=== PATIENT | male | born 1930 | race Caucasian/White ===

== ENCOUNTER 2017-06-29 12:27 | Observation (INO) | payer OTHER, BC, MEDICARE ==
--- NOTE | 2017-06-29 12:53 | EDM.PDOC ---
ED HPI GENERAL MEDICAL PROBLEM - General Stated Complaint: FELLED Time Seen by Provider: 06/29/17 12:27 Source of Information: Reports: Patient History Limitations: Reports: No Limitations - History of Present Illness INITIAL COMMENTS - FREE TEXT/NARRATIVE: HISTORY AND PHYSICAL: History of present illness: [Patient is brought to the emergency room by EMS. Patient was apparently found lying beside his truck, unconscious. The person who found him stated that he slipped while climbing into his truck, causing him to fall, though the actual fall was unwitnessed. Witnesses state the patient was unconscious for 1 minute. The patient denies any recollection of falling and the events surrounding his injury. He remembers eating breakfast this morning but no other details. His primary care provider is the [place] [facility], and no records are available at the time of his presentation to the ER. The patient denies any pain upon presentation. No headache, neck pain or areas of tenderness on the scalp. No chest pain, shortness of breath or difficulty breathing. He has a history of triple bypass, unknown if stents were placed, type 2 diabetes, hypertension. Medication list is not available at the time of this dictation.] Review of systems: As per history of present illness and below otherwise all systems reviewed and negative. Past medical history: As per history of present illness and as reviewed below otherwise noncontributory. Surgical history: As per history of present illness and as reviewed below otherwise noncontributory. Social history: No reported history of drug or alcohol abuse. Family history: As per history of present illness and as reviewed below otherwise noncontributory. Physical exam: HEENT: Small abrasions to posterior scalp, just right of midline. Otherwise normocephalic. PERRLA. No areas of tenderness to his scalp. No lacerations or abrasions noted to his face. No C-spine tenderness. Lungs: Clear to auscultation, breath sounds equal bilaterally. Heart: S1S2, irregularly irregular rate without murmur. Abdomen: Soft, nondistended, nontender. Negative for masses guarding or rebound . Pelvis: Stable nontender. Genitourinary: Deferred. Rectal: Normal sphincter tone. Scant amount of stool in colon negative for occult blood. Extremities: Small abrasion to right lower gastelum. No swelling or cyanosis to feet or lower legs. Full range of motion without pain to feet and lower legs. No weakness to upper or lower extremities. Neuro: Motor and sensory unremarkable throughout. Unable to recall events leading up to the fall. Is able to recall the current year accurately. Diagnostics: [CBC, CMP, PT/INR, troponin, EKG, UA, CT head without contrast, CT C-spine without contrast] Impression: [Syncopal episode Fall] Plan: [Discussed with patient that hemoglobin is slightly low at 10.7 but otherwise lab and CT findings are unremarkable. Reviewed with Dr. Gurrola who agrees to accept patient for observation. Patient in agreement with this plan.] Definitive disposition and diagnosis as appropriate pending reevaluation and review of above. - Related Data Allergies Allergy/AdvReac Type Severity Reaction Status Date / Time Penicillins Allergy Hives Verified 06/29/17 12:42 Home Meds: Home Meds Acetaminophen [Tylenol] 650 mg PO Q6HR PRN 06/29/17 [History] Ascorbic Acid [Vitamin C] 500 mg PO DAILY 06/29/17 [History] Aspirin 325 mg PO DAILY 06/29/17 [History] Hydrochlorothiazide 25 mg PO DAILY 06/29/17 [History] Ibuprofen 200 mg PO TID 06/29/17 [History] Losartan [Cozaar] 25 mg PO DAILY 06/29/17 [History] Metoprolol Succinate [Toprol XL] 50 mg PO BID 06/29/17 [History] Oxybutynin 5 mg PO DAILY 06/29/17 [History] Simvastatin [Zocor] 40 mg PO BEDTIME 06/29/17 [History] Vitamin E Mixed [Vitamin E] 250 units PO DAILY 06/29/17 [History] glipiZIDE [Glucotrol XL] 5 mg PO BID 06/29/17 [History] metFORMIN [Glucophage] 1,000 mg PO DAILY 06/29/17 [History] ED ROS GENERAL - Review of Systems Review Of Systems: ROS reveals no pertinent complaints other than HPI. - Physical Exam Exam: See Below Course - Vital Signs Last Recorded V/S: Last Vital Signs Temp 98.7 F 06/29/17 15:00 Pulse 73 06/29/17 15:00 Resp 20 06/29/17 15:00 BP 138/77 06/29/17 15:00 Pulse Ox 95 06/29/17 17:16 - Orders/Labs/Meds Orders: Active Orders 24 hr Category Date Time Status EKG Documentation Completion [RC] STAT Care 06/29/17 12:31 Active Cervical Spine wo Cont [CT] Stat Exams 06/29/17 12:30 Ordered Head wo Cont [CT] Stat Exams 06/29/17 12:30 Ordered Medication Orders Acetaminophen (Tylenol) 650 mg PO Q4H PRN PRN Reason: Pain Ascorbic Acid (Vitamin C) 500 mg PO DAILY [facility] Aspirin (Aspirin) 325 mg PO DAILY [facility] Insulin Aspart (Novolog) 0 unit SUBCUT TIDAC [facility] PRN Reason: Protocol Last Admin: 06/29/17 17:54 Dose: Not Given Simvastatin (Zocor) 40 mg PO BEDTIME [facility] Sodium Chloride (Saline Flush) 2.5 ml FLUSH ASDIRECTED PRN PRN Reason: Keep Vein Open Labs: Laboratory Tests 06/29/17 06/29/17 06/29/17 Range/Units 13:09 13:09 13:09 WBC 6.25 (4.0-11.0) K/uL RBC 4.17 L (4.50-5.90) M/uL Hgb 10.7 L (13.0-17.0) g/dL Hct 33.7 L (38.0-50.0) % MCV 80.8 (80.0-98.0) fL MCH 25.7 L (27.0-32.0) pg MCHC 31.8 (31.0-37.0) g/dL RDW Std Deviation 42.6 (28.0-62.0) fl RDW Coeff of [place] 15 (11.0-15.0) % Plt Count 246 (150-400) K/uL MPV 9.00 (7.40-12.00) fL Neut % (Auto) 77.8 (48.0-80.0) % Lymph % (Auto) 11.5 L (16.0-40.0) % [place] % (Auto) 9.4 (0.0-15.0) % Eos % (Auto) 1.1 (0.0-7.0) % Baso % (Auto) 0.2 (0.0-1.5) % Neut # (Auto) 4.9 (1.4-5.7) K/uL Lymph # (Auto) 0.7 (0.6-2.4) K/uL [place] # (Auto) 0.6 (0.0-0.8) K/uL Eos # (Auto) 0.1 (0.0-0.7) K/uL Baso # (Auto) 0.0 (0.0-0.1) K/uL Nucleated RBC % 0.0 /100WBC Nucleated RBCs # 0 K/uL INR 1.25 H (0.86-1.11) Sodium 135 L (136-146) mmol/L Potassium 3.6 (3.5-5.1) mmol/L Chloride 104 (98-110) mmol/L Carbon Dioxide 22 (21-31) mmol/L BUN 12 (6.0-23.0) mg/dL Creatinine 0.8 (0.6-1.5) mg/dL Est Cr Clr Drug Dosing TNP Estimated GFR (MDRD) > 60.0 ml/min Glucose 206 H (60-110) mg/dL Calcium 8.3 L (8.8-10.8) mg/dL Magnesium (1.5-2.3) mEq/L Total Bilirubin 0.4 (0.1-1.5) mg/dL AST 15 (5-40) IU/L ALT 16 (8-54) IU/L Alkaline Phosphatase 77 (40-150) Troponin I < 0.10 (0.0-0.29) NG/ML Total Protein 5.9 L (6.0-8.0) g/dL Albumin 2.6 L (3.4-4.8) g/dL Globulin 3.3 (2.0-3.5) g/dL Albumin/Globulin Ratio 0.8 L (1.3-2.8) Urine Color Urine Appearance Urine pH (5.0-8.0) Ur Specific [place] (1.001-1.035) Urine Protein (NEGATIVE) mg/dL Urine Glucose (UA) (NEGATIVE) mg/dL Urine Ketones (NEGATIVE) mg/dL Urine Occult Blood (NEGATIVE) Urine Nitrite (NEGATIVE) Urine Bilirubin (NEGATIVE) Urine Urobilinogen (<2.0) EU/dL Ur Leukocyte Esterase (NEGATIVE) Urine RBC (0-2/HPF) Urine WBC (0-5/HPF) Ur Epithelial Cells (NONE-FEW) Urine Bacteria (NEGATIVE) Urine Mucus (NONE-MOD) 06/29/17 06/29/17 Range/Units 13:09 13:38 WBC (4.0-11.0) K/uL RBC (4.50-5.90) M/uL Hgb (13.0-17.0) g/dL Hct (38.0-50.0) % MCV (80.0-98.0) fL MCH (27.0-32.0) pg MCHC (31.0-37.0) g/dL RDW Std Deviation (28.0-62.0) fl RDW Coeff of [place] (11.0-15.0) % Plt Count (150-400) K/uL MPV (7.40-12.00) fL Neut % (Auto) (48.0-80.0) % Lymph % (Auto) (16.0-40.0) % [place] % (Auto) (0.0-15.0) % Eos % (Auto) (0.0-7.0) % Baso % (Auto) (0.0-1.5) % Neut # (Auto) (1.4-5.7) K/uL Lymph # (Auto) (0.6-2.4) K/uL [place] # (Auto) (0.0-0.8) K/uL Eos # (Auto) (0.0-0.7) K/uL Baso # (Auto) (0.0-0.1) K/uL Nucleated RBC % /100WBC Nucleated RBCs # K/uL INR (0.86-1.11) Sodium (136-146) mmol/L Potassium (3.5-5.1) mmol/L Chloride (98-110) mmol/L Carbon Dioxide (21-31) mmol/L BUN (6.0-23.0) mg/dL Creatinine (0.6-1.5) mg/dL Est Cr Clr Drug Dosing Estimated GFR (MDRD) ml/min Glucose (60-110) mg/dL Calcium (8.8-10.8) mg/dL Magnesium 1.0 L (1.5-2.3) mEq/L Total Bilirubin (0.1-1.5) mg/dL AST (5-40) IU/L ALT (8-54) IU/L Alkaline Phosphatase (40-150) Troponin I (0.0-0.29) NG/ML Total Protein (6.0-8.0) g/dL Albumin (3.4-4.8) g/dL Globulin (2.0-3.5) g/dL Albumin/Globulin Ratio (1.3-2.8) Urine Color YELLOW Urine Appearance CLEAR Urine pH 6.0 (5.0-8.0) Ur Specific [place] 1.025 (1.001-1.035) Urine Protein TRACE (NEGATIVE) mg/dL Urine Glucose (UA) NEGATIVE (NEGATIVE) mg/dL Urine Ketones NEGATIVE (NEGATIVE) mg/dL Urine Occult Blood NEGATIVE (NEGATIVE) Urine Nitrite NEGATIVE (NEGATIVE) Urine Bilirubin NEGATIVE (NEGATIVE) Urine Urobilinogen 0.2 (<2.0) EU/dL Ur Leukocyte Esterase NEGATIVE (NEGATIVE) Urine RBC 0-2 (0-2/HPF) Urine WBC 0-1 (0-5/HPF) Ur Epithelial Cells RARE (NONE-FEW) Urine Bacteria RARE (NEGATIVE) Urine Mucus LIGHT (NONE-MOD) Meds: Medications Generic Name Dose Route Start Last Admin Trade Name Freallyn PRN Reason Stop Dose Admin Acetaminophen 650 mg 06/29/17 15:24 Tylenol PO Q4H PRN Pain Ascorbic Acid 500 mg 06/30/17 09:00 Vitamin C PO DAILY [facility] Aspirin 325 mg 06/30/17 09:00 Aspirin PO DAILY [facility] Insulin Aspart 0 unit 06/29/17 17:15 06/29/17 17:54 Novolog SUBCUT Not Given TIDAC [facility] Protocol Simvastatin 40 mg 06/29/17 21:00 Zocor PO BEDTIME [facility] Sodium Chloride 2.5 ml 06/29/17 15:24 Saline Flush FLUSH ASDIRECTED PRN Keep Vein Open Discontinued Medications Generic Name Dose Route Start Last Admin Trade Name Freq PRN Reason Stop Dose Admin Magnesium Sulfate 4 gm/ Premix 100 mls @ 50 mls/hr 06/29/17 17:02 06/29/17 18 :01 IV 06/29/17 19:01 50 mls/hr ONETIME ONE Administration Non-Formulary Medication 250 units 06/30/17 09:00 Vitamin E Mixed [Vitamin E] PO DAILY [facility] Departure - Departure Time of Disposition: 14:50 Disposition: Refer to Observation Condition: Good Clinical Impression: Syncope - Discharge Information - My Orders Last 24 Hours: My Active Orders 06/29/17 12:30 Cervical Spine wo Cont [CT] Stat Head wo Cont [CT] Stat 06/29/17 12:31 EKG Documentation Completion [RC] STAT - Assessment/Plan Last 24 Hours: My Active Orders 06/29/17 12:30 Cervical Spine wo Cont [CT] Stat Head wo Cont [CT] Stat 06/29/17 12:31 EKG Documentation Completion [RC] STAT
[2017-06-29 13:35] LABS: CHLORIDE,CL 104 mmol/L (98-110); SODIUM,NA 135 mmol/L (136-146)
[2017-06-29] MEDS ORDERED: Acetaminophen 325 MG Tab PO PRN (15:24)
[2017-06-29] MEDS ORDERED: Sodium Chloride 0.9% 2.5 ML Syringe FLUSH PRN (15:24)
--- NOTE | 2017-06-29 16:34 | PCM.HP ---
H&P History of Present Illness - General Date of Service: 06/29/17 Admit Problem/Dx: Admission Diagnosis/Problem Admission Diagnosis/Problem Syncope Source of Information: Patient History Limitations: Reports: No Limitations - History of Present Illness Initial Comments - Free Text/Narative: This 86 year old male with pmh of CABG x 5 (2001), HTN, CHF DM, and irregular heart rhythm presented to the ED this morning after falling and being found next to his truck unconscious. Upon interview he is now remembering the event of the morning, but when he was in the ED he didn't remember much of the morning. 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 They stopped somewhere and he had been out of the truck walking around. He went to get back into the truck he remembers placing his foot on the running board and reaching up for the handle in the car, his foot slipped prior to grabbing ahold of the handle and he went backwards, he doesn't remember hitting the ground. He denies any dizziness, lightheadedness, chest pain, palpitations, headache, blurred vision or feeling any different than normal this morning or prior to fall. He has not had any syncope episode before this. He denies any recent illness, neck pain, URI, fevers, or SOB. He denies any bleeding, no black or bloody stools. He reports his "blood has always been low." No hx of seizures or CVA or TIAs. During his interview he is feeling well and denies headache, blurred vision chest pain or palpitations. He reports he can feel the lump on the back of his head, but thats it. In the ED WBC 6.25, Hgb 10.7, troponin negative, ua negative, INR 1.25, Na 135, BS 206. Head and cervical CT negative for acute findings via verbal report to ED provider. BP 140-160/60-70s. EKG SR with PVCs. He will be admitted for observation due fall with head trauma. PCP, [place] [facility]. - Related Data Allergies/Adverse Reactions: Allergies Allergy/AdvReac Type Severity Reaction Status Date / Time Penicillins Allergy Hives Verified 06/29/17 12:42 Home Medications: Home Meds Acetaminophen [Tylenol] 650 mg PO Q6HR PRN 06/29/17 [History] Ascorbic Acid [Vitamin C] 500 mg PO DAILY 06/29/17 [History] Aspirin 325 mg PO DAILY 06/29/17 [History] Hydrochlorothiazide 25 mg PO DAILY 06/29/17 [History] Ibuprofen 200 mg PO TID 06/29/17 [History] Losartan [Cozaar] 25 mg PO DAILY 06/29/17 [History] Metoprolol Succinate [Toprol XL] 50 mg PO BID 06/29/17 [History] Oxybutynin 5 mg PO DAILY 06/29/17 [History] Simvastatin [Zocor] 40 mg PO BEDTIME 06/29/17 [History] Vitamin E Mixed [Vitamin E] 250 units PO DAILY 06/29/17 [History] glipiZIDE [Glucotrol XL] 5 mg PO BID 06/29/17 [History] metFORMIN [Glucophage] 1,000 mg PO DAILY 06/29/17 [History] Past Medical History HEENT History: Reports: Cataract Cardiovascular History: Reports: Angina, Arrhythmia, Bypass, CAD, Heart Failure , High Cholesterol, Hypertension. Denies: Afib, Blood Clots/VTE/DVT Respiratory History: Reports: None. Denies: Asthma, COPD, PE Gastrointestinal History: Reports: None. Denies: GERD, GI Bleed Genitourinary History: Reports: None. Denies: Acute Renal Failure, Chronic Renal Insuffiency, Diabetic Nephropathy Musculoskeletal History: Reports: Arthritis Endocrine/Metabolic History: Reports: Diabetes, Type II Hematologic History: Reports: Anemia - Infectious Disease History Infectious Disease History: Reports: Chicken Pox, Mumps Social & Family History - Family History Family Medical History: Noncontributory - Tobacco Use Smoking Status *Q: Former Smoker Used Tobacco, but Quit: Yes Month Tobacco Last Used: 30 years ago - Alcohol Use Alcohol Use Frequency: Rarely - Recreational Drug Use Recreational Drug Use: No H&P Review of Systems - Review of Systems: Review Of Systems: See Below General: Reports: No Symptoms. Denies: Fever, Chills, Malaise, Fatigue HEENT: Reports: Vertigo (had a little dizziness ambulating in ED for urine sampe , but reports he feels better now.). Denies: Ear Pain, Sinus Congestion, Sore Throat, Visual Changes Pulmonary: Reports: No Symptoms. Denies: Shortness of Breath, Wheezing, Cough, Sputum Cardiovascular: Reports: Edema (BLE, but at baseline, usually wear compression stockings). Denies: Chest Pain, Palpitations, Dyspnea on Exertion, Lightheadedness, Syncope Gastrointestinal: Reports: No Symptoms. Denies: Abdominal Pain, Black Stool, Bloody Stool, Constipation, Diarrhea, Decreased Appetite, Nausea, Vomiting Genitourinary: Reports: No Symptoms. Denies: Dysuria, Frequency, Burning, Pain Musculoskeletal: Reports: No Symptoms. Denies: Neck Pain Skin: Reports: Wound (occiput) Psychiatric: Reports: No Symptoms Neurological: Reports: No Symptoms Hematologic/Lymphatic: Reports: Anemia. Denies: Easy Bleeding Immunologic: Reports: No Symptoms Exam - Exam Exam: See Below - Vital Signs Vital Signs: Last Vital Signs Temp 97.7 F 06/29/17 12:36 Pulse 94 06/29/17 13:41 Resp 20 06/29/17 13:41 BP 144/78 H 06/29/17 13:41 Pulse Ox 94 L 06/29/17 13:41 Weight: 94.347 kg - Exam General: Alert, Oriented, Cooperative HEENT: Conjunctiva Clear, Mucosa Moist & [place], Nares Patent, Posterior Pharynx Clear Neck: Supple, Trachea Midline, 2 Lungs: Clear to Auscultation, Normal Respiratory Effort Cardiovascular: Regular Rate, Normal S1, Normal S2, Irregular Rhythm GI/Abdominal Exam: Normal Bowel Sounds, Soft, Non-Tender, No Organomegaly, No Distention, No Abnormal Bruit, No Mass, Pelvis Stable Extremities: Normal Range of Motion, Non-Tender, Pedal Edema (+1 pitting edema to BLE, L >R). No: Redness Neuro Extensive - Mental Status: Alert, Oriented x3 Neuro Extensive - Motor, Sensory, Reflexes: CN II-XII Intact, Abnormal Gait ( slightly unsteady) Psychiatric: Alert, Normal Affect, Normal Mood - Patient Data Result Diagrams: 06/29/17 13:09 06/30/17 05:41 *Q Meaningful Use (ADM) - VTE *Q VTE Criteria *Q: - Stroke *Q Stroke Criteria *Q: - AMI *Q AMI Criteria *Q: - Problem List (1) Fall SNOMED Code(s): 0856180 ICD Code: W19.XXXA - UNSPECIFIED FALL, INITIAL ENCOUNTER Status: Acute Current Visit: Yes Qualifiers: Encounter type: initial encounter Qualified Code(s): W19.XXXA - Unspecified fall, initial encounter (2) Head trauma SNOMED Code(s): 35958995 ICD Code: S09.90XA - UNSPECIFIED INJURY OF HEAD, INITIAL ENCOUNTER Status: Acute Current Visit: Yes Qualifiers: Encounter type: initial encounter Qualified Code(s): S09.90XA - Unspecified injury of head, initial encounter (3) HTN (hypertension) SNOMED Code(s): 90656901 ICD Code: I10 - ESSENTIAL (PRIMARY) HYPERTENSION Status: Chronic Current Visit: Yes Qualifiers: Hypertension type: essential hypertension Qualified Code(s): I10 - Essential (primary) hypertension (4) CHF (congestive heart failure) SNOMED Code(s): 04798193 ICD Code: I50.9 - HEART FAILURE, UNSPECIFIED Status: Chronic Current Visit: Yes Qualifiers: Congestive heart failure type: unspecified congestive heart failure type Congestive heart failure chronicity: chronic Qualified Code(s): I50.9 - Heart failure, unspecified (5) DM type 2 (diabetes mellitus, type 2) SNOMED Code(s): 80476377 ICD Code: E11.9 - TYPE 2 DIABETES MELLITUS WITHOUT COMPLICATIONS Status: Chronic Current Visit: Yes Qualifiers: Diabetes mellitus complication status: without complication Diabetes mellitus detention insulin use: without rn long term care use Qualified Code(s): E11.9 - Type 2 diabetes mellitus without complications (6) Hx of CABG SNOMED Code(s): 835829039 ICD Code: Z95.1 - PRESENCE OF AORTOCORONARY BYPASS GRAFT Status: Chronic Current Visit: Yes (7) Irregular cardiac rhythm SNOMED Code(s): 477405894, 153910498 ICD Code: I49.9 - CARDIAC ARRHYTHMIA, UNSPECIFIED Status: Chronic Current Visit: Yes Problem List Initiated/Reviewed/Updated: Yes Orders Last 24hrs: Active Orders 24 hr Category Date Time Status Antiembolic Devices [RC] PER UNIT ROUTINE Care 06/29/17 15:26 Active Intake and Output [RC] QSHIFT Care 06/29/17 15:24 Active Oxygen Therapy [RC] PRN Care 06/29/17 15:24 Active Telemetry Monitoring [Cardiac Monitoring] [RC] . Care 06/29/17 15:15 Active DIRECTED Telemetry Monitoring [Cardiac Monitoring] [RC] . Care 06/29/17 15:27 Active DIRECTED Up With Assistance [RC] ASDIRECTED Care 06/29/17 15:24 Active VTE/DVT Education [RC] PER UNIT ROUTINE Care 06/29/17 15:24 Active Vital Signs [RC] Q4H Care 06/29/17 15:24 Active PT Evaluation and Treatment [CONS] Routine Cons 06/29/17 15:24 Active Heart Healthy Diet [DIET] Diet 06/29/17 Dinner Active Acetaminophen [Tylenol] Med 06/29/17 15:24 Ordered 650 mg PO Q4H PRN Sodium Chloride 0.9% [Saline Flush] Med 06/29/17 15:24 Ordered 2.5 ml FLUSH ASDIRECTED PRN Saline Lock Insert [OM.PC] Routine Oth 06/29/17 15:24 Ordered Sequential Compression Device [OM.PC] Per Unit Routine Oth 06/29/17 15:25 Ordered Resuscitation Status Routine Resus Stat 06/29/17 15:51 Ordered Medication Orders Acetaminophen (Tylenol) 650 mg PO Q4H PRN PRN Reason: Pain Sodium Chloride (Saline Flush) 2.5 ml FLUSH ASDIRECTED PRN PRN Reason: Keep Vein Open Assessment/Plan Comment:: This 86 year old male admitted for fall and head trauma 1. Fall: Questionable syncope. Will monitor on telemetry, reported known irregular HR "for years" Frequent PVCs noted will monitor Magnesium. K+ 3.6. Will consult PT in am to evaluate and treat. Obtain Orthostatic VS. Neuro checks q4 hr. 2. HTN: If Orthostatic BP stable, will start home medications, including HCTZ, Losartan, and Metoprolol 3. DM type 2: Check BID with meals and hold PO meds and use Novolog SSI. 4. Hx CHF: Monitor, at this time stable VTE prophylaxis: SCDs only due to fall. Discharge diagnoses: Fall, likely due to a slip not syncope HTN DM type 2 CHF CAD Massiel did well overnight, telemetry remained normal baseline rhythm, with frequent PVCs. He was supplemented with magnesium IV yesterday. He was seen by PT and did well. No dizziness or lightheadedness today or during the night. No headache, nausea or vomiting. No concerns with blurred vision. He is requesting discharge today. His buttocks it sore "from falling on it". No bruising noted and no paraspinal tenderness. Orthostatic BP negative. Will discharge home today , continue all home medications as previously prescribed. He is to follow up with [facility]. Return to ED or clinic if concerns should arise.
[2017-06-29] MEDS ORDERED: Magnesium Sulfate/Water 4 GM in Premix Bag 1 BAG IV ONE (17:02)
[2017-06-29] MEDS: Insulin Aspart 100 Units/ML 3 ML Pen SUBCUT SCH (17:54)
[2017-06-29] MEDS ORDERED: Simvastatin 40 MG Tab PO SCH (21:00)
[2017-06-30 06:05] LABS: CHLORIDE,CL 107 mmol/L (98-110); SODIUM,NA 139 mmol/L (136-146)
[2017-06-30] MEDS: Insulin Aspart 100 Units/ML 3 ML Pen SUBCUT SCH ×2 (06:32→12:23)
[2017-06-30] MEDS ORDERED: Calcium Carbonate 500 MG Tab.Chew PO ONE (07:43)
--- NOTE | 2017-06-30 08:33 | CT ---
EXAMINATION: Non contrast CT head. Coronal and sagittal reformats. HISTORY: Fall FINDINGS: No evidence of intra or extra axial hemorrhage, mass, midline shift, hydrocephalus or edema. Mild ge neralized atrophy and moderate symmetric prominence of the ventricles. Mild periventricular hypodensi ties also noted. No hypoattenuation changes in the major vascular territories to suggest acute infarct. No abnormal i ntracranial calcifications are detected. Vascular calcifications are noted. Mild mucosal thickening within the right maxillary sinus. The mastoid air cells are clear. The orbits and globes are symmetric. Pituitary fossa appears unremarkable. The calvarium is intact. No evidence of skull fracture. IMPRESSION: 1. No acute intracranial findings. 2. Generalized atrophy and mild small vessel ischemic changes.
--- NOTE | 2017-06-30 08:35 | CT ---
EXAMINATION: CT cervical spine HISTORY: Fall COMPARISON: None TECHNIQUE: Axial CT images obtained through the cervical spine without contrast. Coronal and sagittal reconstructions obtained. FINDINGS: There is straightening of the normal cervical lordosis. The vertebral body heights appear m aintained. There is no fracture or acute osseous abnormality demonstrated. Degenerative changes noted throughout the cervical spine including facet arthritic changes, marginal osteophytes, and osteophyt e disc complexes, most prominent at C5-C6. The paravertebral soft tissues appear grossly unremarkable . Mild carotid artery calcifications. The lung apices are clear. IMPRESSION: 1. Degenerative changes noted within the cervical spine without an acute osseous abnormality.
[2017-06-30] MEDS ORDERED: Ascorbic Acid 500 MG Tab PO SCH (09:00)
[2017-06-30] MEDS ORDERED: Aspirin 325 MG Tab PO SCH (09:00)
[2017-06-30] MEDS ORDERED: VITAMIN E PO SCH (09:00)
== END 2017-06-30 13:00 | disposition home or self-care (01) ==
LOC: MW.ED 12:27 → MW.MS 14:50
PROVIDERS: ADMIT Internal Medicine; ATTEND Internal Medicine
DX: R55 Syncope and collapse (principal); S09.90XA Unspecified injury of head, initial encounter; I11.0 Hypertensive heart disease with heart failure; I50.9 Heart failure, unspecified; I25.10 Atherosclerotic heart disease of native coronary artery without angina pectoris; E11.9 Type 2 diabetes mellitus without complications; H26.9 Unspecified cataract; E78.00 Pure hypercholesterolemia, unspecified; D64.9 Anemia, unspecified; W19.XXXA Unspecified fall, initial encounter; Z87.891 Personal history of nicotine dependence; Z88.0 Allergy status to penicillin; Z79.82 Long term (current) use of aspirin; Z79.84 Long term (current) use of oral hypoglycemic drugs; Z79.899 Other long term (current) drug therapy; Z95.1 Presence of aortocoronary bypass graft
CPT/HCPCS: 36415; 70450; 72125; 80048; 80053; 81001; 82962; 83735; 84484; 85025; 85610; 93005; 97161; 99285; A9270; G0378; J3475; 96374; 99283

== ENCOUNTER 2017-07-14 17:35 | Inpatient (IN) | payer MEDICARE, BC ==
[2017-07-14] MEDS: Sodium Chloride 0.9% 1,000 ML IV SCH (17:56)
[2017-07-14 18:31] LABS: CHLORIDE,CL 107 mmol/L (98-110); SODIUM,NA 140 mmol/L (136-146)
[2017-07-14] MEDS ORDERED: Furosemide 40 MG/4 ML VIAL IVPUSH ONE (18:31)
--- NOTE | 2017-07-14 18:31 | EDM.PDOC ---
<Juan A Nelson - Last Filed: 07/14/17 18:52> ED HPI GENERAL MEDICAL PROBLEM - General Chief Complaint: General Stated Complaint: WEAKNESS Time Seen by Provider: 07/14/17 18:29 Source of Information: Reports: Patient, EMS - History of Present Illness INITIAL COMMENTS - FREE TEXT/NARRATIVE: HISTORY AND PHYSICAL: History of present illness: [Patient is an 86-year-old gentleman who arrives by ambulance, essentially to his surprise. EMS had received a call the patient with altered mental status and generalized weakness, on arrival to the home they found the door was locked in could not gain entry police were called who kicked in his door they found him sleeping, he had been incontinent of urine, it is unclear who called EMS as patient states he certainly didn't he does complain of the generalized weakness unable to ambulate on his own today. No other complaints such as fever nausea vomiting diarrhea constipation chest pain shortness breath headache dizziness palpitation no bowel symptoms ] Review of systems: As per history of present illness and below otherwise all systems reviewed and negative. Past medical history: As per history of present illness and as reviewed below otherwise noncontributory. Surgical history: As per history of present illness and as reviewed below otherwise noncontributory. Social history: No reported history of drug or alcohol abuse. Family history: As per history of present illness and as reviewed below otherwise noncontributory. Physical exam: HEENT: Atraumatic, normocephalic, pupils reactive, negative for conjunctival pallor or scleral icterus, mucous membranes moist, throat clear, neck supple, nontender, trachea midline. Lungs: Clear to auscultation, breath sounds equal bilaterally, chest nontender. Heart: S1S2, regular, negative for clicks, rubs, or JVD. Abdomen: Soft, nondistended, nontender. Negative for masses or hepatosplenomegaly. Negative for costovertebral tenderness. Pelvis: Stable nontender. Genitourinary: Deferred. Rectal: Deferred. Extremities: Atraumatic, negative for cords or calf pain. Neurovascular unremarkable. 3+ edema Neuro: Awake, alert, oriented. Cranial nerves II through XII unremarkable. Cerebellum unremarkable. Motor and sensory unremarkable throughout. Exam nonfocal. Diagnostics: [CBC CMP cardiac enzymes BNP chest 1 view , head CT no contrast EKG ] Therapeutics: []Normal saline TKO Lasix 40 mg IV KCl 20 mEq by mouth now Patient will have to be endorsed to Dr. Plummer at shift change for disposition and further treatment pending return of all lab and imaging Impression: [Generalized weakness 3+ lower extremity edema Hypokalemia ] Definitive disposition and diagnosis as appropriate pending reevaluation and review of above. Abdominal Pain Score (Numeric/FACES): 2 - Related Data Allergies Allergy/AdvReac Type Severity Reaction Status Date / Time Penicillins Allergy Hives Verified 07/14/17 17:37 Home Meds: Home Meds Acetaminophen [Tylenol] 650 mg PO Q6HR PRN 06/29/17 [History] Ascorbic Acid [Vitamin C] 500 mg PO DAILY 06/29/17 [History] Aspirin 325 mg PO DAILY 06/29/17 [History] Hydrochlorothiazide 25 mg PO DAILY 06/29/17 [History] Ibuprofen 200 mg PO TID 06/29/17 [History] Losartan [Cozaar] 25 mg PO DAILY 06/29/17 [History] Metoprolol Succinate [Toprol XL] 50 mg PO BID 06/29/17 [History] Oxybutynin 5 mg PO DAILY 06/29/17 [History] Simvastatin [Zocor] 40 mg PO BEDTIME 06/29/17 [History] Vitamin E Mixed [Vitamin E] 250 units PO DAILY 06/29/17 [History] glipiZIDE [Glucotrol XL] 5 mg PO BID 06/29/17 [History] metFORMIN [Glucophage] 1,000 mg PO DAILY 06/29/17 [History] Past Medical History HEENT History: Reports: Cataract Cardiovascular History: Reports: Angina, Arrhythmia, Bypass, CAD, Heart Failure , High Cholesterol, Hypertension Respiratory History: Reports: None Gastrointestinal History: Reports: None Genitourinary History: Reports: None Musculoskeletal History: Reports: Arthritis Endocrine/Metabolic History: Reports: Diabetes, Type II Hematologic History: Reports: Anemia - Infectious Disease History Infectious Disease History: Reports: Chicken Pox, Mumps Social & Family History - Family History Family Medical History: Noncontributory - Tobacco Use Smoking Status *Q: Former Smoker Used Tobacco, but Quit: Yes Month Tobacco Last Used: 30 years ago Second Hand Smoke Exposure: No - Caffeine Use Caffeine Use: Reports: Coffee - Recreational Drug Use Recreational Drug Use: No Course - Vital Signs Last Recorded V/S: Last Vital Signs Temp 37.4 C 07/14/17 20:00 Pulse 92 07/14/17 20:00 Resp 20 07/14/17 20:00 BP 116/57 L 07/14/17 20:00 Pulse Ox 95 07/14/17 20:00 - Orders/Labs/Meds Orders: Active Orders 24 hr Category Date Time Status Patient Status [ADT] Stat ADT 07/14/17 20:54 Ordered Chest 1V Frontal [CR] Stat Exams 07/14/17 17:40 Taken Head wo Cont [CT] Stat Exams 07/14/17 17:40 Taken Sodium Chloride 0.9% [Normal Saline] 1,000 ml Med 07/14/17 17:45 Active IV STAT Medication Orders Sodium Chloride (Normal Saline) 1,000 mls @ 125 mls/hr IV STAT NADINE Last Admin: 07/14/17 17:56 Dose: 125 mls/hr Labs: Laboratory Tests 07/14/17 07/14/17 07/14/17 Range/Units 17:53 17:53 17:53 WBC 12.71 H (4.0-11.0) K/uL RBC 4.25 L (4.50-5.90) M/uL Hgb 10.8 L (13.0-17.0) g/dL Hct 34.0 L (38.0-50.0) % MCV 80.0 (80.0-98.0) fL MCH 25.4 L (27.0-32.0) pg MCHC 31.8 (31.0-37.0) g/dL RDW Std Deviation 44.4 (28.0-62.0) fl RDW Coeff of Damion 15 (11.0-15.0) % Plt Count 269 (150-400) K/uL MPV 8.90 (7.40-12.00) fL Neut % (Auto) 91.6 H (48.0-80.0) % Lymph % (Auto) 5.0 L (16.0-40.0) % [place] % (Auto) 3.4 (0.0-15.0) % Eos % (Auto) 0.0 (0.0-7.0) % Baso % (Auto) 0.0 (0.0-1.5) % Neut # (Auto) 11.7 H (1.4-5.7) K/uL Lymph # (Auto) 0.6 (0.6-2.4) K/uL [place] # (Auto) 0.4 (0.0-0.8) K/uL Eos # (Auto) 0.0 (0.0-0.7) K/uL Baso # (Auto) 0.0 (0.0-0.1) K/uL Nucleated RBC % 0.0 /100WBC Nucleated RBCs # 0 K/uL INR 1.33 H (0.86-1.11) Sodium 140 (136-146) mmol/L Potassium 3.0 L (3.5-5.1) mmol/L Chloride 107 (98-110) mmol/L Carbon Dioxide 21 (21-31) mmol/L BUN 9 (6.0-23.0) mg/dL Creatinine 0.8 (0.6-1.5) mg/dL Est Cr Clr Drug Dosing TNP Estimated GFR (MDRD) > 60.0 ml/min Glucose 170 H (60-110) mg/dL Calcium 8.2 L (8.8-10.8) mg/dL Total Bilirubin 0.6 (0.1-1.5) mg/dL AST 14 (5-40) IU/L ALT 14 (8-54) IU/L Alkaline Phosphatase 92 (40-150) Creatine Kinase 30 (9-236) IU/L CK-MB (CK-2) 0.4 (0-6.6) ng/ml Troponin I < 0.10 (0.0-0.29) NG/ML B-Natriuretic Peptide (<100) PG/ML Total Protein 6.0 (6.0-8.0) g/dL Albumin 2.7 L (3.4-4.8) g/dL Globulin 3.3 (2.0-3.5) g/dL Albumin/Globulin Ratio 0.8 L (1.3-2.8) Urine Color Urine Appearance Urine pH (5.0-8.0) Ur Specific Alexander (1.001-1.035) Urine Protein (NEGATIVE) mg/dL Urine Glucose (UA) (NEGATIVE) mg/dL Urine Ketones (NEGATIVE) mg/dL Urine Occult Blood (NEGATIVE) Urine Nitrite (NEGATIVE) Urine Bilirubin (NEGATIVE) Urine Urobilinogen (<2.0) EU/dL Ur Leukocyte Esterase (NEGATIVE) Urine RBC (0-2/HPF) Urine WBC (0-5/HPF) Ur Epithelial Cells (NONE-FEW) Urine Bacteria (NEGATIVE) 07/14/17 07/14/17 Range/Units 17:53 20:05 WBC (4.0-11.0) K/uL RBC (4.50-5.90) M/uL Hgb (13.0-17.0) g/dL Hct (38.0-50.0) % MCV (80.0-98.0) fL MCH (27.0-32.0) pg MCHC (31.0-37.0) g/dL RDW Std Deviation (28.0-62.0) fl RDW Coeff of Damion (11.0-15.0) % Plt Count (150-400) K/uL MPV (7.40-12.00) fL Neut % (Auto) (48.0-80.0) % Lymph % (Auto) (16.0-40.0) % [place] % (Auto) (0.0-15.0) % Eos % (Auto) (0.0-7.0) % Baso % (Auto) (0.0-1.5) % Neut # (Auto) (1.4-5.7) K/uL Lymph # (Auto) (0.6-2.4) K/uL [place] # (Auto) (0.0-0.8) K/uL Eos # (Auto) (0.0-0.7) K/uL Baso # (Auto) (0.0-0.1) K/uL Nucleated RBC % /100WBC Nucleated RBCs # K/uL INR (0.86-1.11) Sodium (136-146) mmol/L Potassium (3.5-5.1) mmol/L Chloride (98-110) mmol/L Carbon Dioxide (21-31) mmol/L BUN (6.0-23.0) mg/dL Creatinine (0.6-1.5) mg/dL Est Cr Clr Drug Dosing Estimated GFR (MDRD) ml/min Glucose (60-110) mg/dL Calcium (8.8-10.8) mg/dL Total Bilirubin (0.1-1.5) mg/dL AST (5-40) IU/L ALT (8-54) IU/L Alkaline Phosphatase (40-150) Creatine Kinase (9-236) IU/L CK-MB (CK-2) (0-6.6) ng/ml Troponin I (0.0-0.29) NG/ML B-Natriuretic Peptide 152 H (<100) PG/ML Total Protein (6.0-8.0) g/dL Albumin (3.4-4.8) g/dL Globulin (2.0-3.5) g/dL Albumin/Globulin Ratio (1.3-2.8) Urine Color YELLOW Urine Appearance CLEAR Urine pH 6.0 (5.0-8.0) Ur Specific Alexander 1.015 (1.001-1.035) Urine Protein NEGATIVE (NEGATIVE) mg/dL Urine Glucose (UA) NEGATIVE (NEGATIVE) mg/dL Urine Ketones TRACE H (NEGATIVE) mg/dL Urine Occult Blood NEGATIVE (NEGATIVE) Urine Nitrite NEGATIVE (NEGATIVE) Urine Bilirubin NEGATIVE (NEGATIVE) Urine Urobilinogen 0.2 (<2.0) EU/dL Ur Leukocyte Esterase NEGATIVE (NEGATIVE) Urine RBC 0-1 (0-2/HPF) Urine WBC 0-2 (0-5/HPF) Ur Epithelial Cells OCCASIONAL (NONE-FEW) Urine Bacteria FEW (NEGATIVE) Meds: Medications Generic Name Dose Route Start Last Admin Trade Name Freq PRN Reason Stop Dose Admin Sodium Chloride 1,000 mls @ 125 mls/hr 07/14/17 17:45 07/14/17 17:56 Normal Saline IV 125 mls/hr STAT NADINE Administration Discontinued Medications Generic Name Dose Route Start Last Admin Trade Name Freq PRN Reason Stop Dose Admin Furosemide 40 mg 07/14/17 18:31 07/14/17 19:52 Lasix IVPUSH 07/14/17 18:32 40 mg NOW ONE Administration Potassium Chloride 20 meq 07/14/17 18:50 07/14/17 19:52 Klor-Con M20 PO 07/14/17 18:51 20 meq ONETIME ONE Administration Departure - Departure Disposition: Refer to Observation Clinical Impression: Generalized weakness, Dependent edema, Hypokalemia - Discharge Information Referrals: PCP,Unknown [Primary Care Provider] - Forms: ED Department Discharge - My Orders Last 24 Hours: My Active Orders 07/14/17 20:54 Patient Status [ADT] Stat - Assessment/Plan Last 24 Hours: My Active Orders 07/14/17 20:54 Patient Status [ADT] Stat <Anai Bennett - Last Filed: 07/14/17 20:56> ED HPI GENERAL MEDICAL PROBLEM - History of Present Illness INITIAL COMMENTS - FREE TEXT/NARRATIVE: Dr. Bennett dictating addendum note as I have assumed care of this patient at 1900 hrs. I agree with history and physical as above and the patient is a very bad historian. He does not recall that he was found in his room laying in urine. He does say that he had his prostate removed and he has been dribbling and he is not sure about that. He does not complain of shortness of breath or chest pain but he says he is very thirsty. It is unclear if he has been compliant with his medications. By the computer he has a history of hypertension hypercholesterolemia non-insulin dependent diabetes and congestive heart failure. When I asked him about his pitting edema of his lower extremities he says that it goes away if he wears his compression stockings. He denies pain to the area. He is unable to tell me if he has been preparing food for himself for it fever and 8 today. He speaks clearly and easily and does not have slurred speech. On physical exam his breath sounds are equal bilaterally and do not exhibit any coarse wheezing stridor or work of breathing. There are diminished breath sounds in the bases. His abdomen is soft and he has a midline median sternotomy scar. Back: There are no midline step-offs tenderness defects of the thoracic lumbar spine and no evidence of any breakdown erythema or skin changes. His prescription bottles say that he follows at the [facility] in [place] and he is not sure if he has a local provider. Patient overall appears very stable and nontoxic. I followed up his labs that he does have hypokalemia with a potassium of 3.0 and we are currently awaiting CT scan chest x-ray results as well as a UA. His brother has called and spoken to nursing and would like to be notified of his disposition. At this point I will follow-up the remainder of the testing results and plan on admission for altered mental status and inability to care for self until social work specialist can be involved. Patient does admit to me that he has had generalized weakness but denies any falls and there is no evidence of any trauma seen on my evaluation. The patient was unable to urinate other than some dribbles so an in and out catheter was performed with 300 mL of urine output. The urine has been sent for testing. 2049: Case was discussed with Dr. Gurrola our hospitalist accepts the patient for observation admission. I will also have nursing contact the brother to inform him of the disposition. ED ROS GENERAL - Review of Systems Review Of Systems: ROS reveals no pertinent complaints other than HPI. ED EXAM, GENERAL - Physical Exam Exam: See Below (See dictation) Departure - Departure Time of Disposition: 20:55 Condition: Good - My Orders Last 24 Hours: My Active Orders 07/14/17 20:54 Patient Status [ADT] Stat - Assessment/Plan Last 24 Hours: My Active Orders 07/14/17 20:54 Patient Status [ADT] Stat
[2017-07-14] MEDS ORDERED: Potassium Chloride 20 MEQ Tab.ER PO ONE ×2 (18:50→23:37)
--- NOTE | 2017-07-14 23:54 | PCM.HP ---
H&P History of Present Illness - General Admit Problem/Dx: Admission Diagnosis/Problem Admission Diagnosis/Problem Weakness - History of Present Illness Initial Comments - Free Text/Narative: 86 yo male with pmh of DM and CHF who presents with generalized weakness. EMS was called by friend and patient was found in locked house incontinent of urine and unable to ambulate. Patient reports he has not been eating well the past few weeks and such became weak and unable to get around the house. He denies any fevers, chills, cough, or shortness of breath. Abdominal Pain Score (Numeric/FACES): 7 - Related Data Allergies/Adverse Reactions: Allergies Allergy/AdvReac Type Severity Reaction Status Date / Time Penicillins Allergy Hives Verified 07/15/17 06:31 Home Medications: Home Meds Acetaminophen [Tylenol] 650 mg PO Q6HR PRN 06/29/17 [History] Ascorbic Acid [Vitamin C] 500 mg PO DAILY 06/29/17 [History] Aspirin 325 mg PO DAILY 06/29/17 [History] Hydrochlorothiazide 25 mg PO DAILY 06/29/17 [History] Ibuprofen 200 mg PO TID 06/29/17 [History] Losartan [Cozaar] 25 mg PO DAILY 06/29/17 [History] Metoprolol Succinate [Toprol XL] 50 mg PO BID 06/29/17 [History] Oxybutynin 5 mg PO DAILY 06/29/17 [History] Simvastatin [Zocor] 40 mg PO BEDTIME 06/29/17 [History] Vitamin E Mixed [Vitamin E] 250 units PO DAILY 06/29/17 [History] glipiZIDE [Glucotrol XL] 5 mg PO BID 06/29/17 [History] metFORMIN [Glucophage] 1,000 mg PO DAILY 06/29/17 [History] Past Medical History HEENT History: Reports: Cataract Cardiovascular History: Reports: Angina, Arrhythmia, Bypass, CAD, Heart Failure , High Cholesterol, Hypertension Respiratory History: Reports: None Gastrointestinal History: Reports: None Genitourinary History: Reports: None Musculoskeletal History: Reports: Arthritis Endocrine/Metabolic History: Reports: Diabetes, Type II Hematologic History: Reports: Anemia - Infectious Disease History Infectious Disease History: Reports: Chicken Pox, Mumps Social & Family History - Family History Family Medical History: Noncontributory - Tobacco Use Smoking Status *Q: Former Smoker Used Tobacco, but Quit: Yes Month Tobacco Last Used: 30 years ago Second Hand Smoke Exposure: No - Caffeine Use Caffeine Use: Reports: Coffee - Recreational Drug Use Recreational Drug Use: No H&P Review of Systems - Review of Systems: Review Of Systems: ROS reveals no pertinent complaints other than HPI. Exam - Exam Exam: See Below - Vital Signs Vital Signs: Last Vital Signs Temp 37.4 C 07/14/17 20:00 Pulse 102 H 07/14/17 21:28 Resp 19 07/14/17 21:28 BP 108/62 07/14/17 21:28 Pulse Ox 95 07/14/17 21:28 - Exam General: Alert, Oriented Lungs: Clear to Auscultation, Normal Respiratory Effort Cardiovascular: Regular Rate, Regular Rhythm GI/Abdominal Exam: Soft, Tender (mild tenderness to palpation in epigastrum). No: Rigid, Rebound Extremities: Pedal Edema (+1) Skin: Warm, Dry, Intact Neurological: No: Focal Deficit - Patient Data Lab Results Last 24 hrs: Laboratory Results - last 24 hr 07/14/17 Range/Units 22:43 POC Glucose 160 H (60-110) mg/dL Result Diagrams: 07/15/17 06:09 07/15/17 06:09 *Q Meaningful Use (ADM) - VTE *Q VTE Criteria *Q: - Stroke *Q Stroke Criteria *Q: - AMI *Q AMI Criteria *Q: Problem List Initiated/Reviewed/Updated: Yes Orders Last 24hrs: Active Orders 24 hr Category Date Time Status Accu Check [Blood Glucose Check, Bedside] [RC] TIDAC Care 07/15/17 07:30 Active Antiembolic Devices [RC] PER UNIT ROUTINE Care 07/14/17 23:48 Ordered Oxygen Therapy [RC] PRN Care 07/14/17 23:47 Ordered VTE/DVT Education [RC] PER UNIT ROUTINE Care 07/14/17 23:47 Ordered Vital Signs [RC] Q4H Care 07/14/17 23:47 Ordered PT Evaluation and Treatment [CONS] Routine Cons 07/14/17 23:47 Ordered ADA Diabetic [[place] [employer] Diet] [DIET Diet 07/15/17 Breakfast Active ] Abdomen 1V Flat [CR] Routine Exams 07/14/17 23:46 Ordered Abdomen Comp [US] Routine Exams 07/14/17 23:46 Ordered BMP [BASIC METABOLIC PANEL,BMP] [CHEM] Routine Lab 07/15/17 05:00 Ordered CBC WITH AUTO DIFF [HEME] Routine Lab 07/15/17 05:00 Ordered Enoxaparin [Lovenox] Med 07/15/17 09:00 Ordered 30 mg SUBCUT DAILY Insulin Aspart [NovoLOG] Med 07/15/17 07:30 Active See Protocol SUBCUT TIDAC Sequential Compression Device [OM.PC] Per Unit Routine Oth 07/14/17 23:47 Ordered Resuscitation Status Routine Resus Stat 07/14/17 23:47 Ordered Medication Orders Sodium Chloride (Normal Saline) 1,000 mls @ 125 mls/hr IV STAT NADINE Last Admin: 07/14/17 17:56 Dose: 125 mls/hr Insulin Aspart (Novolog) 0 unit SUBCUT TIDAC NADINE PRN Reason: Protocol Assessment/Plan Comment:: 86 yo male who presents with generalized weakness and anorexia. Will check abdominal x-ray and ultrasound. Patient does not appear toxic but will continue to monitor. Physical therapy has been consulted.
[2017-07-15] MEDS: Sodium Chloride 0.9% 1,000 ML IV SCH ×2 (02:26→09:54)
[2017-07-15] MEDS: Insulin Aspart 100 Units/ML 3 ML Pen SUBCUT SCH ×3 (06:46→16:46)
[2017-07-15 07:09] LABS: CHLORIDE,CL 106 mmol/L (98-110); SODIUM,NA 137 mmol/L (136-146)
[2017-07-15] MEDS ORDERED: Potassium Chloride 20 MEQ Tab.ER PO ONE (08:23)
[2017-07-15] MEDS: Enoxaparin 30 MG/0.3 ML Syringe SUBCUT SCH (09:23)
[2017-07-15] MEDS ORDERED: Magnesium Sulfate/Water 4 GM in Premix Bag 1 BAG IV ONE (09:59)
--- NOTE | 2017-07-15 10:04 | US ---
EXAMINATION: Abdominal ultrasound HISTORY: Pain COMPARISON: None TECHNIQUE: Grayscale and color Doppler images obtained of the abdomen. FINDINGS: The visualized pancreas appears normal. The liver is minimally increased in echotexture wit hout a focal hepatic mass. The gallbladder wall thickness is normal. No pericholecystic fluid. Small gallstones are noted. Common bile duct measures 3 mm. The right kidney measures 11.3 cm and the left kidney measures at least 9.3 cm [id number] without evidence hydronephrosis. The spleen appears vane sly normal. No abdominal ascites. Visualized IVC is normal. Mild ectasia of the mid aorta measuring u p to 2.8 cm. IMPRESSION: 1. Cholelithiasis without evidence cholecystitis. 2. Minimal fatty infiltration of the liver. 3. Mild ectasia of the mid aorta measuring up to 2.8 cm.
--- NOTE | 2017-07-15 11:14 | CR ---
EXAM DATE: 07/14/17 PATIENT'S AGE: 86 Patient: MANUEL GOODMAN Facility: [place], [place] Site . Site : 1930 Study: XRay Chest [id number] 6:48:53 PM Ordering Physician: Margot Velazco Final Report: Clinical INDICATION: Weakness. Findings: There has been a previous sternotomy. The heart is normal in size. There is mild linear atelectasis left lung base. The lungs are otherwise clear. The pulmonary vasculature and pleural surfaces are unremarkable. Impression: Previous sternotomy. Mild linear atelectasis at the left lung base. Dictated by Billy Brody MD @ Jul 14 2017 7:17PM (Electronic Signature) Report Signed by Proxy. G[place]
--- NOTE | 2017-07-15 11:15 | CT ---
EXAM DATE: 07/14/17 PATIENT'S AGE: 86 Patient: MANUEL GOODMAN Facility: [place], [place] Site . Site : 1932 Study: CT Head WO CONT [id number] 6:49:44 PM Ordering Physician: Margot Velazco Final Report: INDICATION: WEAKNESS TECHNIQUE: CT Head without contrast. COMPARISON: 06/29/2017 FINDINGS: There is no sign of intracranial hemorrhage or mass effect. Diffuse cerebral atrophy. Nonspecific low-attenuation along the periventricular white matter, most likely related to chronic microvascular disease. The orellana-white differentiation is preserved. No abnormal intra-axial or extra-axial fluid collection. Nonspecific fluid within the right maxillary sinus. No acute disease of the mastoid air cells. No fracture evident. No scalp hematoma/ laceration. IMPRESSION: 1. No acute intracranial process. 2. Nonspecific fluid within the right maxillary sinus. If there is concern for acute facial trauma consider further evaluation with unenhanced maxillofacial CT. Dictated by: Poncho Merritt MD @ 07/14/2017 19:21:03 (Electronic Signature) Report Signed by Proxy. [facility]
--- NOTE | 2017-07-15 11:31 | CR ---
EXAM DATE: 07/14/17 PATIENT'S AGE: 86 Patient: MANUEL GOODMAN Facility: [place], [place] Site . Site : 1930 Study: XRay Abdomen [id number] 12:35:53 AM Ordering Physician: Galileo Connelly Final Report: INDICATION: ABD PAIN INDICATION: Abdominal pain TECHNIQUE: Abdomen 1 view. COMPARISON: None FINDINGS: Bowel: Bowel pattern is normal. Soft tissues: No sign of free air. No sign of soft tissue mass. No suspicious calcifications. Bones: Unremarkable for age. IMPRESSION: Unremarkable abdomen. Dictated by Jose Guerra MD @ 07/15/2017 12:55:16 AM Dictated by: Jose Guerra MD @ 07/15/2017 00:55:28 (Electronic Signature) Report Signed by Proxy. [facility]
--- NOTE | 2017-07-15 13:57 | PCM.PN ---
- General Info Date of Service: 07/15/17 Subjective Update: 86-year-old male with a history of type 2 diabetes, CHF that on our service secondary to abdominal pain. As per the attending physician, as patient complained of epigastric pain yesterday. the patient this morning, however, he tells me that his pain is located in his lower quadrants bilaterally. He has had a bowel movement. He's had no difficulty urinating. However, as per the notes in the past, and looks like he had episodes of incontinence. Denies any fevers chills chest pain nausea or vomiting. No other complaints. - Review of Systems General: Reports: Other (See history of present illness) - Patient Data Vitals - Most Recent: Last Vital Signs Temp 36.4 C 07/15/17 11:56 Pulse 87 07/15/17 11:56 Resp 22 H 07/15/17 11:56 BP 116/58 L 07/15/17 11:56 Pulse Ox 93 L 07/15/17 11:56 Weight - Most Recent: 91.081 kg I&O - Last 24 Hours: Intake & Output 07/14/17 07/15/17 07/15/17 22:59 06:59 14:59 Intake Total 1200 Output Total 950 275 Balance 250 -275 Lab Results Last 24 Hours: Laboratory Results - last 24 hr 07/14/17 07/15/17 07/15/17 Range/Units 22:43 06:09 06:09 WBC 9.16 (4.0-11.0) K/uL RBC 3.91 L (4.50-5.90) M/uL Hgb 9.9 L (13.0-17.0) g/dL Hct 31.3 L (38.0-50.0) % MCV 80.1 (80.0-98.0) fL MCH 25.3 L (27.0-32.0) pg MCHC 31.6 (31.0-37.0) g/dL RDW Std Deviation 44.9 (28.0-62.0) fl RDW Coeff of Damion 15 (11.0-15.0) % Plt Count 259 (150-400) K/uL MPV 8.80 (7.40-12.00) fL Neut % (Auto) 89.8 H (48.0-80.0) % Lymph % (Auto) 5.0 L (16.0-40.0) % [place] % (Auto) 4.9 (0.0-15.0) % Eos % (Auto) 0.2 (0.0-7.0) % Baso % (Auto) 0.1 (0.0-1.5) % Neut # (Auto) 8.2 H (1.4-5.7) K/uL Lymph # (Auto) 0.5 L (0.6-2.4) K/uL [place] # (Auto) 0.5 (0.0-0.8) K/uL Eos # (Auto) 0.0 (0.0-0.7) K/uL Baso # (Auto) 0.0 (0.0-0.1) K/uL Nucleated RBC % 0.0 /100WBC Nucleated RBCs # 0 K/uL Sodium 137 (136-146) mmol/L Potassium 3.2 L (3.5-5.1) mmol/L Chloride 106 (98-110) mmol/L Carbon Dioxide 22 (21-31) mmol/L BUN 10 (6.0-23.0) mg/dL Creatinine 0.7 (0.6-1.5) mg/dL Est Cr Clr Drug Dosing 81.31 mL/min Estimated GFR (MDRD) > 60.0 ml/min Glucose 149 H (60-110) mg/dL POC Glucose 160 H (60-110) mg/dL Calcium 7.2 L (8.8-10.8) mg/dL Magnesium (1.5-2.3) mEq/L 07/15/17 07/15/17 07/15/17 Range/Units 06:09 06:19 11:45 WBC (4.0-11.0) K/uL RBC (4.50-5.90) M/uL Hgb (13.0-17.0) g/dL Hct (38.0-50.0) % MCV (80.0-98.0) fL MCH (27.0-32.0) pg MCHC (31.0-37.0) g/dL RDW Std Deviation (28.0-62.0) fl RDW Coeff of Damion (11.0-15.0) % Plt Count (150-400) K/uL MPV (7.40-12.00) fL Neut % (Auto) (48.0-80.0) % Lymph % (Auto) (16.0-40.0) % [place] % (Auto) (0.0-15.0) % Eos % (Auto) (0.0-7.0) % Baso % (Auto) (0.0-1.5) % Neut # (Auto) (1.4-5.7) K/uL Lymph # (Auto) (0.6-2.4) K/uL [place] # (Auto) (0.0-0.8) K/uL Eos # (Auto) (0.0-0.7) K/uL Baso # (Auto) (0.0-0.1) K/uL Nucleated RBC % /100WBC Nucleated RBCs # K/uL Sodium (136-146) mmol/L Potassium (3.5-5.1) mmol/L Chloride (98-110) mmol/L Carbon Dioxide (21-31) mmol/L BUN (6.0-23.0) mg/dL Creatinine (0.6-1.5) mg/dL Est Cr Clr Drug Dosing mL/min Estimated GFR (MDRD) ml/min Glucose (60-110) mg/dL POC Glucose 126 H 172 H (60-110) mg/dL Calcium (8.8-10.8) mg/dL Magnesium 1.1 L (1.5-2.3) mEq/L Med Orders - Current: Current Medications Enoxaparin Sodium (Lovenox) 30 mg SUBCUT DAILY [facility] Last Admin: 07/15/17 09:23 Dose: 30 mg Sodium Chloride (Normal Saline) 1,000 mls @ 125 mls/hr IV STAT [facility] Last Admin: 07/15/17 09:54 Dose: 125 mls/hr Insulin Aspart (Novolog) 0 unit SUBCUT TIDAC [facility] PRN Reason: Protocol Last Admin: 07/15/17 12:11 Dose: 1 unit Discontinued Medications Furosemide (Lasix) 40 mg IVPUSH NOW ONE Stop: 07/14/17 18:32 Last Admin: 07/14/17 19:52 Dose: 40 mg Magnesium Sulfate 4 gm/ Premix 100 mls @ 50 mls/hr IV ONETIME ONE Stop: 07/15/17 11:58 Last Admin: 07/15/17 10:37 Dose: 50 mls/hr Potassium Chloride (Klor-Con M20) 20 meq PO ONETIME ONE Stop: 07/14/17 18:51 Last Admin: 07/14/17 19:52 Dose: 20 meq Potassium Chloride (Klor-Con M20) 40 meq PO ONETIME ONE Stop: 07/14/17 23:38 Last Admin: 07/15/17 00:35 Dose: 40 meq Potassium Chloride (Klor-Con M20) 40 meq PO ONETIME ONE Stop: 07/15/17 08:24 Last Admin: 07/15/17 09:22 Dose: 40 meq - Exam Quality Assessment: Supplemental Oxygen General: Alert, Oriented Lungs: Clear to Auscultation, Normal Respiratory Effort Cardiovascular: Regular Rate, Regular Rhythm GI/Abdominal Exam: Other (Mild tenderness to palpation in the lower quadrants bilaterally. No shifting dullness and ascites. No rebound tenderness nonrigid abdomen) Extremities: Other (+1 pitting edema bilaterally) Peripheral Pulses: 2+: Dorsalis Pedis (L), Dorsalis Pedis (R) - Problem List Review Problem List Initiated/Reviewed/Updated: Yes - Plan Plan:: Assessment: #1. Cholelithiasis noted on right upper quadrant ultrasound #2. Lower abdominal pain #3. History of type 2 diabetes, CHF, incontinence #4. Hypokalemia #5. Hypomagnesemia Plan: #1. Bladder scan as this could be overflow incontinence causing his lower abdominal pain. #2. Possible cholecystectomy as an outpatient. #3. 40 mg of potassium chloride by mouth 1 #4. 4 g of IV magnesium 1
[2017-07-15] MEDS: glipiZIDE 5 MG Tab.ER PO SCH (20:31)
[2017-07-15] MEDS: Simvastatin 40 MG Tab PO SCH (20:32)
[2017-07-15] MEDS: Ibuprofen 200 MG Tab PO SCH (21:00)
[2017-07-15] MEDS: Acetaminophen 325 MG Tab PO PRN (22:56)
[2017-07-15] MEDS ORDERED: traMADol 50 MG Tab PO PRN (23:17)
[2017-07-16] MEDS: Ibuprofen 200 MG Tab PO SCH ×2 (05:58→14:09)
[2017-07-16 06:30] LABS: CHLORIDE,CL 106 mmol/L (98-110); SODIUM,NA 136 mmol/L (136-146)
[2017-07-16] MEDS: Insulin Aspart 100 Units/ML 3 ML Pen SUBCUT SCH ×5 (06:53→23:55)
[2017-07-16] MEDS ORDERED: Potassium Chloride 20 MEQ Tab.ER PO ONE (07:13)
[2017-07-16] MEDS: Oxybutynin 5 MG Tab PO SCH (08:01)
[2017-07-16] MEDS: Aspirin 325 MG Tab PO SCH (08:01)
[2017-07-16] MEDS: metFORMIN 500 MG Tab PO SCH (08:01)
[2017-07-16] MEDS: Ascorbic Acid 500 MG Tab PO SCH (08:01)
[2017-07-16] MEDS: Vitamin E (dl-alpha-tocopherol acetate) 400 Unit Cap PO SCH (08:01)
[2017-07-16] MEDS: glipiZIDE 5 MG Tab.ER PO SCH (08:02)
[2017-07-16] MEDS: Enoxaparin 30 MG/0.3 ML Syringe SUBCUT SCH (08:02)
[2017-07-16] MEDS ORDERED: Magnesium Sulfate/Water 4 GM in Premix Bag 1 BAG IV ONE (08:43)
--- NOTE | 2017-07-16 08:44 | PCM.PN ---
- Review of Systems Systems Review Comment:: reports pain in mid abdomen last night but has improved this morning. - Patient Data Vitals - Most Recent: Last Vital Signs Temp 37.3 C 07/16/17 05:00 Pulse 77 07/16/17 05:00 Resp 19 07/16/17 05:00 BP 118/53 L 07/16/17 08:01 Pulse Ox 93 L 07/16/17 05:00 Weight - Most Recent: 95.5 kg Med Orders - Current: Current Medications Acetaminophen (Tylenol) 650 mg PO Q6HR PRN PRN Reason: Pain Last Admin: 07/15/17 22:56 Dose: 650 mg Ascorbic Acid (Vitamin C) 500 mg PO DAILY [facility] Last Admin: 07/16/17 08:01 Dose: 500 mg Aspirin (Aspirin) 325 mg PO DAILY [facility] Last Admin: 07/16/17 08:01 Dose: 325 mg Enoxaparin Sodium (Lovenox) 30 mg SUBCUT DAILY [facility] Last Admin: 07/16/17 08:02 Dose: 30 mg Glipizide (Glucotrol Xl) 5 mg PO BID [facility] Last Admin: 07/16/17 08:02 Dose: 5 mg Hydrochlorothiazide (Hydrochlorothiazide) 25 mg PO DAILY [facility] Last Admin: 07/16/17 08:01 Dose: 25 mg Ibuprofen (Motrin) 200 mg PO TID [facility] Last Admin: 07/16/17 05:58 Dose: 200 mg Insulin Aspart (Novolog) 0 unit SUBCUT TIDAC [facility] PRN Reason: Protocol Last Admin: 07/16/17 06:53 Dose: Not Given Losartan Potassium (Cozaar) 25 mg PO DAILY [facility] Last Admin: 07/16/17 08:01 Dose: 25 mg Metformin HCl (Glucophage) 1,000 mg PO DAILY [facility] Last Admin: 07/16/17 08:01 Dose: 1,000 mg Oxybutynin Chloride (Oxybutynin) 5 mg PO DAILY [facility] Last Admin: 07/16/17 08:01 Dose: 5 mg Simvastatin (Zocor) 40 mg PO BEDTIME [facility] Last Admin: 07/15/17 20:32 Dose: 40 mg Tramadol HCl (Ultram) 50 mg PO Q6H PRN PRN Reason: Pain Last Admin: 07/16/17 02:00 Dose: 50 mg Vitamin E (Vitamin E) 400 units PO DAILY [facility] Last Admin: 07/16/17 08:01 Dose: 400 units Discontinued Medications Furosemide (Lasix) 40 mg IVPUSH NOW ONE Stop: 07/14/17 18:32 Last Admin: 07/14/17 19:52 Dose: 40 mg Sodium Chloride (Normal Saline) 1,000 mls @ 125 mls/hr IV STAT [facility] Last Infusion: 07/15/17 19:00 Dose: Infused Magnesium Sulfate 4 gm/ Premix 100 mls @ 50 mls/hr IV ONETIME ONE Stop: 07/15/17 11:58 Last Admin: 07/15/17 10:37 Dose: 50 mls/hr Potassium Chloride (Klor-Con M20) 20 meq PO ONETIME ONE Stop: 07/14/17 18:51 Last Admin: 07/14/17 19:52 Dose: 20 meq Potassium Chloride (Klor-Con M20) 40 meq PO ONETIME ONE Stop: 07/14/17 23:38 Last Admin: 07/15/17 00:35 Dose: 40 meq Potassium Chloride (Klor-Con M20) 40 meq PO ONETIME ONE Stop: 07/15/17 08:24 Last Admin: 07/15/17 09:22 Dose: 40 meq Potassium Chloride (Klor-Con M20) 40 meq PO ONETIME ONE Stop: 07/16/17 07:14 Last Admin: 07/16/17 07:52 Dose: 40 meq - Exam General: Alert, Oriented Lungs: Clear to Auscultation, Normal Respiratory Effort Cardiovascular: Regular Rate, Regular Rhythm GI/Abdominal Exam: Normal Bowel Sounds, Soft, Non-Tender, No Distention. No: Distended, Guarding, Rigid, Rebound Extremities: Non-Tender, No Pedal Edema Skin: Warm, Dry, Intact Neurological: No New Focal Deficit - Problem List Review Problem List Initiated/Reviewed/Updated: Yes - My Orders Last 24 Hours: My Active Orders 07/16/17 08:39 AMYLASE [CHEM] Routine LIPASE [CHEM] Routine - Plan Plan:: 86 yo male who presented with generalized weakness, anorexia, and abdominal pain. Ultrasound of abdomen reported cholelithiasis without evidence of cholecystitis. Due to elevated white count will check CT scan of abdomen. Patient is hypokalemic and hypomagnesia so will replaced electrolytes.
[2017-07-16] MEDS ORDERED: Losartan 50 MG Tab PO SCH (09:00)
[2017-07-16] MEDS ORDERED: Hydrochlorothiazide 25 MG Tab PO SCH (09:00)
[2017-07-16] MEDS ORDERED: Sodium Chloride 0.9% 1,000 ML IV SCH ×2 (11:15→20:00)
[2017-07-16] MEDS: metroNIDAZOLE/Normal Saline 500 MG in Premix Bag 1 BAG IV SCH ×3 (11:18→19:00)
[2017-07-16] MEDS: Levofloxacin/Dextrose 5%-Water 750 MG in Premix Bag 1 BAG IV SCH (12:30)
[2017-07-16] MEDS ORDERED: Sodium Chloride 0.9% 1,000 ML IV ONE (17:17)
--- NOTE | 2017-07-16 18:26 | PCM.SN ---
- Free Text/Narrative Note: Patient reports feeling a lot better, abdomen soft and nontender, CT scan reports diverticulitis. Levaquin and Flagyl have been started. Blood pressure in 80-90s systolic and lactic acid 2.7. Will bolus a liter normal saline, keep NPO, trend lactic acid and hold antihypertensive medications.
[2017-07-16] MEDS: Simvastatin 40 MG Tab PO SCH (20:38)
[2017-07-17] MEDS: metroNIDAZOLE/Normal Saline 500 MG in Premix Bag 1 BAG IV SCH ×4 (00:23→17:04)
[2017-07-17] MEDS: Acetaminophen 325 MG Tab PO PRN (02:43)
[2017-07-17 03:13] LABS: CHLORIDE,CL 110 mmol/L (98-110); SODIUM,NA 138 mmol/L (136-146)
[2017-07-17] MEDS ORDERED: 50% Dextrose in Water 50 ML Syringe IVPUSH ONE ×3 (06:12→17:59)
[2017-07-17] MEDS: Dextrose 5%-0.9% NaCl 1,000 ML IV SCH ×2 (06:27→15:55)
[2017-07-17] MEDS: Insulin Aspart 100 Units/ML 3 ML Pen SUBCUT SCH ×3 (06:39→16:51)
[2017-07-17] MEDS: metFORMIN 500 MG Tab PO SCH (08:29)
[2017-07-17] MEDS: Ascorbic Acid 500 MG Tab PO SCH (08:32)
[2017-07-17] MEDS: Oxybutynin 5 MG Tab PO SCH (08:32)
[2017-07-17] MEDS: Aspirin 325 MG Tab PO SCH (08:32)
[2017-07-17] MEDS: Vitamin E (dl-alpha-tocopherol acetate) 400 Unit Cap PO SCH (08:32)
[2017-07-17] MEDS: Enoxaparin 30 MG/0.3 ML Syringe SUBCUT SCH (08:37)
--- NOTE | 2017-07-17 10:27 | PCM.PN ---
- Review of Systems Systems Review Comment:: patient feeling better, abdominal pain improving. - Patient Data Vitals - Most Recent: Last Vital Signs Temp 36.7 C 07/17/17 08:00 Pulse 87 07/17/17 08:00 Resp 22 H 07/17/17 08:00 BP 125/95 H 07/17/17 08:00 Pulse Ox 92 L 07/17/17 08:00 Weight - Most Recent: 96.5 kg I&O - Last 24 Hours: Intake & Output 07/16/17 07/17/17 07/17/17 22:59 06:59 14:59 Intake Total 1100 1480 100 Output Total 300 Balance 1100 1180 100 Lab Results Last 24 Hours: Laboratory Results - last 24 hr 07/16/17 07/16/17 07/16/17 Range/Units 11:48 15:35 17:55 WBC (4.0-11.0) K/uL RBC (4.50-5.90) M/uL Hgb (13.0-17.0) g/dL Hct (38.0-50.0) % MCV (80.0-98.0) fL MCH (27.0-32.0) pg MCHC (31.0-37.0) g/dL RDW Std Deviation (28.0-62.0) fl RDW Coeff of Damion (11.0-15.0) % Plt Count (150-400) K/uL MPV (7.40-12.00) fL Neut % (Auto) (48.0-80.0) % Lymph % (Auto) (16.0-40.0) % [place] % (Auto) (0.0-15.0) % Eos % (Auto) (0.0-7.0) % Baso % (Auto) (0.0-1.5) % Neut # (Auto) (1.4-5.7) K/uL Lymph # (Auto) (0.6-2.4) K/uL [place] # (Auto) (0.0-0.8) K/uL Eos # (Auto) (0.0-0.7) K/uL Baso # (Auto) (0.0-0.1) K/uL Nucleated RBC % /100WBC Nucleated RBCs # K/uL Lactate 2.7 H (0.20-2.00) mmol/L Sodium (136-146) mmol/L Potassium (3.5-5.1) mmol/L Chloride (98-110) mmol/L Carbon Dioxide (21-31) mmol/L BUN (6.0-23.0) mg/dL Creatinine (0.6-1.5) mg/dL Est Cr Clr Drug Dosing mL/min Estimated GFR (MDRD) ml/min Glucose (60-110) mg/dL POC Glucose 111 H 105 (60-110) mg/dL Calcium (8.8-10.8) mg/dL Magnesium (1.5-2.3) mEq/L 07/16/17 07/16/17 07/17/17 Range/Units 21:02 23:41 02:43 WBC (4.0-11.0) K/uL RBC (4.50-5.90) M/uL Hgb (13.0-17.0) g/dL Hct (38.0-50.0) % MCV (80.0-98.0) fL MCH (27.0-32.0) pg MCHC (31.0-37.0) g/dL RDW Std Deviation (28.0-62.0) fl RDW Coeff of Damion (11.0-15.0) % Plt Count (150-400) K/uL MPV (7.40-12.00) fL Neut % (Auto) (48.0-80.0) % Lymph % (Auto) (16.0-40.0) % [place] % (Auto) (0.0-15.0) % Eos % (Auto) (0.0-7.0) % Baso % (Auto) (0.0-1.5) % Neut # (Auto) (1.4-5.7) K/uL Lymph # (Auto) (0.6-2.4) K/uL [place] # (Auto) (0.0-0.8) K/uL Eos # (Auto) (0.0-0.7) K/uL Baso # (Auto) (0.0-0.1) K/uL Nucleated RBC % /100WBC Nucleated RBCs # K/uL Lactate 1.7 (0.20-2.00) mmol/L Sodium 138 (136-146) mmol/L Potassium 3.5 (3.5-5.1) mmol/L Chloride 110 (98-110) mmol/L Carbon Dioxide 21 (21-31) mmol/L BUN 16 (6.0-23.0) mg/dL Creatinine 0.6 (0.6-1.5) mg/dL Est Cr Clr Drug Dosing 94.86 mL/min Estimated GFR (MDRD) > 60.0 ml/min Glucose 55 L (60-110) mg/dL POC Glucose 89 (60-110) mg/dL Calcium 7.3 L (8.8-10.8) mg/dL Magnesium 1.9 (1.5-2.3) mEq/L 07/17/17 07/17/17 07/17/17 Range/Units 02:43 02:43 06:03 WBC 18.16 H (4.0-11.0) K/uL RBC 3.82 L (4.50-5.90) M/uL Hgb 9.6 L (13.0-17.0) g/dL Hct 30.3 L (38.0-50.0) % MCV 79.3 L (80.0-98.0) fL MCH 25.1 L (27.0-32.0) pg MCHC 31.7 (31.0-37.0) g/dL RDW Std Deviation 44.6 (28.0-62.0) fl RDW Coeff of Damion 15 (11.0-15.0) % Plt Count 242 (150-400) K/uL MPV 8.80 (7.40-12.00) fL Neut % (Auto) 93.5 H (48.0-80.0) % Lymph % (Auto) 5.1 L (16.0-40.0) % [place] % (Auto) 1.3 (0.0-15.0) % Eos % (Auto) 0.0 (0.0-7.0) % Baso % (Auto) 0.1 (0.0-1.5) % Neut # (Auto) 17.0 H (1.4-5.7) K/uL Lymph # (Auto) 0.9 (0.6-2.4) K/uL [place] # (Auto) 0.2 (0.0-0.8) K/uL Eos # (Auto) 0.0 (0.0-0.7) K/uL Baso # (Auto) 0.0 (0.0-0.1) K/uL Nucleated RBC % 0.0 /100WBC Nucleated RBCs # 0 K/uL Lactate 1.2 (0.20-2.00) mmol/L Sodium (136-146) mmol/L Potassium (3.5-5.1) mmol/L Chloride (98-110) mmol/L Carbon Dioxide (21-31) mmol/L BUN (6.0-23.0) mg/dL Creatinine (0.6-1.5) mg/dL Est Cr Clr Drug Dosing mL/min Estimated GFR (MDRD) ml/min Glucose (60-110) mg/dL POC Glucose 55 L (60-110) mg/dL Calcium (8.8-10.8) mg/dL Magnesium (1.5-2.3) mEq/L Med Orders - Current: Current Medications Acetaminophen (Tylenol) 650 mg PO Q6HR PRN PRN Reason: Pain Last Admin: 07/17/17 02:43 Dose: 650 mg Ascorbic Acid (Vitamin C) 500 mg PO DAILY [facility] Last Admin: 07/17/17 08:32 Dose: 500 mg Aspirin (Aspirin) 325 mg PO DAILY [facility] Last Admin: 07/17/17 08:32 Dose: 325 mg Enoxaparin Sodium (Lovenox) 40 mg SUBCUT DAILY [facility] Levofloxacin/Dextrose 750 mg/ (Premix) 150 mls @ 100 mls/hr IV Q24H [facility] Last Admin: 07/16/17 12:30 Dose: 100 mls/hr Metronidazole 500 mg/ Premix 100 mls @ 100 mls/hr IV Q6H [facility] Last Admin: 07/17/17 07:00 Dose: 100 mls/hr Dextrose/Sodium Chloride (Dextrose 5%-Normal Saline) 1,000 mls @ 125 mls/hr IV ASDIRECTED [facility] Last Admin: 07/17/17 06:27 Dose: 125 mls/hr Insulin Aspart (Novolog) 0 unit SUBCUT Q6H [facility] PRN Reason: Protocol Last Admin: 07/17/17 06:39 Dose: Not Given Metformin HCl (Glucophage) 1,000 mg PO DAILY [facility] Last Admin: 07/17/17 08:29 Dose: 1,000 mg Oxybutynin Chloride (Oxybutynin) 5 mg PO DAILY [facility] Last Admin: 07/17/17 08:32 Dose: 5 mg Simvastatin (Zocor) 40 mg PO BEDTIME [facility] Last Admin: 07/16/17 20:38 Dose: 40 mg Tramadol HCl (Ultram) 50 mg PO Q6H PRN PRN Reason: Pain Last Admin: 07/16/17 02:00 Dose: 50 mg Vitamin E (Vitamin E) 400 units PO DAILY [facility] Last Admin: 07/17/17 08:32 Dose: 400 units Discontinued Medications Dextrose/Water (Dextrose 50% In Water) 25 ml IVPUSH ONETIME ONE Stop: 07/17/17 06:13 Last Admin: 07/17/17 06:22 Dose: 25 ml Enoxaparin Sodium (Lovenox) 30 mg SUBCUT DAILY [facility] Last Admin: 07/17/17 08:37 Dose: 30 mg Furosemide (Lasix) 40 mg IVPUSH NOW ONE Stop: 07/14/17 18:32 Last Admin: 07/14/17 19:52 Dose: 40 mg Glipizide (Glucotrol Xl) 5 mg PO BID [facility] Last Admin: 07/16/17 08:02 Dose: 5 mg Hydrochlorothiazide (Hydrochlorothiazide) 25 mg PO DAILY [facility] Last Admin: 07/16/17 08:01 Dose: 25 mg Sodium Chloride (Normal Saline) 1,000 mls @ 125 mls/hr IV STAT [facility] Last Infusion: 07/15/17 19:00 Dose: Infused Magnesium Sulfate 4 gm/ Premix 100 mls @ 50 mls/hr IV ONETIME ONE Stop: 07/15/17 11:58 Last Admin: 07/15/17 10:37 Dose: 50 mls/hr Magnesium Sulfate 4 gm/ Premix 100 mls @ 50 mls/hr IV ONETIME ONE Stop: 07/16/17 10:42 Last Admin: 07/16/17 09:28 Dose: 50 mls/hr Sodium Chloride (Normal Saline) 1,000 mls @ 125 mls/hr IV ASDIRECTED [facility] Last Admin: 07/16/17 12:30 Dose: 75 mls/hr Sodium Chloride (Normal Saline) 1,000 mls @ 1,000 mls/hr IV .Bolus ONE Stop: 07/16/17 18:16 Last Admin: 07/16/17 18:06 Dose: 1,000 mls/hr Sodium Chloride (Normal Saline) 1,000 mls @ 125 mls/hr IV ASDIRECTED [facility] Last Admin: 07/17/17 02:45 Dose: 125 mls/hr Ibuprofen (Motrin) 200 mg PO TID [facility] Last Admin: 07/16/17 14:09 Dose: 200 mg Insulin Aspart (Novolog) 0 unit SUBCUT TIDAC [facility] PRN Reason: Protocol Last Admin: 07/16/17 18:59 Dose: Not Given Losartan Potassium (Cozaar) 25 mg PO DAILY [facility] Last Admin: 07/16/17 08:01 Dose: 25 mg Potassium Chloride (Klor-Con M20) 20 meq PO ONETIME ONE Stop: 07/14/17 18:51 Last Admin: 07/14/17 19:52 Dose: 20 meq Potassium Chloride (Klor-Con M20) 40 meq PO ONETIME ONE Stop: 07/14/17 23:38 Last Admin: 07/15/17 00:35 Dose: 40 meq Potassium Chloride (Klor-Con M20) 40 meq PO ONETIME ONE Stop: 07/15/17 08:24 Last Admin: 07/15/17 09:22 Dose: 40 meq Potassium Chloride (Klor-Con M20) 40 meq PO ONETIME ONE Stop: 07/16/17 07:14 Last Admin: 07/16/17 07:52 Dose: 40 meq - Exam General: Alert, Oriented Lungs: Clear to Auscultation, Normal Respiratory Effort Cardiovascular: Regular Rate, Regular Rhythm GI/Abdominal Exam: Soft, Tender (to deep palpation of lower quadrants). No: Guarding, Rigid, Rebound Extremities: Non-Tender, Pedal Edema (mild pedal edema) - Problem List Review Problem List Initiated/Reviewed/Updated: Yes - My Orders Last 24 Hours: My Active Orders 07/16/17 11:15 Levofloxacin/Dextrose 5%-Water [Levaquin in D5W 750 MG/150 ML] 750 mg Premix Bag 1 bag IV Q24H 07/16/17 12:00 Accu Check [Blood Glucose Check, Bedside] [RC] Q6HR metroNIDAZOLE/Normal Saline [Flagyl 500 MG in NS 100 ML] 500 mg Premix Bag 1 bag IV Q6H 07/16/17 17:30 Insulin Aspart [NovoLOG] See Protocol SUBCUT Q6H 07/16/17 Lunch NPO Now [Nothing per Oral Now Diet] [DIET] 07/17/17 06:15 Dextrose 5%-0.9% NaCl [Dextrose 5%-Normal Saline] 1,000 ml IV ASDIRECTED 07/17/17 10:23 Notify Provider Consults [RC] ASDIRECTED Consult to Physician [CONS] Routine 07/18/17 09:00 Enoxaparin [Lovenox] 40 mg SUBCUT DAILY - Plan Plan:: 86 yo male with diverticulitis. Diverticulitis: leukocytosis of 18,000. Lactic acid normalized. Will continue Flagyl and levaquin. Patient is NPO. Dr. Hull has been consulted.
[2017-07-17] MEDS: Levofloxacin/Dextrose 5%-Water 750 MG in Premix Bag 1 BAG IV SCH (10:35)
--- NOTE | 2017-07-17 11:03 | PCM.CONS ---
H&P History of Present Illness - General Date of Service: 07/17/17 Admit Problem/Dx: Admission Diagnosis/Problem Admission Diagnosis/Problem Weakness Source of Information: Patient History Limitations: Reports: No Limitations - History of Present Illness Initial Comments - Free Text/Narative: Patient is an 86 year old male who presented to the ED night with AMS. He was admitted to the medicine service. He has a PMHx significant for CHF with a 5 vessel bypass and diabetes. He started c/o abdominal pain. He had an abdominal US that showed cholelithiasis with no evidence of cholecystitis and normal LFTs. The pain became more severe and located in the lower abdomen. A CT abdomen/pelvis yesterday morning showed diverticulitis with no evidence of abscess or free air. He was started on Levaquin and flagyl, BP meds were held and he was made NPO. Last evening he became hypotensive and had an elevated lactate at 2.7. He did not require pressors. He was given fluid boluses and his lactate and BP improved. This morning his BP still remains low for him. He has had no fever, chills, nausea or vomiting. He is hungry and would like to eat. He feels like his pain is greatly improved. He has been up ambulating with no difficulty. He denies any change in his bowel habits prior to this. His last colonoscopy was before his bypass. He denies melena or hematochezia. He had a small BM this morning. Abdominal Pain Score (Numeric/FACES): 7 - Related Data Allergies/Adverse Reactions: Allergies Allergy/AdvReac Type Severity Reaction Status Date / Time Penicillins Allergy Hives Verified 07/15/17 06:31 Home Medications: Home Meds Acetaminophen [Tylenol] 650 mg PO Q6HR PRN 06/29/17 [History] Ascorbic Acid [Vitamin C] 500 mg PO DAILY 06/29/17 [History] Aspirin 325 mg PO DAILY 06/29/17 [History] Hydrochlorothiazide 25 mg PO DAILY 06/29/17 [History] Ibuprofen 200 mg PO TID 06/29/17 [History] Losartan [Cozaar] 25 mg PO DAILY 06/29/17 [History] Metoprolol Succinate [Toprol XL] 50 mg PO BID 06/29/17 [History] Oxybutynin 5 mg PO DAILY 06/29/17 [History] Simvastatin [Zocor] 40 mg PO BEDTIME 06/29/17 [History] Vitamin E Mixed [Vitamin E] 250 units PO DAILY 06/29/17 [History] glipiZIDE [Glucotrol XL] 5 mg PO BID 06/29/17 [History] metFORMIN [Glucophage] 1,000 mg PO DAILY 06/29/17 [History] Past Medical History HEENT History: Reports: Cataract Cardiovascular History: Reports: Angina, Arrhythmia, Bypass, CAD, Heart Failure , Heart Murmur, High Cholesterol, Hypertension Respiratory History: Reports: None Gastrointestinal History: Reports: None Genitourinary History: Reports: None Musculoskeletal History: Reports: Arthritis Endocrine/Metabolic History: Reports: Diabetes, Type II Hematologic History: Reports: Anemia - Infectious Disease History Infectious Disease History: Reports: Chicken Pox, Mumps - Past Surgical History Male Surgical History: Reports: Prostatectomy Social & Family History - Family History Family Medical History: Noncontributory - Tobacco Use Smoking Status *Q: Former Smoker Used Tobacco, but Quit: Yes Month Tobacco Last Used: 30 years ago Second Hand Smoke Exposure: No - Caffeine Use Caffeine Use: Reports: Coffee - Recreational Drug Use Recreational Drug Use: No H&P Review of Systems - Review of Systems: Review Of Systems: ROS reveals no pertinent complaints other than HPI. Exam - Exam Exam: See Below - Vital Signs Vital Signs: Last Vital Signs Temp 36.7 C 07/17/17 08:00 Pulse 87 07/17/17 08:00 Resp 22 H 07/17/17 08:00 BP 125/95 H 07/17/17 08:00 Pulse Ox 92 L 07/17/17 08:00 Weight: 96.5 kg - Exam General: Alert, Oriented, Cooperative HEENT: Conjunctiva Clear, Mucosa Moist & [place], Posterior Pharynx Clear Neck: Supple Lungs: Clear to Auscultation, Normal Respiratory Effort Cardiovascular: Regular Rate GI/Abdominal Exam: Other (Non-tender along the lower abomen. Patient having some guarding and pain with palpation in the upper abdomen. He is mildly distended. ) Extremities: Normal Inspection - Patient Data Lab Results Last 24 hrs: Laboratory Results - last 24 hr 07/16/17 07/16/17 07/16/17 Range/Units 11:48 15:35 17:55 WBC (4.0-11.0) K/uL RBC (4.50-5.90) M/uL Hgb (13.0-17.0) g/dL Hct (38.0-50.0) % MCV (80.0-98.0) fL MCH (27.0-32.0) pg MCHC (31.0-37.0) g/dL RDW Std Deviation (28.0-62.0) fl RDW Coeff of Damion (11.0-15.0) % Plt Count (150-400) K/uL MPV (7.40-12.00) fL Neut % (Auto) (48.0-80.0) % Lymph % (Auto) (16.0-40.0) % [place] % (Auto) (0.0-15.0) % Eos % (Auto) (0.0-7.0) % Baso % (Auto) (0.0-1.5) % Neut # (Auto) (1.4-5.7) K/uL Lymph # (Auto) (0.6-2.4) K/uL [place] # (Auto) (0.0-0.8) K/uL Eos # (Auto) (0.0-0.7) K/uL Baso # (Auto) (0.0-0.1) K/uL Nucleated RBC % /100WBC Nucleated RBCs # K/uL Lactate 2.7 H (0.20-2.00) mmol/L Sodium (136-146) mmol/L Potassium (3.5-5.1) mmol/L Chloride (98-110) mmol/L Carbon Dioxide (21-31) mmol/L BUN (6.0-23.0) mg/dL Creatinine (0.6-1.5) mg/dL Est Cr Clr Drug Dosing mL/min Estimated GFR (MDRD) ml/min Glucose (60-110) mg/dL POC Glucose 111 H 105 (60-110) mg/dL Calcium (8.8-10.8) mg/dL Magnesium (1.5-2.3) mEq/L 07/16/17 07/16/17 07/17/17 Range/Units 21:02 23:41 02:43 WBC (4.0-11.0) K/uL RBC (4.50-5.90) M/uL Hgb (13.0-17.0) g/dL Hct (38.0-50.0) % MCV (80.0-98.0) fL MCH (27.0-32.0) pg MCHC (31.0-37.0) g/dL RDW Std Deviation (28.0-62.0) fl RDW Coeff of Damion (11.0-15.0) % Plt Count (150-400) K/uL MPV (7.40-12.00) fL Neut % (Auto) (48.0-80.0) % Lymph % (Auto) (16.0-40.0) % [place] % (Auto) (0.0-15.0) % Eos % (Auto) (0.0-7.0) % Baso % (Auto) (0.0-1.5) % Neut # (Auto) (1.4-5.7) K/uL Lymph # (Auto) (0.6-2.4) K/uL [place] # (Auto) (0.0-0.8) K/uL Eos # (Auto) (0.0-0.7) K/uL Baso # (Auto) (0.0-0.1) K/uL Nucleated RBC % /100WBC Nucleated RBCs # K/uL Lactate 1.7 (0.20-2.00) mmol/L Sodium 138 (136-146) mmol/L Potassium 3.5 (3.5-5.1) mmol/L Chloride 110 (98-110) mmol/L Carbon Dioxide 21 (21-31) mmol/L BUN 16 (6.0-23.0) mg/dL Creatinine 0.6 (0.6-1.5) mg/dL Est Cr Clr Drug Dosing 94.86 mL/min Estimated GFR (MDRD) > 60.0 ml/min Glucose 55 L (60-110) mg/dL POC Glucose 89 (60-110) mg/dL Calcium 7.3 L (8.8-10.8) mg/dL Magnesium 1.9 (1.5-2.3) mEq/L 07/17/17 07/17/17 07/17/17 Range/Units 02:43 02:43 06:03 WBC 18.16 H (4.0-11.0) K/uL RBC 3.82 L (4.50-5.90) M/uL Hgb 9.6 L (13.0-17.0) g/dL Hct 30.3 L (38.0-50.0) % MCV 79.3 L (80.0-98.0) fL MCH 25.1 L (27.0-32.0) pg MCHC 31.7 (31.0-37.0) g/dL RDW Std Deviation 44.6 (28.0-62.0) fl RDW Coeff of Damion 15 (11.0-15.0) % Plt Count 242 (150-400) K/uL MPV 8.80 (7.40-12.00) fL Neut % (Auto) 93.5 H (48.0-80.0) % Lymph % (Auto) 5.1 L (16.0-40.0) % [place] % (Auto) 1.3 (0.0-15.0) % Eos % (Auto) 0.0 (0.0-7.0) % Baso % (Auto) 0.1 (0.0-1.5) % Neut # (Auto) 17.0 H (1.4-5.7) K/uL Lymph # (Auto) 0.9 (0.6-2.4) K/uL [place] # (Auto) 0.2 (0.0-0.8) K/uL Eos # (Auto) 0.0 (0.0-0.7) K/uL Baso # (Auto) 0.0 (0.0-0.1) K/uL Nucleated RBC % 0.0 /100WBC Nucleated RBCs # 0 K/uL Lactate 1.2 (0.20-2.00) mmol/L Sodium (136-146) mmol/L Potassium (3.5-5.1) mmol/L Chloride (98-110) mmol/L Carbon Dioxide (21-31) mmol/L BUN (6.0-23.0) mg/dL Creatinine (0.6-1.5) mg/dL Est Cr Clr Drug Dosing mL/min Estimated GFR (MDRD) ml/min Glucose (60-110) mg/dL POC Glucose 55 L (60-110) mg/dL Calcium (8.8-10.8) mg/dL Magnesium (1.5-2.3) mEq/L Result Diagrams: 07/17/17 02:43 07/17/17 02:43 Consult PN Assessment/Plan Procedures: Procedures ASSAY OF MAGNESIUM (06/29/17) ASSAY OF TROPONIN QUANT (06/29/17) COMPLETE CBC W/AUTO DIFF WBC (06/29/17) COMPREHEN METABOLIC PANEL (06/29/17) CT HEAD/BRAIN W/O DYE (06/29/17) CT NECK SPINE W/O DYE (06/29/17) ELECTROCARDIOGRAM TRACING (06/29/17) EMERGENCY DEPT VISIT (06/29/17) GLUCOSE BLOOD TEST (06/29/17) METABOLIC PANEL TOTAL CA (06/29/17) PROTHROMBIN TIME (06/29/17) PT EVAL LOW COMPLEX 20 MIN (06/29/17) ROUTINE VENIPUNCTURE (06/29/17) URINALYSIS AUTO W/SCOPE (06/29/17) X-RAY EXAM KNEE 4 OR MORE (12/31/14) (1) Diverticulitis SNOMED Code(s): 172005202 Code(s): K57.92 - DVTRCLI OF INTEST, PART UNSP, W/O PERF OR ABSCESS W/O BLEED Current Visit: Yes Problem List Initiated/Reviewed/Updated: Yes My Orders Last 24 Hours: My Active Orders 07/17/17 10:55 Abdomen 1V Upright [CR] Urgent Plan: The patient and I discussed the pathophysiology of diverticulosis and diverticulitis. I explained the treatment which includes conservative and surgical management when conservative management fails. I am encouraged that he is feeling better and that his BP and lactate have improved. However, his abdominal exam and elevated WBC is concerning. I am going to get an abdominal XRAY. If this shows free air he needs to be transfered to [place] for surgical and ICU management given his medical co-morbidities. He needs to stay NPO. Continue IVF and IV antibiotics. I will do serial abdominal exams. Recheck lactate and CBC this evening. If his WBC continues to be elevated, his lactate increases, he becomes hypotensive again, or his abdominal exam worsens he needs to be transferred for further cares. He verbalized understanding.
--- NOTE | 2017-07-17 17:04 | PCM.SN ---
- Free Text/Narrative Note: Patient has had no acute changes this afternoon. Subjectively he feels the same. His vitals have remained stable. He has had no fever. On recheck his lactate is 1.6 from 1.2. His WBC is 16K down from 18K, but his left shift is slightly higher at 97%. On exam he is moderately distended and has generalized rebound. Given his medical issues and that his abdominal exam has not improved, he should be transferred to a larger facility for further cares. His abdominal exam is worrisome and he may require surgery. If he does he will need to be cared for in an ICU afterwards. I discussed this with the patient. He verbalized understanding.
--- NOTE | 2017-07-17 18:16 | PCM.DCSUM1 ---
Discharge Summary - Discharge Data Discharge Date: 07/17/17 Discharge Disposition: DC/Tfer to Acute Hospital 02 Condition: Good - Patient Summary/Data Consults: Consultations 07/17/17 10:23 Consult to Physician [CONS] Routine Hospital Course: Admission diagnosis Generalized weakness Anorexia Dehydration possible gastroenteritis Discharge diagnosis Acute Diverticulitis Secondary diagnosis Hypokalemia Hypomagnesia Hypoglycemia History of CAD,CHF,DM, HTN Hospital Course: 86 yo male with pmh of DM, CAD, CHF who presents with generalized weakness. EMS was called by friend and patient was found locked in his house. He was incontinent of urine and unable to ambulate. Patient reports he has not been eating well the past few weeks and such became weak and unable to get around the house. Patient reported mild epigastric pain. He was admitted for dehydration, and generalized weakness thought to be due to gastroenteritis. He was given IV fluids. Abdominal ultrasound reported cholilithiasis without evidence of cholecystitis. CT scan of abdomen was obtained when his white count increased to 16,900. He was discovered to have sigmoid diverticulitis with possible tiny extra luminal gas and fluid collection measuring 2cm by 1.2 cm by 1.2 cm. He was treated with Levaquin and Flagyl and made NPO. Patient did reported improvement in his abdominal pain. His blood pressure yesterday was in the 90s-80s systolically. He was given fluid boluses and his antihypertensive medications were discontinued. His blood pressure today is stable at 120s systolic. His lactic acid of 2.7 yesterday has normalized today. He has been placed on D5 Normal saline due to low blood sugars. Dr. Hull was consulted and recommended transfer of patient as if he were to worsen clinically he may need to have surgery. I called [facility] and spoke with Dr. Keller who has accepted the patient. Ground transportation is being arranged. - Discharge Plan Home Medications: Home Meds Acetaminophen [Tylenol] 650 mg PO Q6HR PRN 06/29/17 [History] Ascorbic Acid [Vitamin C] 500 mg PO DAILY 06/29/17 [History] Aspirin 325 mg PO DAILY 06/29/17 [History] Hydrochlorothiazide 25 mg PO DAILY 06/29/17 [History] Ibuprofen 200 mg PO TID 06/29/17 [History] Losartan [Cozaar] 25 mg PO DAILY 06/29/17 [History] Metoprolol Succinate [Toprol XL] 50 mg PO BID 06/29/17 [History] Oxybutynin 5 mg PO DAILY 06/29/17 [History] Simvastatin [Zocor] 40 mg PO BEDTIME 06/29/17 [History] Vitamin E Mixed [Vitamin E] 250 units PO DAILY 06/29/17 [History] glipiZIDE [Glucotrol XL] 5 mg PO BID 06/29/17 [History] metFORMIN [Glucophage] 1,000 mg PO DAILY 06/29/17 [History] Forms: ED Department Discharge Referrals: PCP,Unknown [Primary Care Provider] - - Patient Data Vitals - Most Recent: Last Vital Signs Temp 37.0 C 07/17/17 16:00 Pulse 102 H 07/17/17 16:00 Resp 20 07/17/17 16:00 BP 122/71 07/17/17 16:00 Pulse Ox 90 L 07/17/17 16:00 Weight - Most Recent: 96.5 kg I&O - Last 24 hours: Intake & Output 07/17/17 07/17/17 07/17/17 06:59 14:59 22:59 Intake Total 0848 320 3758 Output Total 300 200 Balance 0054 444 3771 Lab Results - Last 24 hrs: Laboratory Results - last 24 hr 07/16/17 07/16/17 07/17/17 Range/Units 21:02 23:41 02:43 WBC (4.0-11.0) K/uL RBC (4.50-5.90) M/uL Hgb (13.0-17.0) g/dL Hct (38.0-50.0) % MCV (80.0-98.0) fL MCH (27.0-32.0) pg MCHC (31.0-37.0) g/dL RDW Std Deviation (28.0-62.0) fl RDW Coeff of Damion (11.0-15.0) % Plt Count (150-400) K/uL MPV (7.40-12.00) fL Neut % (Auto) (48.0-80.0) % Lymph % (Auto) (16.0-40.0) % [place] % (Auto) (0.0-15.0) % Eos % (Auto) (0.0-7.0) % Baso % (Auto) (0.0-1.5) % Neut # (Auto) (1.4-5.7) K/uL Lymph # (Auto) (0.6-2.4) K/uL [place] # (Auto) (0.0-0.8) K/uL Eos # (Auto) (0.0-0.7) K/uL Baso # (Auto) (0.0-0.1) K/uL Nucleated RBC % /100WBC Nucleated RBCs # K/uL Lactate 1.7 (0.20-2.00) mmol/L Sodium 138 (136-146) mmol/L Potassium 3.5 (3.5-5.1) mmol/L Chloride 110 (98-110) mmol/L Carbon Dioxide 21 (21-31) mmol/L BUN 16 (6.0-23.0) mg/dL Creatinine 0.6 (0.6-1.5) mg/dL Est Cr Clr Drug Dosing 94.86 mL/min Estimated GFR (MDRD) > 60.0 ml/min Glucose 55 L (60-110) mg/dL POC Glucose 89 (60-110) mg/dL Calcium 7.3 L (8.8-10.8) mg/dL Magnesium 1.9 (1.5-2.3) mEq/L 07/17/17 07/17/17 07/17/17 Range/Units 02:43 02:43 06:03 WBC 18.16 H (4.0-11.0) K/uL RBC 3.82 L (4.50-5.90) M/uL Hgb 9.6 L (13.0-17.0) g/dL Hct 30.3 L (38.0-50.0) % MCV 79.3 L (80.0-98.0) fL MCH 25.1 L (27.0-32.0) pg MCHC 31.7 (31.0-37.0) g/dL RDW Std Deviation 44.6 (28.0-62.0) fl RDW Coeff of Damion 15 (11.0-15.0) % Plt Count 242 (150-400) K/uL MPV 8.80 (7.40-12.00) fL Neut % (Auto) 93.5 H (48.0-80.0) % Lymph % (Auto) 5.1 L (16.0-40.0) % [place] % (Auto) 1.3 (0.0-15.0) % Eos % (Auto) 0.0 (0.0-7.0) % Baso % (Auto) 0.1 (0.0-1.5) % Neut # (Auto) 17.0 H (1.4-5.7) K/uL Lymph # (Auto) 0.9 (0.6-2.4) K/uL [place] # (Auto) 0.2 (0.0-0.8) K/uL Eos # (Auto) 0.0 (0.0-0.7) K/uL Baso # (Auto) 0.0 (0.0-0.1) K/uL Nucleated RBC % 0.0 /100WBC Nucleated RBCs # 0 K/uL Lactate 1.2 (0.20-2.00) mmol/L Sodium (136-146) mmol/L Potassium (3.5-5.1) mmol/L Chloride (98-110) mmol/L Carbon Dioxide (21-31) mmol/L BUN (6.0-23.0) mg/dL Creatinine (0.6-1.5) mg/dL Est Cr Clr Drug Dosing mL/min Estimated GFR (MDRD) ml/min Glucose (60-110) mg/dL POC Glucose 55 L (60-110) mg/dL Calcium (8.8-10.8) mg/dL Magnesium (1.5-2.3) mEq/L 07/17/17 07/17/17 07/17/17 Range/Units 10:59 15:52 15:52 WBC 16.01 H (4.0-11.0) K/uL RBC 4.01 L (4.50-5.90) M/uL Hgb 10.3 L (13.0-17.0) g/dL Hct 31.9 L (38.0-50.0) % MCV 79.6 L (80.0-98.0) fL MCH 25.7 L (27.0-32.0) pg MCHC 32.3 (31.0-37.0) g/dL RDW Std Deviation 45.1 (28.0-62.0) fl RDW Coeff of Damion 15 (11.0-15.0) % Plt Count 282 (150-400) K/uL MPV 9.00 (7.40-12.00) fL Neut % (Auto) 97.0 H (48.0-80.0) % Lymph % (Auto) 2.3 L (16.0-40.0) % [place] % (Auto) 0.7 (0.0-15.0) % Eos % (Auto) 0.0 (0.0-7.0) % Baso % (Auto) 0.0 (0.0-1.5) % Neut # (Auto) 15.5 H (1.4-5.7) K/uL Lymph # (Auto) 0.4 L (0.6-2.4) K/uL [place] # (Auto) 0.1 (0.0-0.8) K/uL Eos # (Auto) 0.0 (0.0-0.7) K/uL Baso # (Auto) 0.0 (0.0-0.1) K/uL Nucleated RBC % 0.0 /100WBC Nucleated RBCs # 0 K/uL Lactate 1.6 (0.20-2.00) mmol/L Sodium (136-146) mmol/L Potassium (3.5-5.1) mmol/L Chloride (98-110) mmol/L Carbon Dioxide (21-31) mmol/L BUN (6.0-23.0) mg/dL Creatinine (0.6-1.5) mg/dL Est Cr Clr Drug Dosing mL/min Estimated GFR (MDRD) ml/min Glucose (60-110) mg/dL POC Glucose 79 (60-110) mg/dL Calcium (8.8-10.8) mg/dL Magnesium (1.5-2.3) mEq/L 07/17/17 07/17/17 07/17/17 Range/Units 16:50 17:09 17:58 WBC (4.0-11.0) K/uL RBC (4.50-5.90) M/uL Hgb (13.0-17.0) g/dL Hct (38.0-50.0) % MCV (80.0-98.0) fL MCH (27.0-32.0) pg MCHC (31.0-37.0) g/dL RDW Std Deviation (28.0-62.0) fl RDW Coeff of Damion (11.0-15.0) % Plt Count (150-400) K/uL MPV (7.40-12.00) fL Neut % (Auto) (48.0-80.0) % Lymph % (Auto) (16.0-40.0) % [place] % (Auto) (0.0-15.0) % Eos % (Auto) (0.0-7.0) % Baso % (Auto) (0.0-1.5) % Neut # (Auto) (1.4-5.7) K/uL Lymph # (Auto) (0.6-2.4) K/uL [place] # (Auto) (0.0-0.8) K/uL Eos # (Auto) (0.0-0.7) K/uL Baso # (Auto) (0.0-0.1) K/uL Nucleated RBC % /100WBC Nucleated RBCs # K/uL Lactate (0.20-2.00) mmol/L Sodium (136-146) mmol/L Potassium (3.5-5.1) mmol/L Chloride (98-110) mmol/L Carbon Dioxide (21-31) mmol/L BUN (6.0-23.0) mg/dL Creatinine (0.6-1.5) mg/dL Est Cr Clr Drug Dosing mL/min Estimated GFR (MDRD) ml/min Glucose (60-110) mg/dL POC Glucose 43 L 66 51 L (60-110) mg/dL Calcium (8.8-10.8) mg/dL Magnesium (1.5-2.3) mEq/L Med Orders - Current: Current Medications Acetaminophen (Tylenol) 650 mg PO Q6HR PRN PRN Reason: Pain Last Admin: 07/17/17 02:43 Dose: 650 mg Ascorbic Acid (Vitamin C) 500 mg PO DAILY [facility] Last Admin: 07/17/17 08:32 Dose: 500 mg Aspirin (Aspirin) 325 mg PO DAILY [facility] Last Admin: 07/17/17 08:32 Dose: 325 mg Enoxaparin Sodium (Lovenox) 40 mg SUBCUT DAILY [facility] Levofloxacin/Dextrose 750 mg/ (Premix) 150 mls @ 100 mls/hr IV Q24H [facility] Last Admin: 07/17/17 10:35 Dose: 100 mls/hr Metronidazole 500 mg/ Premix 100 mls @ 100 mls/hr IV Q6H [facility] Last Admin: 07/17/17 17:04 Dose: 100 mls/hr Dextrose/Sodium Chloride (Dextrose 5%-Normal Saline) 1,000 mls @ 125 mls/hr IV ASDIRECTED [facility] Last Admin: 07/17/17 15:55 Dose: 125 mls/hr Insulin Aspart (Novolog) 0 unit SUBCUT Q6H [facility] PRN Reason: Protocol Last Admin: 07/17/17 16:51 Dose: Not Given Metformin HCl (Glucophage) 1,000 mg PO DAILY [facility] Last Admin: 07/17/17 08:29 Dose: 1,000 mg Oxybutynin Chloride (Oxybutynin) 5 mg PO DAILY [facility] Last Admin: 07/17/17 08:32 Dose: 5 mg Simvastatin (Zocor) 40 mg PO BEDTIME [facility] Last Admin: 07/16/17 20:38 Dose: 40 mg Tramadol HCl (Ultram) 50 mg PO Q6H PRN PRN Reason: Pain Last Admin: 07/16/17 02:00 Dose: 50 mg Vitamin E (Vitamin E) 400 units PO DAILY [facility] Last Admin: 07/17/17 08:32 Dose: 400 units Discontinued Medications Dextrose/Water (Dextrose 50% In Water) 25 ml IVPUSH ONETIME ONE Stop: 07/17/17 06:13 Last Admin: 07/17/17 06:22 Dose: 25 ml Dextrose/Water (Dextrose 50% In Water) 25 ml IVPUSH ONETIME ONE Stop: 07/17/17 16:53 Last Admin: 07/17/17 16:59 Dose: 25 ml Dextrose/Water (Dextrose 50% In Water) 50 ml IVPUSH ONETIME ONE Stop: 07/17/17 18:00 Last Admin: 07/17/17 18:05 Dose: 50 ml Enoxaparin Sodium (Lovenox) 30 mg SUBCUT DAILY [facility] Last Admin: 07/17/17 08:37 Dose: 30 mg Furosemide (Lasix) 40 mg IVPUSH NOW ONE Stop: 07/14/17 18:32 Last Admin: 07/14/17 19:52 Dose: 40 mg Glipizide (Glucotrol Xl) 5 mg PO BID [facility] Last Admin: 07/16/17 08:02 Dose: 5 mg Hydrochlorothiazide (Hydrochlorothiazide) 25 mg PO DAILY [facility] Last Admin: 07/16/17 08:01 Dose: 25 mg Sodium Chloride (Normal Saline) 1,000 mls @ 125 mls/hr IV STAT [facility] Last Infusion: 07/15/17 19:00 Dose: Infused Magnesium Sulfate 4 gm/ Premix 100 mls @ 50 mls/hr IV ONETIME ONE Stop: 07/15/17 11:58 Last Admin: 07/15/17 10:37 Dose: 50 mls/hr Magnesium Sulfate 4 gm/ Premix 100 mls @ 50 mls/hr IV ONETIME ONE Stop: 07/16/17 10:42 Last Admin: 07/16/17 09:28 Dose: 50 mls/hr Sodium Chloride (Normal Saline) 1,000 mls @ 125 mls/hr IV ASDIRECTED [facility] Last Admin: 07/16/17 12:30 Dose: 75 mls/hr Sodium Chloride (Normal Saline) 1,000 mls @ 1,000 mls/hr IV .Bolus ONE Stop: 07/16/17 18:16 Last Admin: 07/16/17 18:06 Dose: 1,000 mls/hr Sodium Chloride (Normal Saline) 1,000 mls @ 125 mls/hr IV ASDIRECTED [facility] Last Admin: 07/17/17 02:45 Dose: 125 mls/hr Ibuprofen (Motrin) 200 mg PO TID [facility] Last Admin: 07/16/17 14:09 Dose: 200 mg Insulin Aspart (Novolog) 0 unit SUBCUT TIDAC [facility] PRN Reason: Protocol Last Admin: 07/16/17 18:59 Dose: Not Given Losartan Potassium (Cozaar) 25 mg PO DAILY [facility] Last Admin: 07/16/17 08:01 Dose: 25 mg Potassium Chloride (Klor-Con M20) 20 meq PO ONETIME ONE Stop: 07/14/17 18:51 Last Admin: 07/14/17 19:52 Dose: 20 meq Potassium Chloride (Klor-Con M20) 40 meq PO ONETIME ONE Stop: 07/14/17 23:38 Last Admin: 07/15/17 00:35 Dose: 40 meq Potassium Chloride (Klor-Con M20) 40 meq PO ONETIME ONE Stop: 07/15/17 08:24 Last Admin: 07/15/17 09:22 Dose: 40 meq Potassium Chloride (Klor-Con M20) 40 meq PO ONETIME ONE Stop: 07/16/17 07:14 Last Admin: 07/16/17 07:52 Dose: 40 meq *Q Meaningful Use (DIS) - VTE *Q VTE Criteria *Q: - Stroke *Q Stroke Criteria *Q: - AMI *Q AMI Criteria *Q:
[2017-07-18] MEDS ORDERED: Enoxaparin 40 MG/0.4 ML Syringe SUBCUT SCH (09:00)
--- NOTE | 2017-07-18 11:19 | CT ---
EXAM DATE: 07/16/17 PATIENT'S AGE: 86 Patient: MANUEL GOODMAN Facility: [facility], [place], [place] : 1930 Study: CT Abdomen/Pelvis [id number]/18/2017 9:04:53 AM Ordering Physician: Galileo Connelly Final Report: Acute abdominal pain Technique: Noncontrast CT abdomen and pelvis with coronal sagittal reformatted images obtained. Comparison: No comparison Studies are available. Findings : Heart size normal. Bilateral small pleural effusions. Basilar atelectasis/ consolidation. The unenhanced liver, pancreas, adrenal glands, spleen appears unremarkable. Small hiatal hernia. Small amount of perihepatic ascites. There is a possible tiny nonobstructing left mid renal calculus or vascular calcification. No hydronephrosis. Too small to characterize low-density lesion with probable layering calcifications in the right inferior pole. Urinary bladder is unremarkable. Prostate gland mildly prominent. Diverticulosis with perisigmoid inflammatory change and fluid. No bowel obstruction. Possible tiny extraluminal gas and fluid collection measuring 2.0 x 1.2 centimeters anterior sigmoid colon on series 201, image 85, coronal image 60. Mild aneurysmal dilatation of the infrarenal abdominal aorta measuring 2.9 cm just before the aortic bifurcation. Mild amount of fluid in the pelvis. Impression: 1. Sigmoid diverticulitis. Possible tiny extra luminal gas and fluid collection measuring 2 cm x 1.2 cm x1.2 cm anterior to the sigmoid colon. No bowel obstruction . Recommemd follow up. 2. Mild aneurysmal dilatation of the infrarenal abdominal aorta measuring 2.9 cm. 3. Cholelithiasis. Please note that all CT scans at this facility use dose modulation, iterative reconstruction, and/or weight-based dosing when appropriate to reduce radiation dose to as low as reasonably achievable. Dictated by Evelin Harp MD @ Jul 16 2017 9:33AM (Electronic Signature) Report Signed by Proxy. GATITO
--- NOTE | 2017-07-18 15:59 | CR ---
EXAM DATE: 07/16/17 PATIENT'S AGE: 86 Patient: MANUEL GOODMAN Facility: [place], [place] Site . Site : 1930 Study: XRay Abdomen [id number]/19/2017 11:38:48 AM Ordering Physician: Galileo Connelly Final Report: HISTORY: Abdominal pain. TECHNIQUE: One view of the abdomen upright. COMPARISON: CT 07/16/2017. FINDINGS: The [id number] includes the upper abdomen. No free air. Gas present within stomach and nondilated colon. No dilated bowel loops seen within the upper-most abdomen. Changes of prior sternotomy. Small pleural effusion on the left is unchanged. No change in mild left basilar atelectasis. Trace amount of right pleural fluid as before. IMPRESSION: No free air. No dilated bowel loops within the upper most abdomen. Dictated by Winston Caballero MD @ 07/17/2017 12:01:02 PM Dictated by: Winston Caballero MD @ 07/17/2017 12:01:07 (Electronic Signature) Report Signed by Proxy. [facility] SYSTEMIsmael
== END 2017-07-17 18:45 | DRG 392 ==
LOC: MW.ED 17:35 → MW.MS 20:54 → OBSVTOIN 07-16 08:22
PROVIDERS: ADMIT Internal Medicine; ATTEND Internal Medicine
DX: K57.32 Diverticulitis of large intestine without perforation or abscess without bleeding (principal); R60.9 Edema, unspecified; E87.6 Hypokalemia; E83.42 Hypomagnesemia; E86.0 Dehydration; E78.00 Pure hypercholesterolemia, unspecified; I10 Essential (primary) hypertension; E11.9 Type 2 diabetes mellitus without complications; E11.649 Type 2 diabetes mellitus with hypoglycemia without coma; R53.1 Weakness; R32 Unspecified urinary incontinence; I25.10 Atherosclerotic heart disease of native coronary artery without angina pectoris; I50.9 Heart failure, unspecified; Z95.1 Presence of aortocoronary bypass graft; Z79.899 Other long term (current) drug therapy; Z88.0 Allergy status to penicillin; Z87.891 Personal history of nicotine dependence
CPT/HCPCS: 36415 ×3; 70450; 71010; 74000; 74176; 76700; 80048 ×2; 80053; 80076; 81001; 82150; 82550; 82553; 82962 ×5; 83690; 83735 ×2; 83880; 84484; 85025 ×3; 85610; 96361; 96374; 97161; 99285; A9270 ×18; J1650 ×2; J1815; J1940; J3475; J7040 ×3; 51798; 83605; 96372; 96375; 99283; G0378; J1956; J7042; J7060

== ENCOUNTER 2017-07-21 19:50 | Inpatient (IN) | payer MEDICARE, BC, OTHER ==
[2017-07-21] MEDS ORDERED: Sodium Chloride 0.9% 10 ML Syringe FLUSH PRN ×2 (19:52→23:11)
[2017-07-21] MEDS ORDERED: Sodium Chloride 0.9% 2.5 ML Syringe FLUSH PRN ×2 (19:52→23:11)
[2017-07-21] MEDS ORDERED: Sodium Chloride 0.9% 1,000 ML IV SCH (20:00)
--- NOTE | 2017-07-21 20:00 | EDM.PDOC ---
ED HPI GENERAL MEDICAL PROBLEM - General Stated Complaint: WEAKNESS Time Seen by Provider: 07/21/17 19:51 - History of Present Illness INITIAL COMMENTS - FREE TEXT/NARRATIVE: HISTORY AND PHYSICAL: History of present illness: Patient is an 86-year-old white male with medical problems who claims he was just discharged from [facility] afternoon treated for diverticulitis and is here now from home brought by friend in private vehicle patient states he's had generalized weakness and was told that he needed to be hospitalized for several days to get his strength back he denies chest pain nausea vomiting fever chills or other concern apart from generalized weakness I did discuss case with hospitalist at [facility] regarding patient's care who did confirm he was admitted there and treated conservatively and successfully for diverticulitis with parenteral antibiotics he's white count normalized and he was getting physical therapy and good from their standpoint for discharge to home oncology social work from there was working with local oncology social work here to coordinate home health care and that's the last that the hospitalist This case. There apparently was some concern from the daughter regarding the patient's ability at home to care for himself. Review of systems: As per history of present illness and below otherwise all systems reviewed and negative. Past medical history: As per history of present illness and as reviewed below otherwise noncontributory. Surgical history: As per history of present illness and as reviewed below otherwise noncontributory. Social history: No reported history of drug or alcohol abuse. Family history: As per history of present illness and as reviewed below otherwise noncontributory. Physical exam: HEENT: Atraumatic, normocephalic, pupils reactive, negative for conjunctival pallor or scleral icterus, mucous membranes moist, throat clear, neck supple, nontender, trachea midline. Lungs: Clear to auscultation, breath sounds equal bilaterally, chest nontender. Heart: S1S2, regular, negative for clicks, rubs, or JVD. Abdomen: Soft, nondistended, nontender. Negative for masses or hepatosplenomegaly. Negative for costovertebral tenderness. Pelvis: Stable nontender. Genitourinary: Deferred. Rectal: Deferred. Extremities: Atraumatic, negative for cords or calf pain. Neurovascular unremarkable. Neuro: Awake, alert, oriented. Follows commands moves all extremities Diagnostics: CBC CMP troponin PT/INR UA urine culture blood culture 2 elect casted chest x- ray CT brain EKG Therapeutics: IV O2 monitor Impression: #1 Generalized weakness Definitive disposition and diagnosis as appropriate pending reevaluation and review of above. - Related Data Allergies Allergy/AdvReac Type Severity Reaction Status Date / Time Penicillins Allergy Hives Verified 07/21/17 20:04 Home Meds: Home Meds Acetaminophen [Tylenol] 650 mg PO Q6HR PRN 06/29/17 [History] Ascorbic Acid [Vitamin C] 500 mg PO DAILY 06/29/17 [History] Aspirin 325 mg PO DAILY 06/29/17 [History] Hydrochlorothiazide 25 mg PO DAILY 06/29/17 [History] Ibuprofen 200 mg PO TID 06/29/17 [History] Losartan [Cozaar] 25 mg PO DAILY 06/29/17 [History] Metoprolol Succinate [Toprol XL] 50 mg PO BID 06/29/17 [History] Oxybutynin 5 mg PO DAILY 06/29/17 [History] Simvastatin [Zocor] 40 mg PO BEDTIME 06/29/17 [History] Vitamin E Mixed [Vitamin E] 250 units PO DAILY 06/29/17 [History] glipiZIDE [Glucotrol XL] 5 mg PO BID 06/29/17 [History] metFORMIN [Glucophage] 1,000 mg PO DAILY 06/29/17 [History] Past Medical History HEENT History: Reports: Cataract Cardiovascular History: Reports: Angina, Arrhythmia, Bypass, CAD, Heart Failure , Heart Murmur, High Cholesterol, Hypertension Respiratory History: Reports: None Gastrointestinal History: Reports: None Genitourinary History: Reports: None Musculoskeletal History: Reports: Arthritis Endocrine/Metabolic History: Reports: Diabetes, Type II Hematologic History: Reports: Anemia - Infectious Disease History Infectious Disease History: Reports: Chicken Pox, Mumps - Past Surgical History Male Surgical History: Reports: Prostatectomy Social & Family History - Family History Family Medical History: Noncontributory - Tobacco Use Smoking Status *Q: Former Smoker Used Tobacco, but Quit: Yes Month Tobacco Last Used: 30 years ago Second Hand Smoke Exposure: No - Caffeine Use Caffeine Use: Reports: Coffee - Recreational Drug Use Recreational Drug Use: No ED ROS GENERAL - Review of Systems Review Of Systems: ROS reveals no pertinent complaints other than HPI. ED EXAM, GENERAL - Physical Exam Exam: See Below (See dictation) Course - Vital Signs Last Recorded V/S: Last Vital Signs Temp 36.4 C 07/21/17 19:50 Pulse 95 07/21/17 20:32 Resp 18 07/21/17 20:32 BP 133/72 07/21/17 19:50 Pulse Ox 95 07/21/17 20:32 - Orders/Labs/Meds Orders: Active Orders 24 hr Category Date Time Status Cardiac Monitoring [RC] . DIRECTED Care 07/21/17 19:52 Active EKG Documentation Completion [RC] STAT Care 07/21/17 19:52 Active Pulse Oximetry [RC] ASDIRECTED Care 07/21/17 19:52 Active Chest 1V Frontal [CR] Stat Exams 07/21/17 19:52 Taken Head wo Cont [CT] Stat Exams 07/21/17 19:52 Taken CULTURE BLOOD [BC] Stat Lab 07/21/17 20:05 Results CULTURE BLOOD [BC] Stat Lab 07/21/17 20:18 Received CULTURE URINE [RM] Stat Lab 07/21/17 19:52 Uncollected UA W/MICROSCOPIC [URIN] Stat Lab 07/21/17 19:52 Uncollected Sodium Chloride 0.9% [Normal Saline] 1,000 ml Med 07/21/17 20:00 Active IV STAT Sodium Chloride 0.9% [Saline Flush] Med 07/21/17 19:52 Active 10 ml FLUSH ASDIRECTED PRN Sodium Chloride 0.9% [Saline Flush] Med 07/21/17 19:52 Active 2.5 ml FLUSH ASDIRECTED PRN Blood Culture x2 Reflex Set [OM.PC] Stat Oth 07/21/17 19:52 Ordered Saline Lock Insert [OM.PC] Stat Oth 07/21/17 19:52 Ordered Medication Orders Sodium Chloride (Normal Saline) 1,000 mls @ 125 mls/hr IV STAT NADINE Last Admin: 07/21/17 20:08 Dose: 125 mls/hr Sodium Chloride (Saline Flush) 10 ml FLUSH ASDIRECTED PRN PRN Reason: Keep Vein Open Last Admin: 07/21/17 20:07 Dose: 10 ml Sodium Chloride (Saline Flush) 2.5 ml FLUSH ASDIRECTED PRN PRN Reason: Keep Vein Open Last Admin: 07/21/17 20:07 Dose: 2.5 ml Labs: Laboratory Tests 07/21/17 07/21/17 07/21/17 Range/Units 20:05 20:05 20:05 WBC 8.92 (4.0-11.0) K/uL RBC 4.19 L (4.50-5.90) M/uL Hgb 10.5 L (13.0-17.0) g/dL Hct 32.9 L (38.0-50.0) % MCV 78.5 L (80.0-98.0) fL MCH 25.1 L (27.0-32.0) pg MCHC 31.9 (31.0-37.0) g/dL RDW Std Deviation 46.5 (28.0-62.0) fl RDW Coeff of Damion 16 H (11.0-15.0) % Plt Count 309 (150-400) K/uL MPV 9.30 (7.40-12.00) fL Neut % (Auto) 78.5 (48.0-80.0) % Lymph % (Auto) 14.9 L (16.0-40.0) % Laurens % (Auto) 5.7 (0.0-15.0) % Eos % (Auto) 0.9 (0.0-7.0) % Baso % (Auto) 0.0 (0.0-1.5) % Neut # (Auto) 7.0 H (1.4-5.7) K/uL Lymph # (Auto) 1.3 (0.6-2.4) K/uL Laurens # (Auto) 0.5 (0.0-0.8) K/uL Eos # (Auto) 0.1 (0.0-0.7) K/uL Baso # (Auto) 0.0 (0.0-0.1) K/uL Nucleated RBC % 0.0 /100WBC Nucleated RBCs # 0 K/uL INR 1.76 H (0.86-1.11) Lactate 1.8 (0.20-2.00) mmol/L Sodium (136-146) mmol/L Potassium (3.5-5.1) mmol/L Chloride (98-110) mmol/L Carbon Dioxide (21-31) mmol/L BUN (6.0-23.0) mg/dL Creatinine (0.6-1.5) mg/dL Est Cr Clr Drug Dosing Estimated GFR (MDRD) ml/min Glucose (60-110) mg/dL POC Glucose (60-110) mg/dL Calcium (8.8-10.8) mg/dL Total Bilirubin (0.1-1.5) mg/dL AST (5-40) IU/L ALT (8-54) IU/L Alkaline Phosphatase (40-150) Ammonia (14-68) UG/DL Troponin I (0.0-0.29) NG/ML B-Natriuretic Peptide (<100) PG/ML Total Protein (6.0-8.0) g/dL Albumin (3.4-4.8) g/dL Globulin (2.0-3.5) g/dL Albumin/Globulin Ratio (1.3-2.8) 07/21/17 07/21/17 07/21/17 Range/Units 20:05 20:05 20:05 WBC (4.0-11.0) K/uL RBC (4.50-5.90) M/uL Hgb (13.0-17.0) g/dL Hct (38.0-50.0) % MCV (80.0-98.0) fL MCH (27.0-32.0) pg MCHC (31.0-37.0) g/dL RDW Std Deviation (28.0-62.0) fl RDW Coeff of Damion (11.0-15.0) % Plt Count (150-400) K/uL MPV (7.40-12.00) fL Neut % (Auto) (48.0-80.0) % Lymph % (Auto) (16.0-40.0) % Laurens % (Auto) (0.0-15.0) % Eos % (Auto) (0.0-7.0) % Baso % (Auto) (0.0-1.5) % Neut # (Auto) (1.4-5.7) K/uL Lymph # (Auto) (0.6-2.4) K/uL Laurens # (Auto) (0.0-0.8) K/uL Eos # (Auto) (0.0-0.7) K/uL Baso # (Auto) (0.0-0.1) K/uL Nucleated RBC % /100WBC Nucleated RBCs # K/uL INR (0.86-1.11) Lactate (0.20-2.00) mmol/L Sodium 138 (136-146) mmol/L Potassium 4.0 (3.5-5.1) mmol/L Chloride 111 H (98-110) mmol/L Carbon Dioxide 18 L (21-31) mmol/L BUN 9 (6.0-23.0) mg/dL Creatinine 0.7 (0.6-1.5) mg/dL Est Cr Clr Drug Dosing TNP Estimated GFR (MDRD) > 60.0 ml/min Glucose 179 H (60-110) mg/dL POC Glucose (60-110) mg/dL Calcium 7.8 L (8.8-10.8) mg/dL Total Bilirubin 0.4 (0.1-1.5) mg/dL AST 12 (5-40) IU/L ALT 9 (8-54) IU/L Alkaline Phosphatase 96 (40-150) Ammonia 49 (14-68) UG/DL Troponin I < 0.10 (0.0-0.29) NG/ML B-Natriuretic Peptide 77 (<100) PG/ML Total Protein 5.4 L (6.0-8.0) g/dL Albumin 2.2 L (3.4-4.8) g/dL Globulin 3.2 (2.0-3.5) g/dL Albumin/Globulin Ratio 0.7 L (1.3-2.8) 07/21/17 Range/Units 20:16 WBC (4.0-11.0) K/uL RBC (4.50-5.90) M/uL Hgb (13.0-17.0) g/dL Hct (38.0-50.0) % MCV (80.0-98.0) fL MCH (27.0-32.0) pg MCHC (31.0-37.0) g/dL RDW Std Deviation (28.0-62.0) fl RDW Coeff of Damion (11.0-15.0) % Plt Count (150-400) K/uL MPV (7.40-12.00) fL Neut % (Auto) (48.0-80.0) % Lymph % (Auto) (16.0-40.0) % Laurens % (Auto) (0.0-15.0) % Eos % (Auto) (0.0-7.0) % Baso % (Auto) (0.0-1.5) % Neut # (Auto) (1.4-5.7) K/uL Lymph # (Auto) (0.6-2.4) K/uL Laurens # (Auto) (0.0-0.8) K/uL Eos # (Auto) (0.0-0.7) K/uL Baso # (Auto) (0.0-0.1) K/uL Nucleated RBC % /100WBC Nucleated RBCs # K/uL INR (0.86-1.11) Lactate (0.20-2.00) mmol/L Sodium (136-146) mmol/L Potassium (3.5-5.1) mmol/L Chloride (98-110) mmol/L Carbon Dioxide (21-31) mmol/L BUN (6.0-23.0) mg/dL Creatinine (0.6-1.5) mg/dL Est Cr Clr Drug Dosing Estimated GFR (MDRD) ml/min Glucose (60-110) mg/dL POC Glucose 156 H (60-110) mg/dL Calcium (8.8-10.8) mg/dL Total Bilirubin (0.1-1.5) mg/dL AST (5-40) IU/L ALT (8-54) IU/L Alkaline Phosphatase (40-150) Ammonia (14-68) UG/DL Troponin I (0.0-0.29) NG/ML B-Natriuretic Peptide (<100) PG/ML Total Protein (6.0-8.0) g/dL Albumin (3.4-4.8) g/dL Globulin (2.0-3.5) g/dL Albumin/Globulin Ratio (1.3-2.8) Meds: Medications Generic Name Dose Route Start Last Admin Trade Name Freq PRN Reason Stop Dose Admin Sodium Chloride 1,000 mls @ 125 mls/hr 07/21/17 20:00 07/21/17 20:08 Normal Saline IV 125 mls/hr STAT NADINE Administration Sodium Chloride 10 ml 07/21/17 19:52 07/21/17 20:07 Saline Flush FLUSH 10 ml ASDIRECTED PRN Administration Keep Vein Open Sodium Chloride 2.5 ml 07/21/17 19:52 07/21/17 20:07 Saline Flush FLUSH 2.5 ml ASDIRECTED PRN Administration Keep Vein Open Departure - Departure Time of Disposition: 21:28 Disposition: Refer to Observation Condition: Good Clinical Impression: Weakness - Discharge Information - My Orders Last 24 Hours: My Active Orders 07/21/17 19:52 Cardiac Monitoring [RC] . DIRECTED EKG Documentation Completion [RC] STAT Pulse Oximetry [RC] ASDIRECTED Chest 1V Frontal [CR] Stat Head wo Cont [CT] Stat CULTURE URINE [RM] Stat UA W/MICROSCOPIC [URIN] Stat Sodium Chloride 0.9% [Saline Flush] 10 ml FLUSH ASDIRECTED PRN Sodium Chloride 0.9% [Saline Flush] 2.5 ml FLUSH ASDIRECTED PRN Blood Culture x2 Reflex Set [OM.PC] Stat Saline Lock Insert [OM.PC] Stat 07/21/17 20:00 Sodium Chloride 0.9% [Normal Saline] 1,000 ml IV STAT 07/21/17 20:05 CULTURE BLOOD [BC] Stat 07/21/17 20:18 CULTURE BLOOD [BC] Stat - Assessment/Plan Last 24 Hours: My Active Orders 07/21/17 19:52 Cardiac Monitoring [RC] . DIRECTED EKG Documentation Completion [RC] STAT Pulse Oximetry [RC] ASDIRECTED Chest 1V Frontal [CR] Stat Head wo Cont [CT] Stat CULTURE URINE [RM] Stat UA W/MICROSCOPIC [URIN] Stat Sodium Chloride 0.9% [Saline Flush] 10 ml FLUSH ASDIRECTED PRN Sodium Chloride 0.9% [Saline Flush] 2.5 ml FLUSH ASDIRECTED PRN Blood Culture x2 Reflex Set [OM.PC] Stat Saline Lock Insert [OM.PC] Stat 07/21/17 20:00 Sodium Chloride 0.9% [Normal Saline] 1,000 ml IV STAT 07/21/17 20:05 CULTURE BLOOD [BC] Stat 07/21/17 20:18 CULTURE BLOOD [BC] Stat
[2017-07-21 20:36] LABS: CHLORIDE,CL 111 mmol/L (98-110); SODIUM,NA 138 mmol/L (136-146)
[2017-07-21] MEDS ORDERED: Acetaminophen 325 MG Tab PO PRN (23:11)
[2017-07-21] MEDS ORDERED: Morphine 2 MG/ML Syringe IVPUSH PRN (23:11)
[2017-07-22 07:10] LABS: CHLORIDE,CL 114 mmol/L (98-110); SODIUM,NA 140 mmol/L (136-146)
[2017-07-22] MEDS: Insulin Aspart 100 Units/ML 3 ML Pen SUBCUT SCH ×5 (07:16→20:26)
[2017-07-22] MEDS: Aspirin 325 MG Tab PO SCH (08:02)
[2017-07-22] MEDS: Hydrochlorothiazide 25 MG Tab PO SCH (08:03)
[2017-07-22] MEDS: Metoprolol Succinate 50 MG Tab.ER PO SCH ×2 (08:03→20:14)
[2017-07-22] MEDS: Losartan 50 MG Tab PO SCH (08:04)
[2017-07-22] MEDS: Ascorbic Acid 500 MG Tab PO SCH (08:04)
[2017-07-22] MEDS ORDERED: Enoxaparin 30 MG/0.3 ML Syringe SUBCUT SCH (09:00)
[2017-07-22] MEDS ORDERED: Vitamin E (dl-alpha-tocopherol acetate) 400 Unit Cap PO SCH (09:00)
[2017-07-22] MEDS ORDERED: Sodium Chloride 0.9% 10 ML Syringe FLUSH PRN (09:47)
[2017-07-22] MEDS ORDERED: Sodium Chloride 0.9% 2.5 ML Syringe FLUSH PRN (09:47)
[2017-07-22] MEDS ORDERED: Sodium Chloride 0.45% 1,000 ML IV SCH (11:15)
[2017-07-22] MEDS ORDERED: Loperamide 2 MG Cap PO ONE (11:15)
[2017-07-22] MEDS: Oxybutynin 5 MG Tab PO SCH (12:25)
[2017-07-22] MEDS: metroNIDAZOLE/Normal Saline 500 MG in Premix Bag 1 BAG IV SCH ×2 (13:38→21:09)
--- NOTE | 2017-07-22 13:46 | CR ---
EXAM DATE: 07/21/17 PATIENT'S AGE: 86 Patient: MANUEL GOODMAN Facility: [place], [place] Site . Site : 1930 Study: XRay Chest [id number]/23/2017 9:00:16 PM Ordering Physician: Kellee Garcia Final Report: INDICATION: Weakness TECHNIQUE: Chest 1 view. COMPARISON: 07/14/2017 FINDINGS: Cardiovascular and mediastinum: Heart size and vasculature are normal in caliber and appearance. Mediastinum is within normal limits. Sternotomy wires noted. Lungs and pleural space: Left lower lobe atelectasis. No sign of infiltrate or mass. No sign of pleural effusion. No pneumothorax. Bones and soft tissues: No significant findings. IMPRESSION: Mild left lower lobe atelectasis otherwise unremarkable one-view chest. Dictated by Jose Guerra MD @ 07/21/2017 9:10:42 PM Dictated by: Jose Guerra MD @ 07/21/2017 21:10:49 (Electronic Signature) Report Signed by Proxy. [facility]
--- NOTE | 2017-07-22 13:47 | CT ---
EXAM DATE: 07/21/17 PATIENT'S AGE: 86 Patient: MANUEL GOODMAN Facility: [place], [place] Site . Site : 1930 Study: CT Head [id number]/23/2017 9:00:51 PM Ordering Physician: Kellee Garcia Final Report: INDICATION: Weakness TECHNIQUE: CT head without contrast. COMPARISON: 07/14/2017 FINDINGS: CSF spaces: Within normal limits for age. Brain parenchyma: The orellana-white differentiation is normal. No sign of mass, hemorrhage, or midline shift. Diffuse volume loss. Skull base and calvarium: The visualized paranasal sinuses and mastoid air cells demonstrate no acute or significant findings. The visualized orbits are grossly unremarkable. No skull fractures. IMPRESSION: Unremarkable noncontrast head CT. No acute intracranial abnormalities. Stable appearance of the brain compared to 07/14/2017. Dictated by Jose Guerra MD @ 07/21/2017 9:14:06 PM Dictated by: Jose Guerra MD @ 07/21/2017 21:14:13 (Electronic Signature) Report Signed by Proxy. [facility]
--- NOTE | 2017-07-22 15:53 | PCM.HP ---
H&P History of Present Illness - General Date of Service: 07/22/17 Admit Problem/Dx: Admission Diagnosis/Problem Admission Diagnosis/Problem Weakness Source of Information: Patient History Limitations: Reports: No Limitations - History of Present Illness Initial Comments - Free Text/Narative: Patient 86 years old man with PMHx of Cad s/p CABG,presented to ER after he was discharged from [facility] where he was treated for diverticulitis. Patient has diarrhea now, watery few episodes and he c/o leg swelling. He used to wear compression stockings , but since he was hospitalized he did not wear them. He also c/o weight gain from 212lbs to 223 lbs. Patient was referred here upon discharged from [place] , to have Physical therapy for deconditioning.Patient has decreased appetite, his albumin is low and had hypoglycemia at home. Onset of Symptoms: Reports: Gradual Duration of Symptoms: Reports: Week(s): - Related Data Allergies/Adverse Reactions: Allergies Allergy/AdvReac Type Severity Reaction Status Date / Time Penicillins Allergy Hives Verified 07/21/17 20:04 Home Medications: Home Meds Acetaminophen [Tylenol] 650 mg PO Q6HR PRN 06/29/17 [History] Ascorbic Acid [Vitamin C] 500 mg PO DAILY 06/29/17 [History] Aspirin 325 mg PO DAILY 06/29/17 [History] Hydrochlorothiazide 25 mg PO DAILY 06/29/17 [History] Ibuprofen 200 mg PO TID 06/29/17 [History] Losartan [Cozaar] 25 mg PO DAILY 06/29/17 [History] Metoprolol Succinate [Toprol XL] 50 mg PO BID 06/29/17 [History] Oxybutynin 5 mg PO DAILY 06/29/17 [History] Simvastatin [Zocor] 40 mg PO BEDTIME 06/29/17 [History] Vitamin E Mixed [Vitamin E] 250 units PO DAILY 06/29/17 [History] glipiZIDE [Glucotrol XL] 5 mg PO BID 06/29/17 [History] metFORMIN [Glucophage] 500 mg PO BID 06/29/17 [History] Past Medical History HEENT History: Reports: Cataract Cardiovascular History: Reports: Angina, Arrhythmia, Bypass, CAD, Heart Failure , Heart Murmur, High Cholesterol, Hypertension Respiratory History: Reports: None Gastrointestinal History: Reports: None Other Gastrointestinal History: diverticulitis Genitourinary History: Reports: None Musculoskeletal History: Reports: Arthritis Endocrine/Metabolic History: Reports: Diabetes, Type II Hematologic History: Reports: Anemia - Infectious Disease History Infectious Disease History: Reports: Chicken Pox, Mumps - Past Surgical History Male Surgical History: Reports: Prostatectomy Social & Family History - Family History Family Medical History: Noncontributory - Tobacco Use Smoking Status *Q: Former Smoker Used Tobacco, but Quit: Yes Month Tobacco Last Used: 30 years ago Second Hand Smoke Exposure: No - Caffeine Use Caffeine Use: Reports: Coffee - Recreational Drug Use Recreational Drug Use: No H&P Review of Systems - Review of Systems: Review Of Systems: See Below General: Reports: Weakness HEENT: Reports: No Symptoms Pulmonary: Reports: No Symptoms Cardiovascular: Reports: No Symptoms, Edema Gastrointestinal: Reports: Diarrhea Genitourinary: Reports: No Symptoms Musculoskeletal: Reports: No Symptoms Skin: Reports: No Symptoms Psychiatric: Reports: No Symptoms Exam - Exam Exam: See Below - Vital Signs Vital Signs: Last Vital Signs Temp 97.5 F 07/22/17 15:43 Pulse 69 07/22/17 15:43 Resp 22 H 07/22/17 15:43 BP 122/54 L 07/22/17 15:43 Pulse Ox 95 07/22/17 15:43 Weight: 223 lb 6 oz - Exam General: Alert, Oriented, Cooperative HEENT: Conjunctiva Clear Neck: Supple, Trachea Midline. No: JVD Lungs: Clear to Auscultation, Normal Respiratory Effort Cardiovascular: Regular Rate, Regular Rhythm, Normal S1, Normal S2 GI/Abdominal Exam: Normal Bowel Sounds, Soft, Non-Tender, No Organomegaly, No Mass (Male) Exam: No Hernia Back Exam: Normal Inspection - Patient Data Lab Results Last 24 hrs: Laboratory Results - last 24 hr 07/22/17 07/22/17 07/22/17 Range/Units 06:10 06:16 06:16 WBC 10.69 (4.0-11.0) K/uL RBC 4.38 L (4.50-5.90) M/uL Hgb 11.0 L (13.0-17.0) g/dL Hct 34.4 L (38.0-50.0) % MCV 78.5 L (80.0-98.0) fL MCH 25.1 L (27.0-32.0) pg MCHC 32.0 (31.0-37.0) g/dL RDW Std Deviation 46.3 (28.0-62.0) fl RDW Coeff of Damion 16 H (11.0-15.0) % Plt Count 311 (150-400) K/uL MPV 9.10 (7.40-12.00) fL Nucleated RBC % 0.0 /100WBC Nucleated RBCs # 0 K/uL Sodium 140 (136-146) mmol/L Potassium 3.8 (3.5-5.1) mmol/L Chloride 114 H (98-110) mmol/L Carbon Dioxide 18 L (21-31) mmol/L BUN 8 (6.0-23.0) mg/dL Creatinine 0.7 (0.6-1.5) mg/dL Est Cr Clr Drug Dosing 82.39 mL/min Estimated GFR (MDRD) > 60.0 ml/min Glucose 155 H (60-110) mg/dL POC Glucose (60-110) mg/dL Calcium 7.6 L (8.8-10.8) mg/dL Urine Color YELLOW Urine Appearance CLEAR Urine pH 5.5 (5.0-8.0) Ur Specific [place] >= 1.030 (1.001-1.035) Urine Protein TRACE (NEGATIVE) mg/dL Urine Glucose (UA) NEGATIVE (NEGATIVE) mg/dL Urine Ketones 15 H (NEGATIVE) mg/dL Urine Occult Blood NEGATIVE (NEGATIVE) Urine Nitrite POSITIVE H (NEGATIVE) Urine Bilirubin SMALL H (NEGATIVE) Urine Ictotest NEGATIVE Urine Urobilinogen 0.2 (<2.0) EU/dL Ur Leukocyte Esterase NEGATIVE (NEGATIVE) Urine RBC NONE SEEN (0-2/HPF) Urine WBC 0-1 (0-5/HPF) Ur Epithelial Cells RARE (NONE-FEW) Urine Bacteria 1+ H (NEGATIVE) Urine Mucus LIGHT (NONE-MOD) Urine Trichomonas PRESENT (NEGATIVE) 07/22/17 07/22/17 Range/Units 06:47 11:31 WBC (4.0-11.0) K/uL RBC (4.50-5.90) M/uL Hgb (13.0-17.0) g/dL Hct (38.0-50.0) % MCV (80.0-98.0) fL MCH (27.0-32.0) pg MCHC (31.0-37.0) g/dL RDW Std Deviation (28.0-62.0) fl RDW Coeff of Damion (11.0-15.0) % Plt Count (150-400) K/uL MPV (7.40-12.00) fL Nucleated RBC % /100WBC Nucleated RBCs # K/uL Sodium (136-146) mmol/L Potassium (3.5-5.1) mmol/L Chloride (98-110) mmol/L Carbon Dioxide (21-31) mmol/L BUN (6.0-23.0) mg/dL Creatinine (0.6-1.5) mg/dL Est Cr Clr Drug Dosing mL/min Estimated GFR (MDRD) ml/min Glucose (60-110) mg/dL POC Glucose 140 H 148 H (60-110) mg/dL Calcium (8.8-10.8) mg/dL Urine Color Urine Appearance Urine pH (5.0-8.0) Ur Specific La[place] (1.001-1.035) Urine Protein (NEGATIVE) mg/dL Urine Glucose (UA) (NEGATIVE) mg/dL Urine Ketones (NEGATIVE) mg/dL Urine Occult Blood (NEGATIVE) Urine Nitrite (NEGATIVE) Urine Bilirubin (NEGATIVE) Urine Ictotest Urine Urobilinogen (<2.0) EU/dL Ur Leukocyte Esterase (NEGATIVE) Urine RBC (0-2/HPF) Urine WBC (0-5/HPF) Ur Epithelial Cells (NONE-FEW) Urine Bacteria (NEGATIVE) Urine Mucus (NONE-MOD) Urine Trichomonas (NEGATIVE) Result Diagrams: 07/22/17 06:16 07/22/17 06:16 Rik Results Last 24 hrs: Microbiology 07/22/17 06:10 Clostridium difficile Toxin A&B (M) - Final Stool / Feces Negative for C.Diff Toxin/AG 07/22/17 06:10 Campylobacter Antigen Assay - Final Stool / Feces NEGATIVE CAMPYLOBACTER AG *Q Meaningful Use (ADM) - VTE *Q VTE Criteria *Q: - Stroke *Q Stroke Criteria *Q: - AMI *Q AMI Criteria *Q: - Problem List (1) Generalized weakness SNOMED Code(s): 64624988 ICD Code: R53.1 - WEAKNESS Status: Acute Current Visit: Yes (2) Dependent edema SNOMED Code(s): 550025996 ICD Code: R60.9 - EDEMA, UNSPECIFIED Status: Acute Current Visit: No (3) CHF (congestive heart failure) SNOMED Code(s): 37574548 ICD Code: I50.9 - HEART FAILURE, UNSPECIFIED Status: Chronic Current Visit: No Qualifiers: Congestive heart failure type: unspecified congestive heart failure type Congestive heart failure chronicity: chronic Qualified Code(s): I50.9 - Heart failure, unspecified Problem List Initiated/Reviewed/Updated: Yes Orders Last 24hrs: Active Orders 24 hr Category Date Time Status Patient Status [ADT] Routine ADT 07/21/17 23:11 Active Antiembolic Devices [RC] PER UNIT ROUTINE Care 07/21/17 23:17 Active Blood Glucose Check, Bedside [RC] QIDACANDBED Care 07/22/17 07:30 Active Up With Assistance [RC] ASDIRECTED Care 07/21/17 23:11 Active VTE/DVT Education [RC] PER UNIT ROUTINE Care 07/21/17 23:11 Active Vital Signs [RC] Q4H Care 07/21/17 23:11 Active Consult to Websphere Administrator [CONS] Routine Cons 07/21/17 23:11 Active PT Evaluation and Treatment [CONS] Routine Cons 07/21/17 23:11 Active BASIC METABOLIC PANEL,BMP [CHEM] AM Lab 07/23/17 05:11 Ordered BASIC METABOLIC PANEL,BMP [CHEM] AM Lab 07/24/17 05:11 Ordered CBC W/O DIFF,HEMOGRAM [HEME] AM Lab 07/23/17 05:11 Ordered CBC W/O DIFF,HEMOGRAM [HEME] AM Lab 07/24/17 05:11 Ordered CULTURE STOOL + CAMPY+SHIGATOX [RM] Routine Lab 07/22/17 06:10 Results Acetaminophen [Tylenol] Med 07/21/17 23:11 Active 650 mg PO Q4H PRN Ascorbic Acid [Vitamin C] Med 07/22/17 09:00 Active 500 mg PO DAILY Aspirin Med 07/22/17 09:00 Active 325 mg PO DAILY Hydrochlorothiazide Med 07/22/17 09:00 Active 25 mg PO DAILY Insulin Aspart [NovoLOG] Med 07/22/17 07:30 Active See Protocol SUBCUT TIDAC Losartan [Cozaar] Med 07/22/17 09:00 Active 25 mg PO DAILY Metoprolol Succinate [Toprol XL] Med 07/22/17 09:00 Active 50 mg PO BID Morphine Med 07/21/17 23:11 Active 2 mg IVPUSH Q2H PRN Oxybutynin Med 07/22/17 09:00 Active 5 mg PO DAILY Simvastatin [Zocor] Med 07/22/17 21:00 Active 40 mg PO BEDTIME Sodium Chloride 0.9% [Saline Flush] Med 07/21/17 23:11 Active 10 ml FLUSH ASDIRECTED PRN Sodium Chloride 0.9% [Saline Flush] Med 07/22/17 09:47 Active 10 ml FLUSH ASDIRECTED PRN Sodium Chloride 0.9% [Saline Flush] Med 07/21/17 23:11 Active 2.5 ml FLUSH ASDIRECTED PRN Sodium Chloride 0.9% [Saline Flush] Med 07/22/17 09:47 Active 2.5 ml FLUSH ASDIRECTED PRN Vitamin E (dl, acetate) [Vitamin E] Med 07/22/17 09:00 Active 250 units PO DAILY metroNIDAZOLE/Normal Saline [Flagyl 500 MG in NS 100 ML Med 07/22/17 14:00 Active ] 500 mg Premix Bag 1 bag IV TID Antiembolic Hose [OM.PC] Per Unit Routine Oth 07/21/17 23:16 Ordered Convert IV to Saline Lock [OM.PC] Routine Oth 07/22/17 09:47 Ordered Peripheral IV Insertion Adult [OM.PC] Routine Oth 07/21/17 23:11 Ordered Resuscitation Status Routine Resus Stat 07/21/17 23:11 Ordered Medication Orders Acetaminophen (Tylenol) 650 mg PO Q4H PRN PRN Reason: Pain (Mild 1-3)/fever Ascorbic Acid (Vitamin C) 500 mg PO DAILY [facility] Last Admin: 07/22/17 08:04 Dose: 500 mg Aspirin (Aspirin) 325 mg PO DAILY [facility] Last Admin: 07/22/17 08:02 Dose: 325 mg Hydrochlorothiazide (Hydrochlorothiazide) 25 mg PO DAILY [facility] Last Admin: 07/22/17 08:03 Dose: 25 mg Metronidazole 500 mg/ Premix 100 mls @ 100 mls/hr IV TID [facility] Last Admin: 07/22/17 13:38 Dose: 100 mls/hr Insulin Aspart (Novolog) 0 unit SUBCUT TIDAC [facility] PRN Reason: Protocol Last Admin: 07/22/17 12:27 Dose: Not Given Admin: 07/22/17 07:16 Dose: Not Given Losartan Potassium (Cozaar) 25 mg PO DAILY [facility] Last Admin: 07/22/17 08:04 Dose: 25 mg Metoprolol Succinate (Toprol Xl) 50 mg PO BID [facility] Last Admin: 07/22/17 08:03 Dose: 50 mg Morphine Sulfate (Morphine) 2 mg IVPUSH Q2H PRN PRN Reason: Pain (severe 7-10) Stop: 07/22/17 23:17 Oxybutynin Chloride (Oxybutynin) 5 mg PO DAILY [facility] Last Admin: 07/22/17 12:25 Dose: 5 mg Simvastatin (Zocor) 40 mg PO BEDTIME [facility] Sodium Chloride (Saline Flush) 10 ml FLUSH ASDIRECTED PRN PRN Reason: Keep Vein Open Last Admin: 07/21/17 20:07 Dose: 10 ml Sodium Chloride (Saline Flush) 2.5 ml FLUSH ASDIRECTED PRN PRN Reason: Keep Vein Open Last Admin: 07/21/17 20:07 Dose: 2.5 ml Sodium Chloride (Saline Flush) 10 ml FLUSH ASDIRECTED PRN PRN Reason: Keep Vein Open Sodium Chloride (Saline Flush) 2.5 ml FLUSH ASDIRECTED PRN PRN Reason: Keep Vein Open Sodium Chloride (Saline Flush) 10 ml FLUSH ASDIRECTED PRN PRN Reason: Keep Vein Open Sodium Chloride (Saline Flush) 2.5 ml FLUSH ASDIRECTED PRN PRN Reason: Keep Vein Open Vitamin E (Vitamin E) 250 units PO DAILY [facility] Last Admin: 07/22/17 12:27 Dose: Not Given Assessment/Plan Comment:: a/p Diarrhea hypoglycemia generalized weakness fluid overload b/l LE swelling CAD DM Possible UTI Plan will admit patient [facility]. stool studies, stool for c diff, immodium 4 mg po if negative Physical therapy consult Bridge Attacher Consult d/c glipizide, will give patient insulin on sliding scale Lasix 40 mg iv BID monitor and replace electrolytes Fluid restriction Continue aspirin and plavix Rocephine 1gram iv q 24h , f/up urine culture
[2017-07-22] MEDS ORDERED: Furosemide 40 MG/4 ML VIAL IVPUSH ONE (17:04)
[2017-07-22] MEDS: cefTRIAXone 1 GM in Premix Bag 1 BAG IV SCH (17:29)
[2017-07-22] MEDS ORDERED: Cephalexin 500 MG Cap PO SCH (20:00)
[2017-07-22] MEDS: Simvastatin 40 MG Tab PO SCH (20:14)
[2017-07-22] MEDS: Furosemide 40 MG/4 ML VIAL IVPUSH SCH (20:41)
[2017-07-23] MEDS: metroNIDAZOLE/Normal Saline 500 MG in Premix Bag 1 BAG IV SCH ×3 (06:14→22:21)
[2017-07-23 06:31] LABS: CHLORIDE,CL 109 mmol/L (98-110); SODIUM,NA 139 mmol/L (136-146)
[2017-07-23] MEDS: Insulin Aspart 100 Units/ML 3 ML Pen SUBCUT SCH ×4 (07:58→22:14)
[2017-07-23] MEDS: Furosemide 40 MG/4 ML VIAL IVPUSH SCH ×2 (08:01→13:33)
[2017-07-23] MEDS: Hydrochlorothiazide 25 MG Tab PO SCH (08:02)
[2017-07-23] MEDS: Aspirin 325 MG Tab PO SCH (08:02)
[2017-07-23] MEDS: Losartan 50 MG Tab PO SCH (08:02)
[2017-07-23] MEDS: Oxybutynin 5 MG Tab PO SCH (08:03)
[2017-07-23] MEDS: Metoprolol Succinate 50 MG Tab.ER PO SCH ×2 (08:03→22:14)
[2017-07-23] MEDS: Ascorbic Acid 500 MG Tab PO SCH (08:03)
[2017-07-23] MEDS: Vitamin E (dl-alpha-tocopherol acetate) 400 Unit Cap PO SCH (08:17)
[2017-07-23] MEDS: Potassium Chloride 20 MEQ Tab.ER PO SCH ×2 (14:36→19:25)
--- NOTE | 2017-07-23 17:24 | PCM.PN ---
- General Info Date of Service: 07/23/17 - Review of Systems General: Reports: Weakness HEENT: Reports: No Symptoms Pulmonary: Reports: No Symptoms Cardiovascular: Reports: Dyspnea on Exertion, Edema Gastrointestinal: Reports: No Symptoms Genitourinary: Reports: No Symptoms Musculoskeletal: Reports: No Symptoms Skin: Reports: No Symptoms Neurological: Reports: No Symptoms Psychiatric: Reports: No Symptoms - Patient Data Vitals - Most Recent: Last Vital Signs Temp 98.1 F 07/23/17 12:00 Pulse 99 07/23/17 12:00 Resp 16 07/23/17 12:00 BP 127/58 L 07/23/17 12:00 Pulse Ox 96 07/23/17 12:00 Weight - Most Recent: 216 lb 4.375 oz I&O - Last 24 Hours: Intake & Output 07/23/17 07/23/17 07/23/17 06:59 14:59 22:59 Intake Total 250 100 Output Total 1775 Balance -1525 100 Lab Results Last 24 Hours: Laboratory Results - last 24 hr 07/22/17 07/23/17 07/23/17 Range/Units 20:17 05:50 05:50 WBC 8.49 (4.0-11.0) K/uL RBC 3.89 L (4.50-5.90) M/uL Hgb 9.7 L (13.0-17.0) g/dL Hct 30.8 L (38.0-50.0) % MCV 79.2 L (80.0-98.0) fL MCH 24.9 L (27.0-32.0) pg MCHC 31.5 (31.0-37.0) g/dL RDW Std Deviation 46.5 (28.0-62.0) fl RDW Coeff of Damion 16 H (11.0-15.0) % Plt Count 312 (150-400) K/uL MPV 9.30 (7.40-12.00) fL Nucleated RBC % 0.0 /100WBC Nucleated RBCs # 0 K/uL Sodium 139 (136-146) mmol/L Potassium 3.0 L (3.5-5.1) mmol/L Chloride 109 (98-110) mmol/L Carbon Dioxide 21 (21-31) mmol/L BUN 8 (6.0-23.0) mg/dL Creatinine 0.6 (0.6-1.5) mg/dL Est Cr Clr Drug Dosing 96.12 mL/min Estimated GFR (MDRD) > 60.0 ml/min Glucose 138 H (60-110) mg/dL POC Glucose 171 H (60-110) mg/dL Calcium 7.3 L (8.8-10.8) mg/dL 07/23/17 07/23/17 07/23/17 Range/Units 06:37 12:00 16:30 WBC (4.0-11.0) K/uL RBC (4.50-5.90) M/uL Hgb (13.0-17.0) g/dL Hct (38.0-50.0) % MCV (80.0-98.0) fL MCH (27.0-32.0) pg MCHC (31.0-37.0) g/dL RDW Std Deviation (28.0-62.0) fl RDW Coeff of Damion (11.0-15.0) % Plt Count (150-400) K/uL MPV (7.40-12.00) fL Nucleated RBC % /100WBC Nucleated RBCs # K/uL Sodium (136-146) mmol/L Potassium (3.5-5.1) mmol/L Chloride (98-110) mmol/L Carbon Dioxide (21-31) mmol/L BUN (6.0-23.0) mg/dL Creatinine (0.6-1.5) mg/dL Est Cr Clr Drug Dosing mL/min Estimated GFR (MDRD) ml/min Glucose (60-110) mg/dL POC Glucose 127 H 150 H 182 H (60-110) mg/dL Calcium (8.8-10.8) mg/dL 07/23/17 Range/Units 16:47 WBC (4.0-11.0) K/uL RBC (4.50-5.90) M/uL Hgb (13.0-17.0) g/dL Hct (38.0-50.0) % MCV (80.0-98.0) fL MCH (27.0-32.0) pg MCHC (31.0-37.0) g/dL RDW Std Deviation (28.0-62.0) fl RDW Coeff of Damion (11.0-15.0) % Plt Count (150-400) K/uL MPV (7.40-12.00) fL Nucleated RBC % /100WBC Nucleated RBCs # K/uL Sodium (136-146) mmol/L Potassium (3.5-5.1) mmol/L Chloride (98-110) mmol/L Carbon Dioxide (21-31) mmol/L BUN (6.0-23.0) mg/dL Creatinine (0.6-1.5) mg/dL Est Cr Clr Drug Dosing mL/min Estimated GFR (MDRD) ml/min Glucose (60-110) mg/dL POC Glucose 163 H (60-110) mg/dL Calcium (8.8-10.8) mg/dL Med Orders - Current: Current Medications Acetaminophen (Tylenol) 650 mg PO Q4H PRN PRN Reason: Pain (Mild 1-3)/fever Ascorbic Acid (Vitamin C) 500 mg PO DAILY [facility] Last Admin: 07/23/17 08:03 Dose: 500 mg Aspirin (Aspirin) 325 mg PO DAILY [facility] Last Admin: 07/23/17 08:02 Dose: 325 mg Furosemide (Lasix) 40 mg IVPUSH BIDDIURETIC [facility] Last Admin: 07/23/17 13:33 Dose: 40 mg Hydrochlorothiazide (Hydrochlorothiazide) 25 mg PO DAILY [facility] Last Admin: 07/23/17 08:02 Dose: 25 mg Metronidazole 500 mg/ Premix 100 mls @ 100 mls/hr IV TID [facility] Last Admin: 07/23/17 13:33 Dose: 100 mls/hr Ceftriaxone Sodium/Dextrose 1 (gm/ Premix) 50 mls @ 100 mls/hr IV Q24H [facility] Last Admin: 07/22/17 17:29 Dose: 100 mls/hr Insulin Aspart (Novolog) 0 unit SUBCUT ACBED [facility] PRN Reason: Protocol Last Admin: 07/23/17 12:23 Dose: 2 units Losartan Potassium (Cozaar) 25 mg PO DAILY [facility] Last Admin: 07/23/17 08:02 Dose: 25 mg Metoprolol Succinate (Toprol Xl) 50 mg PO BID [facility] Last Admin: 07/23/17 08:03 Dose: 50 mg Oxybutynin Chloride (Oxybutynin) 5 mg PO DAILY [facility] Last Admin: 07/23/17 08:03 Dose: 5 mg Potassium Chloride (Klor-Con M20) 40 meq PO Q6H [facility] Stop: 07/24/17 07:46 Last Admin: 07/23/17 14:36 Dose: 40 meq Simvastatin (Zocor) 40 mg PO BEDTIME [facility] Last Admin: 07/22/17 20:14 Dose: 40 mg Sodium Chloride (Saline Flush) 10 ml FLUSH ASDIRECTED PRN PRN Reason: Keep Vein Open Last Admin: 07/21/17 20:07 Dose: 10 ml Sodium Chloride (Saline Flush) 2.5 ml FLUSH ASDIRECTED PRN PRN Reason: Keep Vein Open Last Admin: 07/21/17 20:07 Dose: 2.5 ml Sodium Chloride (Saline Flush) 10 ml FLUSH ASDIRECTED PRN PRN Reason: Keep Vein Open Sodium Chloride (Saline Flush) 2.5 ml FLUSH ASDIRECTED PRN PRN Reason: Keep Vein Open Sodium Chloride (Saline Flush) 10 ml FLUSH ASDIRECTED PRN PRN Reason: Keep Vein Open Sodium Chloride (Saline Flush) 2.5 ml FLUSH ASDIRECTED PRN PRN Reason: Keep Vein Open Vitamin E (Vitamin E) 400 units PO DAILY [facility] Last Admin: 07/23/17 08:17 Dose: Not Given Discontinued Medications Cephalexin (Keflex) 500 mg PO Q12H [facility] Last Admin: 07/22/17 23:04 Dose: Not Given Enoxaparin Sodium (Lovenox) 30 mg SUBCUT DAILY [facility] Furosemide (Lasix) 40 mg IVPUSH NOW ONE Stop: 07/22/17 17:05 Last Admin: 07/22/17 17:30 Dose: 40 mg Sodium Chloride (Normal Saline) 1,000 mls @ 125 mls/hr IV STAT [facility] Last Admin: 07/21/17 20:08 Dose: 125 mls/hr Sodium Chloride (Sodium Chloride 0.45%) 1,000 mls @ 75 mls/hr IV ASDIRECTED [facility] Insulin Aspart (Novolog) 0 unit SUBCUT TIDAC [facility] PRN Reason: Protocol Last Admin: 07/22/17 17:08 Dose: Not Given Loperamide HCl (Imodium) 4 mg PO ONETIME ONE Stop: 07/22/17 11:16 Last Admin: 07/22/17 12:13 Dose: 4 mg Morphine Sulfate (Morphine) 2 mg IVPUSH Q2H PRN PRN Reason: Pain (severe 7-10) Stop: 07/22/17 23:17 Vitamin E (Vitamin E) 250 units PO DAILY [facility] Last Admin: 07/22/17 12:27 Dose: Not Given - Exam General: Alert, Oriented HEENT: Pupils Equal, Pupils Reactive Neck: No Thyromegaly Lungs: Clear to Auscultation Cardiovascular: Regular Rate, Regular Rhythm, No Murmurs GI/Abdominal Exam: Normal Bowel Sounds, Soft, Non-Tender, No Organomegaly, No Distention Back Exam: Normal Inspection Extremities: Normal Inspection Skin: Warm Neurological: No New Focal Deficit Psy/Mental Status: Alert, Normal Affect - Problem List & Annotations (1) Generalized weakness SNOMED Code(s): 94213586 Code(s): R53.1 - WEAKNESS Status: Acute Current Visit: Yes (2) Dependent edema SNOMED Code(s): 413831758 Code(s): R60.9 - EDEMA, UNSPECIFIED Status: Acute Current Visit: No (3) CHF (congestive heart failure) SNOMED Code(s): 00897320 Code(s): I50.9 - HEART FAILURE, UNSPECIFIED Status: Chronic Current Visit : No Qualifiers: Congestive heart failure type: unspecified congestive heart failure type Congestive heart failure chronicity: chronic Qualified Code(s): I50.9 - Heart failure, unspecified - Problem List Review Problem List Initiated/Reviewed/Updated: Yes - My Orders Last 24 Hours: My Active Orders 07/22/17 17:15 cefTRIAXone [Rocephin in Dextrose,Iso-Osm 1 GM/50 ML] 1 gm Premix Bag 1 bag IV Q24H 07/22/17 21:00 Furosemide [Lasix] 40 mg IVPUSH BIDDIURETIC 07/23/17 09:00 Vitamin E (dl, acetate) [Vitamin E] 400 units PO DAILY 07/23/17 13:45 Potassium Chloride [Klor-Con M20] 40 meq PO Q6H 07/23/17 15:14 Communication Order [RC] ROUTINE 07/23/17 Breakfast Fluid Restriction [DIET] - Plan Plan:: a/p generalized weakness fluid overload b/l LE swelling CAD DM Possible UTI Plan stool studies, stool for c diff, neg Physical therapy , awaiting rehab Practicing Md Anesthesiologist Consult insulin on sliding scale Lasix 40 mg iv BID monitor and replace electrolytes Fluid restriction 1200 cc Continue aspirin and plavix Rocephine 1gram iv q 24h , f/up urine culture neg day 1
[2017-07-23] MEDS: cefTRIAXone 1 GM in Premix Bag 1 BAG IV SCH (17:30)
[2017-07-23] MEDS: Simvastatin 40 MG Tab PO SCH (22:14)
[2017-07-24] MEDS: Potassium Chloride 20 MEQ Tab.ER PO SCH ×2 (01:52→07:24)
[2017-07-24] MEDS: metroNIDAZOLE/Normal Saline 500 MG in Premix Bag 1 BAG IV SCH ×3 (06:24→21:07)
[2017-07-24 06:31] LABS: CHLORIDE,CL 108 mmol/L (98-110); SODIUM,NA 140 mmol/L (136-146)
[2017-07-24] MEDS: Insulin Aspart 100 Units/ML 3 ML Pen SUBCUT SCH ×4 (06:34→21:06)
[2017-07-24] MEDS: Furosemide 40 MG/4 ML VIAL IVPUSH SCH (07:24)
[2017-07-24] MEDS: Vitamin E (dl-alpha-tocopherol acetate) 400 Unit Cap PO SCH (09:47)
[2017-07-24] MEDS: Oxybutynin 5 MG Tab PO SCH (09:47)
[2017-07-24] MEDS: Aspirin 325 MG Tab PO SCH (09:47)
[2017-07-24] MEDS: Ascorbic Acid 500 MG Tab PO SCH (09:47)
[2017-07-24] MEDS: Losartan 50 MG Tab PO SCH (12:11)
[2017-07-24] MEDS: Metoprolol Succinate 50 MG Tab.ER PO SCH ×2 (12:11→21:01)
[2017-07-24] MEDS: Hydrochlorothiazide 25 MG Tab PO SCH (12:11)
--- NOTE | 2017-07-24 16:08 | PCM.PN ---
- General Info Date of Service: 07/24/17 Admission Dx/Problem (Free Text): Admission Diagnosis/Problem Admission Diagnosis/Problem Weakness Subjective Update: feeling better , had significant diuresis :-1800 cc . Has diarrhea 4 BM in am. - Review of Systems General: Reports: No Symptoms, Weakness HEENT: Reports: No Symptoms Pulmonary: Reports: No Symptoms Cardiovascular: Reports: Edema Gastrointestinal: Reports: No Symptoms Genitourinary: Reports: No Symptoms Musculoskeletal: Reports: No Symptoms Skin: Reports: No Symptoms Neurological: Reports: No Symptoms - Patient Data Vitals - Most Recent: Last Vital Signs Temp 98.2 F 07/24/17 11:47 Pulse 89 07/24/17 12:11 Resp 20 07/24/17 11:47 BP 94/53 L 07/24/17 12:11 Pulse Ox 99 07/24/17 11:47 Weight - Most Recent: 208 lb 1.862 oz I&O - Last 24 Hours: Intake & Output 07/24/17 07/24/17 07/24/17 06:59 14:59 22:59 Intake Total 470 Output Total 550 Balance -80 Lab Results Last 24 Hours: Laboratory Results - last 24 hr 07/23/17 07/23/17 07/23/17 Range/Units 16:30 16:47 20:53 WBC (4.0-11.0) K/uL RBC (4.50-5.90) M/uL Hgb (13.0-17.0) g/dL Hct (38.0-50.0) % MCV (80.0-98.0) fL MCH (27.0-32.0) pg MCHC (31.0-37.0) g/dL RDW Std Deviation (28.0-62.0) fl RDW Coeff of Damion (11.0-15.0) % Plt Count (150-400) K/uL MPV (7.40-12.00) fL Nucleated RBC % /100WBC Nucleated RBCs # K/uL Sodium (136-146) mmol/L Potassium (3.5-5.1) mmol/L Chloride (98-110) mmol/L Carbon Dioxide (21-31) mmol/L BUN (6.0-23.0) mg/dL Creatinine (0.6-1.5) mg/dL Est Cr Clr Drug Dosing mL/min Estimated GFR (MDRD) ml/min Glucose (60-110) mg/dL POC Glucose 182 H 163 H 142 H (60-110) mg/dL Calcium (8.8-10.8) mg/dL 07/24/17 07/24/17 07/24/17 Range/Units 06:03 06:03 06:32 WBC 8.69 (4.0-11.0) K/uL RBC 4.15 L (4.50-5.90) M/uL Hgb 10.3 L (13.0-17.0) g/dL Hct 32.7 L (38.0-50.0) % MCV 78.8 L (80.0-98.0) fL MCH 24.8 L (27.0-32.0) pg MCHC 31.5 (31.0-37.0) g/dL RDW Std Deviation 46.7 (28.0-62.0) fl RDW Coeff of Damion 16 H (11.0-15.0) % Plt Count 313 (150-400) K/uL MPV 9.30 (7.40-12.00) fL Nucleated RBC % 0.0 /100WBC Nucleated RBCs # 0 K/uL Sodium 140 (136-146) mmol/L Potassium 3.8 (3.5-5.1) mmol/L Chloride 108 (98-110) mmol/L Carbon Dioxide 24 (21-31) mmol/L BUN 9 (6.0-23.0) mg/dL Creatinine 0.7 (0.6-1.5) mg/dL Est Cr Clr Drug Dosing 82.39 mL/min Estimated GFR (MDRD) > 60.0 ml/min Glucose 129 H (60-110) mg/dL POC Glucose 140 H (60-110) mg/dL Calcium 7.4 L (8.8-10.8) mg/dL Med Orders - Current: Current Medications Acetaminophen (Tylenol) 650 mg PO Q4H PRN PRN Reason: Pain (Mild 1-3)/fever Last Admin: 07/24/17 01:53 Dose: 650 mg Ascorbic Acid (Vitamin C) 500 mg PO DAILY [facility] Last Admin: 07/24/17 09:47 Dose: 500 mg Aspirin (Aspirin) 325 mg PO DAILY [facility] Last Admin: 07/24/17 09:47 Dose: 325 mg Furosemide (Lasix) 40 mg PO DAILY [facility] Hydrochlorothiazide (Hydrochlorothiazide) 25 mg PO DAILY [facility] Last Admin: 07/24/17 12:11 Dose: Not Given Metronidazole 500 mg/ Premix 100 mls @ 100 mls/hr IV TID [facility] Last Admin: 07/24/17 13:14 Dose: 100 mls/hr Insulin Aspart (Novolog) 0 unit SUBCUT ACBED [facility] PRN Reason: Protocol Last Admin: 07/24/17 11:47 Dose: 2 units Losartan Potassium (Cozaar) 25 mg PO DAILY [facility] Last Admin: 07/24/17 12:11 Dose: Not Given Metoprolol Succinate (Toprol Xl) 50 mg PO BID [facility] Last Admin: 07/24/17 12:11 Dose: Not Given Oxybutynin Chloride (Oxybutynin) 5 mg PO DAILY [facility] Last Admin: 07/24/17 09:47 Dose: 5 mg Simvastatin (Zocor) 40 mg PO BEDTIME [facility] Last Admin: 07/23/17 22:14 Dose: 40 mg Sodium Chloride (Saline Flush) 10 ml FLUSH ASDIRECTED PRN PRN Reason: Keep Vein Open Last Admin: 07/21/17 20:07 Dose: 10 ml Sodium Chloride (Saline Flush) 2.5 ml FLUSH ASDIRECTED PRN PRN Reason: Keep Vein Open Last Admin: 07/21/17 20:07 Dose: 2.5 ml Sodium Chloride (Saline Flush) 10 ml FLUSH ASDIRECTED PRN PRN Reason: Keep Vein Open Sodium Chloride (Saline Flush) 2.5 ml FLUSH ASDIRECTED PRN PRN Reason: Keep Vein Open Sodium Chloride (Saline Flush) 10 ml FLUSH ASDIRECTED PRN PRN Reason: Keep Vein Open Sodium Chloride (Saline Flush) 2.5 ml FLUSH ASDIRECTED PRN PRN Reason: Keep Vein Open Vitamin E (Vitamin E) 400 units PO DAILY [facility] Last Admin: 07/24/17 09:47 Dose: 400 units Discontinued Medications Cephalexin (Keflex) 500 mg PO Q12H [facility] Last Admin: 07/22/17 23:04 Dose: Not Given Enoxaparin Sodium (Lovenox) 30 mg SUBCUT DAILY [facility] Furosemide (Lasix) 40 mg IVPUSH NOW ONE Stop: 07/22/17 17:05 Last Admin: 07/22/17 17:30 Dose: 40 mg Furosemide (Lasix) 40 mg IVPUSH BIDDIURETIC [facility] Last Admin: 07/24/17 07:24 Dose: 40 mg Sodium Chloride (Normal Saline) 1,000 mls @ 125 mls/hr IV STAT [facility] Last Admin: 07/21/17 20:08 Dose: 125 mls/hr Sodium Chloride (Sodium Chloride 0.45%) 1,000 mls @ 75 mls/hr IV ASDIRECTED [facility] Ceftriaxone Sodium/Dextrose 1 (gm/ Premix) 50 mls @ 100 mls/hr IV Q24H [facility] Last Admin: 07/23/17 17:30 Dose: 100 mls/hr Insulin Aspart (Novolog) 0 unit SUBCUT TIDAC [facility] PRN Reason: Protocol Last Admin: 07/22/17 17:08 Dose: Not Given Loperamide HCl (Imodium) 4 mg PO ONETIME ONE Stop: 07/22/17 11:16 Last Admin: 07/22/17 12:13 Dose: 4 mg Morphine Sulfate (Morphine) 2 mg IVPUSH Q2H PRN PRN Reason: Pain (severe 7-10) Stop: 07/22/17 23:17 Potassium Chloride (Klor-Con M20) 40 meq PO Q6H [facility] Stop: 07/24/17 07:46 Last Admin: 07/24/17 07:24 Dose: 40 meq Vitamin E (Vitamin E) 250 units PO DAILY [facility] Last Admin: 07/22/17 12:27 Dose: Not Given - Exam General: Alert, Oriented HEENT: Pupils Equal, Pupils Reactive Neck: Supple, Trachea Midline, No JVD Lungs: Clear to Auscultation, Normal Respiratory Effort Cardiovascular: Regular Rate, Regular Rhythm GI/Abdominal Exam: Normal Bowel Sounds, Soft, Non-Tender Extremities: Pedal Edema (decreased) - Problem List & Annotations (1) Generalized weakness SNOMED Code(s): 72974183 Code(s): R53.1 - WEAKNESS Status: Acute Current Visit: Yes (2) Dependent edema SNOMED Code(s): 091723365 Code(s): R60.9 - EDEMA, UNSPECIFIED Status: Acute Current Visit: No (3) CHF (congestive heart failure) SNOMED Code(s): 93762650 Code(s): I50.9 - HEART FAILURE, UNSPECIFIED Status: Chronic Current Visit : No Qualifiers: Congestive heart failure type: unspecified congestive heart failure type Congestive heart failure chronicity: chronic Qualified Code(s): I50.9 - Heart failure, unspecified (4) Diarrhea SNOMED Code(s): 86793601 Code(s): R19.7 - DIARRHEA, UNSPECIFIED Status: Acute Current Visit: Yes - Problem List Review Problem List Initiated/Reviewed/Updated: Yes - My Orders Last 24 Hours: My Active Orders 07/23/17 15:14 Communication Order [RC] ROUTINE 07/24/17 Lunch BRAT Diet [DIET] 07/25/17 09:00 Furosemide [Lasix] 40 mg PO DAILY - Plan Plan:: A/P generalized weakness fluid overload b/l LE swelling CAD DM Possible UTI diarrhea Plan stool studies, stool for c diff, neg Physical therapy , 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
[2017-07-24] MEDS ORDERED: Furosemide 40 MG/4 ML VIAL IVPUSH ONE (17:53)
[2017-07-24] MEDS: Simvastatin 40 MG Tab PO SCH (21:02)
[2017-07-25 06:28] LABS: CHLORIDE,CL 107 mmol/L (98-110); SODIUM,NA 140 mmol/L (136-146)
[2017-07-25] MEDS: metroNIDAZOLE/Normal Saline 500 MG in Premix Bag 1 BAG IV SCH ×3 (06:29→21:49)
[2017-07-25] MEDS: Insulin Aspart 100 Units/ML 3 ML Pen SUBCUT SCH ×4 (06:42→21:33)
[2017-07-25] MEDS ORDERED: Magnesium Sulfate/Water 4 GM in Premix Bag 1 BAG IV ONE (07:48)
[2017-07-25] MEDS: Vitamin E (dl-alpha-tocopherol acetate) 400 Unit Cap PO SCH (08:03)
[2017-07-25] MEDS: Oxybutynin 5 MG Tab PO SCH (08:04)
[2017-07-25] MEDS: Furosemide 40 MG Tab PO SCH (08:04)
[2017-07-25] MEDS: Aspirin 325 MG Tab PO SCH (08:04)
[2017-07-25] MEDS: Ascorbic Acid 500 MG Tab PO SCH (08:04)
--- NOTE | 2017-07-25 10:18 | PCM.PN ---
- General Info Date of Service: 07/25/17 Admission Dx/Problem (Free Text): Admission Diagnosis/Problem Admission Diagnosis/Problem Weakness Subjective Update: Doing better this morning, but continues to report feeling very weak. "I don't even want to talk sometimes." Denies chest pain, SOB or abdominal pain. Reports still having some loose stools but none overnight. Functional Status: Reports: Pain Controlled, Tolerating Diet, Urinating - Review of Systems General: Reports: Weakness (generalized. ). Denies: Fever Pulmonary: Reports: No Symptoms. Denies: Shortness of Breath, Cough, Sputum Cardiovascular: Reports: Edema (MORENA wraps in place). Denies: Chest Pain Gastrointestinal: Reports: Diarrhea (but none overnight.). Denies: Abdominal Pain, Nausea, Vomiting Genitourinary: Reports: No Symptoms. Denies: Dysuria, Frequency, Burning Neurological: Denies: No Symptoms, Confusion Psychiatric: Reports: No Symptoms. Denies: Confusion - Patient Data Vitals - Most Recent: Last Vital Signs Temp 98.5 F 07/25/17 08:00 Pulse 99 07/25/17 08:00 Resp 16 07/25/17 08:00 BP 110/47 L 07/25/17 08:00 Pulse Ox 95 07/25/17 08:00 Weight - Most Recent: 94.4 kg I&O - Last 24 Hours: Intake & Output 07/24/17 07/25/17 07/25/17 22:59 06:59 14:59 Intake Total 750 390 100 Output Total 850 1525 Balance -100 -1135 100 Lab Results Last 24 Hours: Laboratory Results - last 24 hr 07/24/17 07/24/17 07/24/17 Range/Units 11:16 17:30 21:05 WBC (4.0-11.0) K/uL RBC (4.50-5.90) M/uL Hgb (13.0-17.0) g/dL Hct (38.0-50.0) % MCV (80.0-98.0) fL MCH (27.0-32.0) pg MCHC (31.0-37.0) g/dL RDW Std Deviation (28.0-62.0) fl RDW Coeff of Damion (11.0-15.0) % Plt Count (150-400) K/uL MPV (7.40-12.00) fL Neut % (Auto) (48.0-80.0) % Lymph % (Auto) (16.0-40.0) % Keith % (Auto) (0.0-15.0) % Eos % (Auto) (0.0-7.0) % Baso % (Auto) (0.0-1.5) % Neut # (Auto) (1.4-5.7) K/uL Lymph # (Auto) (0.6-2.4) K/uL Keith # (Auto) (0.0-0.8) K/uL Eos # (Auto) (0.0-0.7) K/uL Baso # (Auto) (0.0-0.1) K/uL Nucleated RBC % /100WBC Nucleated RBCs # K/uL Sodium (136-146) mmol/L Potassium (3.5-5.1) mmol/L Chloride (98-110) mmol/L Carbon Dioxide (21-31) mmol/L BUN (6.0-23.0) mg/dL Creatinine (0.6-1.5) mg/dL Est Cr Clr Drug Dosing mL/min Estimated GFR (MDRD) ml/min Glucose (60-110) mg/dL POC Glucose 160 H 204 H 133 H (60-110) mg/dL Calcium (8.8-10.8) mg/dL Magnesium (1.5-2.3) mEq/L 07/25/17 07/25/17 07/25/17 Range/Units 05:15 05:15 06:21 WBC 8.61 (4.0-11.0) K/uL RBC 3.96 L (4.50-5.90) M/uL Hgb 9.9 L (13.0-17.0) g/dL Hct 31.6 L (38.0-50.0) % MCV 79.8 L (80.0-98.0) fL MCH 25.0 L (27.0-32.0) pg MCHC 31.3 (31.0-37.0) g/dL RDW Std Deviation 48.0 (28.0-62.0) fl RDW Coeff of Damion 17 H (11.0-15.0) % Plt Count 358 (150-400) K/uL MPV 9.30 (7.40-12.00) fL Neut % (Auto) 81.9 H (48.0-80.0) % Lymph % (Auto) 12.3 L (16.0-40.0) % Keith % (Auto) 4.4 (0.0-15.0) % Eos % (Auto) 1.3 (0.0-7.0) % Baso % (Auto) 0.1 (0.0-1.5) % Neut # (Auto) 7.1 H (1.4-5.7) K/uL Lymph # (Auto) 1.1 (0.6-2.4) K/uL Keith # (Auto) 0.4 (0.0-0.8) K/uL Eos # (Auto) 0.1 (0.0-0.7) K/uL Baso # (Auto) 0.0 (0.0-0.1) K/uL Nucleated RBC % 0.0 /100WBC Nucleated RBCs # 0 K/uL Sodium 140 (136-146) mmol/L Potassium 3.7 (3.5-5.1) mmol/L Chloride 107 (98-110) mmol/L Carbon Dioxide 25 (21-31) mmol/L BUN 9 (6.0-23.0) mg/dL Creatinine 0.6 (0.6-1.5) mg/dL Est Cr Clr Drug Dosing 96.12 mL/min Estimated GFR (MDRD) > 60.0 ml/min Glucose 124 H (60-110) mg/dL POC Glucose 132 H (60-110) mg/dL Calcium 7.6 L (8.8-10.8) mg/dL Magnesium 1.1 L (1.5-2.3) mEq/L Med Orders - Current: Current Medications Acetaminophen (Tylenol) 650 mg PO Q4H PRN PRN Reason: Pain (Mild 1-3)/fever Last Admin: 07/24/17 01:53 Dose: 650 mg Ascorbic Acid (Vitamin C) 500 mg PO DAILY [facility] Last Admin: 07/25/17 08:04 Dose: 500 mg Aspirin (Aspirin) 325 mg PO DAILY [facility] Last Admin: 07/25/17 08:04 Dose: 325 mg Furosemide (Lasix) 40 mg PO DAILY [facility] Last Admin: 07/25/17 08:04 Dose: 40 mg Hydrochlorothiazide (Hydrochlorothiazide) 25 mg PO DAILY [facility] Last Admin: 07/24/17 12:11 Dose: Not Given Metronidazole 500 mg/ Premix 100 mls @ 100 mls/hr IV TID [facility] Last Infusion: 07/25/17 07:30 Dose: Infused Insulin Aspart (Novolog) 0 unit SUBCUT ACBED [facility] PRN Reason: Protocol Last Admin: 07/25/17 06:42 Dose: Not Given Losartan Potassium (Cozaar) 25 mg PO DAILY [facility] Last Admin: 07/24/17 12:11 Dose: Not Given Metoprolol Succinate (Toprol Xl) 50 mg PO BID [facility] Last Admin: 07/24/17 21:01 Dose: Not Given Oxybutynin Chloride (Oxybutynin) 5 mg PO DAILY [facility] Last Admin: 07/25/17 08:04 Dose: 5 mg Simvastatin (Zocor) 40 mg PO BEDTIME [facility] Last Admin: 07/24/17 21:02 Dose: 40 mg Sodium Chloride (Saline Flush) 10 ml FLUSH ASDIRECTED PRN PRN Reason: Keep Vein Open Sodium Chloride (Saline Flush) 2.5 ml FLUSH ASDIRECTED PRN PRN Reason: Keep Vein Open Vitamin E (Vitamin E) 400 units PO DAILY [facility] Last Admin: 07/25/17 08:03 Dose: 400 units Discontinued Medications Cephalexin (Keflex) 500 mg PO Q12H [facility] Last Admin: 07/22/17 23:04 Dose: Not Given Enoxaparin Sodium (Lovenox) 30 mg SUBCUT DAILY [facility] Furosemide (Lasix) 40 mg IVPUSH NOW ONE Stop: 07/22/17 17:05 Last Admin: 07/22/17 17:30 Dose: 40 mg Furosemide (Lasix) 40 mg IVPUSH BIDDIURETIC [facility] Last Admin: 07/24/17 07:24 Dose: 40 mg Furosemide (Lasix) 40 mg IVPUSH NOW ONE Stop: 07/24/17 17:54 Last Admin: 07/24/17 18:03 Dose: 40 mg Sodium Chloride (Normal Saline) 1,000 mls @ 125 mls/hr IV STAT [facility] Last Admin: 07/21/17 20:08 Dose: 125 mls/hr Sodium Chloride (Sodium Chloride 0.45%) 1,000 mls @ 75 mls/hr IV ASDIRECTED [facility] Ceftriaxone Sodium/Dextrose 1 (gm/ Premix) 50 mls @ 100 mls/hr IV Q24H [facility] Last Admin: 07/23/17 17:30 Dose: 100 mls/hr Magnesium Sulfate 4 gm/ Premix 100 mls @ 50 mls/hr IV ONETIME ONE Stop: 07/25/17 09:47 Last Admin: 07/25/17 08:03 Dose: 50 mls/hr Insulin Aspart (Novolog) 0 unit SUBCUT TIDAC [facility] PRN Reason: Protocol Last Admin: 07/22/17 17:08 Dose: Not Given Loperamide HCl (Imodium) 4 mg PO ONETIME ONE Stop: 07/22/17 11:16 Last Admin: 07/22/17 12:13 Dose: 4 mg Morphine Sulfate (Morphine) 2 mg IVPUSH Q2H PRN PRN Reason: Pain (severe 7-10) Stop: 07/22/17 23:17 Potassium Chloride (Klor-Con M20) 40 meq PO Q6H [facility] Stop: 07/24/17 07:46 Last Admin: 07/24/17 07:24 Dose: 40 meq Sodium Chloride (Saline Flush) 10 ml FLUSH ASDIRECTED PRN PRN Reason: Keep Vein Open Last Admin: 07/21/17 20:07 Dose: 10 ml Sodium Chloride (Saline Flush) 2.5 ml FLUSH ASDIRECTED PRN PRN Reason: Keep Vein Open Last Admin: 07/21/17 20:07 Dose: 2.5 ml Vitamin E (Vitamin E) 250 units PO DAILY [facility] Last Admin: 07/22/17 12:27 Dose: Not Given - Exam General: Alert, Oriented, Cooperative, No Acute Distress Neck: Supple Lungs: Clear to Auscultation, Normal Respiratory Effort Cardiovascular: Regular Rate, Regular Rhythm, No Murmurs GI/Abdominal Exam: Normal Bowel Sounds, Soft, Non-Tender, No Organomegaly, No Distention, No Abnormal Bruit, No Mass, Pelvis Stable Extremities: Normal Range of Motion, Non-Tender, Pedal Edema (+2 pitting edema to BLE. MORENA wraps in place. ) Neurological: No New Focal Deficit Psy/Mental Status: Alert, Normal Affect, Normal Mood - Problem List & Annotations (1) Diarrhea SNOMED Code(s): 01765111 Code(s): R19.7 - DIARRHEA, UNSPECIFIED Status: Acute Current Visit: Yes Qualifiers: Diarrhea type: unspecified type Qualified Code(s): R19.7 - Diarrhea, unspecified (2) Generalized weakness SNOMED Code(s): 97253969 Code(s): R53.1 - WEAKNESS Status: Acute Current Visit: Yes (3) CHF (congestive heart failure) SNOMED Code(s): 12567144 Code(s): I50.9 - HEART FAILURE, UNSPECIFIED Status: Acute Current Visit: No Qualifiers: Congestive heart failure type: unspecified congestive heart failure type Congestive heart failure chronicity: acute on chronic Qualified Code(s): I50.9 - Heart failure, unspecified (4) Dependent edema SNOMED Code(s): 261002147 Code(s): R60.9 - EDEMA, UNSPECIFIED Status: Acute Current Visit: No (5) DM type 2 (diabetes mellitus, type 2) SNOMED Code(s): 34171139 Code(s): E11.9 - TYPE 2 DIABETES MELLITUS WITHOUT COMPLICATIONS Status: Chronic Current Visit: No Qualifiers: Diabetes mellitus complication status: without complication Diabetes mellitus detention insulin use: without termite control service representative use Qualified Code(s): E11.9 - Type 2 diabetes mellitus without complications (6) HTN (hypertension) SNOMED Code(s): 88459479 Code(s): I10 - ESSENTIAL (PRIMARY) HYPERTENSION Status: Chronic Current Visit: No Qualifiers: Hypertension type: essential hypertension Qualified Code(s): I10 - Essential (primary) hypertension (7) Hx of CABG SNOMED Code(s): 466890971 Code(s): Z95.1 - PRESENCE OF AORTOCORONARY BYPASS GRAFT Status: Chronic Current Visit: No (8) Irregular cardiac rhythm SNOMED Code(s): 765868817, 783973299 Code(s): I49.9 - CARDIAC ARRHYTHMIA, UNSPECIFIED Status: Chronic Current Visit: No (9) Hx of diverticulitis of colon SNOMED Code(s): 718156700788067 Code(s): Z87.19 - PERSONAL HISTORY OF OTHER DISEASES OF THE DIGESTIVE SYSTEM Status: Chronic Current Visit: Yes - Problem List Review Problem List Initiated/Reviewed/Updated: Yes - Plan Plan:: This 86 year old male admitted with generalized weakness and BLE edema 1. Generalized weakness: PT signed off but recommended [facility] for rehabilitation due to generalized weakness. Encourage up to chair with each meal and ambulation in hallway. [facility]ugher filling out [facility] application today for short term stay. 2. BLE edema/ CHF acute on chronic: Improving. Was recently treated here and transferred to [place], likely became fluid overload from IV hydration, was noted to be dehydrated here. Given Lasix IV, switch to PO today. Edema improving. No SOB. 1.5 L Fluid restriction, strict I/O and daily weights. Replacing Magnesium today 4 gm IV. 3. HTN: BP running 100/60s today. Holding BP medications today, asymptomatic. Will monitor. 4. CAD: Stable. Continue ASA. 5. DM type 2: Well controlled, BS 130-200s. Continue Novolog SSI. 6. Diarrhea: Improved. Cdiff negative. No BM overnight. Immodium given yesterday. Continue Flagyl for now. VTE prophylaxis: Heparin Q12hr Dispo: Pending placement to [facility] for short term rehabilitation.
[2017-07-25] MEDS ORDERED: Bismuth Subsalicylate 262 MG/15 ML Susp 236 ML Bottle PO PRN (10:28)
[2017-07-25] MEDS: Losartan 50 MG Tab PO SCH (10:35)
[2017-07-25] MEDS: Hydrochlorothiazide 25 MG Tab PO SCH (10:35)
[2017-07-25] MEDS: Metoprolol Succinate 50 MG Tab.ER PO SCH ×2 (10:35→21:39)
[2017-07-25] MEDS: Heparin Sodium 5,000 Units/ML Vial SUBCUT SCH ×2 (14:31→21:32)
[2017-07-25] MEDS: Simvastatin 40 MG Tab PO SCH (21:39)
[2017-07-26] MEDS: metroNIDAZOLE/Normal Saline 500 MG in Premix Bag 1 BAG IV SCH ×2 (05:15→13:46)
[2017-07-26 05:48] LABS: CHLORIDE,CL 107 mmol/L (98-110); SODIUM,NA 139 mmol/L (136-146)
[2017-07-26] MEDS: Insulin Aspart 100 Units/ML 3 ML Pen SUBCUT SCH ×2 (06:38→12:10)
[2017-07-26] MEDS ORDERED: Potassium Chloride 20 MEQ Tab.ER PO ONE (07:33)
[2017-07-26] MEDS ORDERED: Magnesium Sulfate/Water 2 GM in Premix Bag 1 BAG IV ONE (07:34)
[2017-07-26] MEDS: Vitamin E (dl-alpha-tocopherol acetate) 400 Unit Cap PO SCH (08:12)
[2017-07-26] MEDS: Oxybutynin 5 MG Tab PO SCH (08:12)
[2017-07-26] MEDS: Heparin Sodium 5,000 Units/ML Vial SUBCUT SCH (08:12)
[2017-07-26] MEDS: Aspirin 325 MG Tab PO SCH (08:12)
[2017-07-26] MEDS: Hydrochlorothiazide 25 MG Tab PO SCH (08:13)
[2017-07-26] MEDS: Ascorbic Acid 500 MG Tab PO SCH (08:13)
[2017-07-26] MEDS: Furosemide 40 MG Tab PO SCH (08:13)
[2017-07-26] MEDS: Metoprolol Succinate 50 MG Tab.ER PO SCH (08:24)
[2017-07-26] MEDS: Losartan 50 MG Tab PO SCH (08:24)
--- NOTE | 2017-07-26 09:07 | PCM.DCSUM1 ---
Discharge Summary - Hospital Course Brief History: This 86 year old man with pmh of CAD s/p CABG, DM, CHF presented to ER after he was discharged from [facility] where he was treated for diverticulitis. Patient complained of diarrhea, watery few episodes and bilateral leg swelling. He used to wear compression stockings , but since he was hospitalized he did not wear them. He also has weight gain from 212 lbs to 223 lbs. Patient was referred here upon discharged from [place], to have Physical therapy due to deconditioning, but he feels he is too weak to care for himself safely at home. In ED head CT negative, CXR showed some L lower lobe atelectasis, but otherwise negative. No leukocytosis noted, afebrile. BMP WNL, Cl elevated 111 and BS 170s. UA revealed possible UTI. He was admitted for UTI, generalized weakness and bilateral lower leg edema. - Discharge Data Discharge Date: 07/26/17 Discharge Disposition: DC/Tfer to SNF 03 Condition: Good - Discharge Diagnosis/Problem(s) (1) Diarrhea SNOMED Code(s): 76078549 ICD Code: R19.7 - DIARRHEA, UNSPECIFIED Status: Acute Current Visit: Yes Qualifiers: Diarrhea type: unspecified type Qualified Code(s): R19.7 - Diarrhea, unspecified (2) Generalized weakness SNOMED Code(s): 97805719 ICD Code: R53.1 - WEAKNESS Status: Acute Current Visit: Yes (3) CHF (congestive heart failure) SNOMED Code(s): 55155439 ICD Code: I50.9 - HEART FAILURE, UNSPECIFIED Status: Acute Current Visit : No Qualifiers: Congestive heart failure type: unspecified congestive heart failure type Congestive heart failure chronicity: acute on chronic Qualified Code(s): I50.9 - Heart failure, unspecified (4) Dependent edema SNOMED Code(s): 228242996 ICD Code: R60.9 - EDEMA, UNSPECIFIED Status: Acute Current Visit: No (5) DM type 2 (diabetes mellitus, type 2) SNOMED Code(s): 59532048 ICD Code: E11.9 - TYPE 2 DIABETES MELLITUS WITHOUT COMPLICATIONS Status: Chronic Current Visit: No Qualifiers: Diabetes mellitus complication status: without complication Diabetes mellitus long term care phlebotomist insulin use: without long-term use Qualified Code(s): E11.9 - Type 2 diabetes mellitus without complications (6) HTN (hypertension) SNOMED Code(s): 36668636 ICD Code: I10 - ESSENTIAL (PRIMARY) HYPERTENSION Status: Chronic Current Visit: No Qualifiers: Hypertension type: essential hypertension Qualified Code(s): I10 - Essential (primary) hypertension (7) Hx of CABG SNOMED Code(s): 025028910 ICD Code: Z95.1 - PRESENCE OF AORTOCORONARY BYPASS GRAFT Status: Chronic Current Visit: No (8) Irregular cardiac rhythm SNOMED Code(s): 713924633, 274803363 ICD Code: I49.9 - CARDIAC ARRHYTHMIA, UNSPECIFIED Status: Chronic Current Visit: No (9) Hx of diverticulitis of colon SNOMED Code(s): 233405622976427 ICD Code: Z87.19 - PERSONAL HISTORY OF OTHER DISEASES OF THE DIGESTIVE SYSTEM Status: Chronic Current Visit: Yes - Patient Instructions Diet: Heart Healthy Diet, Low Sodium Activity: As Tolerated Showering/Bathing: May Shower Notify Provider of: Fever, Increased Pain, Swelling and Redness, Drainage, Nausea and/or Vomiting Other/Special Instructions: PT/OT/ST to evaluate and treat. Compression stockings on bilateral lower extremities during the day, off at night. Blood sugar checks in am dialy - Discharge Plan Home Medications: Home Meds Acetaminophen [Tylenol] 650 mg PO Q6HR PRN 06/29/17 [History] Ascorbic Acid [Vitamin C] 500 mg PO DAILY 06/29/17 [History] Aspirin 325 mg PO DAILY 06/29/17 [History] Hydrochlorothiazide 25 mg PO DAILY 06/29/17 [History] Losartan [Cozaar] 25 mg PO DAILY 06/29/17 [History] Metoprolol Succinate [Toprol XL] 50 mg PO BID 06/29/17 [History] Oxybutynin 5 mg PO DAILY 06/29/17 [History] Simvastatin [Zocor] 40 mg PO BEDTIME 06/29/17 [History] Vitamin E Mixed [Vitamin E] 250 units PO DAILY 06/29/17 [History] glipiZIDE [Glucotrol XL] 5 mg PO BID 06/29/17 [History] metFORMIN [Glucophage] 500 mg PO BID 06/29/17 [History] Ibuprofen 200 mg PO TID PRN #30 07/26/17 [Rx] Patient Handouts: Diarrhea, Adult, Diverticulitis, [id number], Ibuprofen tablets and capsules, Weakness, [id number] Referrals: Eliel Trent MD [Physician] - (follow up on [facility] rounds) - Discharge Summary/Plan Comment DC Time >30 min.: No Discharge Summary/Plan Comment: Admission diagnoses: Generalized weakness UTI Bilateral lower leg Edema diarrhea Hx of HTN, CAD, CHF, and DM Discharge Diagnoses: Generalized weakness BLE edema, much improved Recent diarrhea-noninfectious, resolved. Hx of CAD, DM, CHF, HTN Massiel was admitted and treated with Lasix to [facility] due to BLE edema, along with elevation and compression stockings. Edema improved and Lasix was stopped. BLE continued to improve, will encourage him to keep compression stockings on. He was initially treated with Rocephin for suspected UTI, but UC returned with mixed jonny <1000. PT did see him and felt he was independent with transfers but recommended rehabilitation for deconditioning at [facility] in the short term. He will be transferred to [facility] Today for PT/OT evaluation and treatment with hopes of returning home. He is to continue all home medications and monitoring BS in the mornings. I spoke with Dr. Eliel Trent, who will assume care at [facility]. He is to return to clinic or ED if concerns should arise. - General Info Date of Service: 07/26/17 Admission Dx/Problem (Free Text: Admission Diagnosis/Problem Admission Diagnosis/Problem Weakness Subjective Update: Doing well today. Reports he is feeling much better than when he came in but continues to report some generalized weakness. Anxious about transfer to [facility]. BLE much better today will place compression stockings and DC MORENA wraps. No chest pain or SOB. Stools are soft, no further diarrhea. Functional Status: Reports: Pain Controlled, Tolerating Diet, Ambulating, Urinating - Review of Systems General: Reports: Weakness (generalized.). Denies: Fever, Malaise HEENT: Reports: No Symptoms. Denies: Sore Throat, Rhinitis Pulmonary: Denies: Shortness of Breath, Cough, Sputum Cardiovascular: Reports: Edema (greatly improved to BLE). Denies: Chest Pain Gastrointestinal: Reports: No Symptoms. Denies: Abdominal Pain, Nausea, Vomiting Musculoskeletal: Reports: No Symptoms. Denies: Neck Pain Psychiatric: Reports: No Symptoms - Patient Data Vitals - Most Recent: Last Vital Signs Temp 97.7 F 07/26/17 08:00 Pulse 93 07/26/17 08:24 Resp 18 07/26/17 08:00 BP 101/56 L 07/26/17 08:24 Pulse Ox 95 07/26/17 08:00 Weight - Most Recent: 91 kg I&O - Last 24 hours: Intake & Output 07/25/17 07/26/17 07/26/17 22:59 06:59 14:59 Intake Total 720 200 Output Total 850 200 Balance -130 0 Lab Results - Last 24 hrs: Laboratory Results - last 24 hr 07/25/17 07/25/17 07/25/17 Range/Units 10:53 16:35 21:17 WBC (4.0-11.0) K/uL RBC (4.50-5.90) M/uL Hgb (13.0-17.0) g/dL Hct (38.0-50.0) % MCV (80.0-98.0) fL MCH (27.0-32.0) pg MCHC (31.0-37.0) g/dL RDW Std Deviation (28.0-62.0) fl RDW Coeff of Damion (11.0-15.0) % Plt Count (150-400) K/uL MPV (7.40-12.00) fL Neut % (Auto) (48.0-80.0) % Lymph % (Auto) (16.0-40.0) % [place] % (Auto) (0.0-15.0) % Eos % (Auto) (0.0-7.0) % Baso % (Auto) (0.0-1.5) % Neut # (Auto) (1.4-5.7) K/uL Lymph # (Auto) (0.6-2.4) K/uL [place] # (Auto) (0.0-0.8) K/uL Eos # (Auto) (0.0-0.7) K/uL Baso # (Auto) (0.0-0.1) K/uL Nucleated RBC % /100WBC Nucleated RBCs # K/uL Sodium (136-146) mmol/L Potassium (3.5-5.1) mmol/L Chloride (98-110) mmol/L Carbon Dioxide (21-31) mmol/L BUN (6.0-23.0) mg/dL Creatinine (0.6-1.5) mg/dL Est Cr Clr Drug Dosing mL/min Estimated GFR (MDRD) ml/min Glucose (60-110) mg/dL POC Glucose 290 H 157 H 170 H (60-110) mg/dL Calcium (8.8-10.8) mg/dL Magnesium (1.5-2.3) mEq/L 07/26/17 07/26/17 07/26/17 Range/Units 04:44 04:44 04:44 WBC 7.26 (4.0-11.0) K/uL RBC 3.91 L (4.50-5.90) M/uL Hgb 9.7 L (13.0-17.0) g/dL Hct 31.3 L (38.0-50.0) % MCV 80.1 (80.0-98.0) fL MCH 24.8 L (27.0-32.0) pg MCHC 31.0 (31.0-37.0) g/dL RDW Std Deviation 48.4 (28.0-62.0) fl RDW Coeff of Damion 17 H (11.0-15.0) % Plt Count 368 (150-400) K/uL MPV 9.40 (7.40-12.00) fL Neut % (Auto) 78.4 (48.0-80.0) % Lymph % (Auto) 15.4 L (16.0-40.0) % [place] % (Auto) 5.0 (0.0-15.0) % Eos % (Auto) 1.2 (0.0-7.0) % Baso % (Auto) 0.0 (0.0-1.5) % Neut # (Auto) 5.7 (1.4-5.7) K/uL Lymph # (Auto) 1.1 (0.6-2.4) K/uL [place] # (Auto) 0.4 (0.0-0.8) K/uL Eos # (Auto) 0.1 (0.0-0.7) K/uL Baso # (Auto) 0.0 (0.0-0.1) K/uL Nucleated RBC % 0.0 /100WBC Nucleated RBCs # 0 K/uL Sodium 139 (136-146) mmol/L Potassium 3.4 L (3.5-5.1) mmol/L Chloride 107 (98-110) mmol/L Carbon Dioxide 25 (21-31) mmol/L BUN 7 (6.0-23.0) mg/dL Creatinine 0.6 (0.6-1.5) mg/dL Est Cr Clr Drug Dosing 96.12 mL/min Estimated GFR (MDRD) > 60.0 ml/min Glucose 122 H (60-110) mg/dL POC Glucose (60-110) mg/dL Calcium 7.3 L (8.8-10.8) mg/dL Magnesium 1.5 (1.5-2.3) mEq/L 07/26/17 Range/Units 05:35 WBC (4.0-11.0) K/uL RBC (4.50-5.90) M/uL Hgb (13.0-17.0) g/dL Hct (38.0-50.0) % MCV (80.0-98.0) fL MCH (27.0-32.0) pg MCHC (31.0-37.0) g/dL RDW Std Deviation (28.0-62.0) fl RDW Coeff of Damion (11.0-15.0) % Plt Count (150-400) K/uL MPV (7.40-12.00) fL Neut % (Auto) (48.0-80.0) % Lymph % (Auto) (16.0-40.0) % [place] % (Auto) (0.0-15.0) % Eos % (Auto) (0.0-7.0) % Baso % (Auto) (0.0-1.5) % Neut # (Auto) (1.4-5.7) K/uL Lymph # (Auto) (0.6-2.4) K/uL [place] # (Auto) (0.0-0.8) K/uL Eos # (Auto) (0.0-0.7) K/uL Baso # (Auto) (0.0-0.1) K/uL Nucleated RBC % /100WBC Nucleated RBCs # K/uL Sodium (136-146) mmol/L Potassium (3.5-5.1) mmol/L Chloride (98-110) mmol/L Carbon Dioxide (21-31) mmol/L BUN (6.0-23.0) mg/dL Creatinine (0.6-1.5) mg/dL Est Cr Clr Drug Dosing mL/min Estimated GFR (MDRD) ml/min Glucose (60-110) mg/dL POC Glucose 116 H (60-110) mg/dL Calcium (8.8-10.8) mg/dL Magnesium (1.5-2.3) mEq/L Med Orders - Current: Current Medications Acetaminophen (Tylenol) 650 mg PO Q4H PRN PRN Reason: Pain (Mild 1-3)/fever Last Admin: 07/24/17 01:53 Dose: 650 mg Ascorbic Acid (Vitamin C) 500 mg PO DAILY [facility] Last Admin: 07/26/17 08:13 Dose: 500 mg Aspirin (Aspirin) 325 mg PO DAILY [facility] Last Admin: 07/26/17 08:12 Dose: 325 mg Bismuth Subsalicylate (Pepto Bismol) 30 ml PO Q6H PRN PRN Reason: Diarrhea Furosemide (Lasix) 40 mg PO DAILY [facility] Last Admin: 07/26/17 08:13 Dose: 40 mg Heparin Sodium (Porcine) (Heparin Sodium) 5,000 units SUBCUT Q12HR [facility] Last Admin: 07/26/17 08:12 Dose: 5,000 units Hydrochlorothiazide (Hydrochlorothiazide) 25 mg PO DAILY [facility] Last Admin: 07/26/17 08:13 Dose: 25 mg Metronidazole 500 mg/ Premix 100 mls @ 100 mls/hr IV TID [facility] Last Admin: 07/26/17 05:15 Dose: 100 mls/hr Insulin Aspart (Novolog) 0 unit SUBCUT ACBED [facility] PRN Reason: Protocol Last Admin: 07/26/17 06:38 Dose: Not Given Losartan Potassium (Cozaar) 25 mg PO DAILY [facility] Last Admin: 07/26/17 08:24 Dose: Not Given Metoprolol Succinate (Toprol Xl) 50 mg PO BID [facility] Last Admin: 07/26/17 08:24 Dose: Not Given Oxybutynin Chloride (Oxybutynin) 5 mg PO DAILY [facility] Last Admin: 07/26/17 08:12 Dose: 5 mg Simvastatin (Zocor) 40 mg PO BEDTIME [facility] Last Admin: 07/25/17 21:39 Dose: 40 mg Sodium Chloride (Saline Flush) 10 ml FLUSH ASDIRECTED PRN PRN Reason: Keep Vein Open Sodium Chloride (Saline Flush) 2.5 ml FLUSH ASDIRECTED PRN PRN Reason: Keep Vein Open Vitamin E (Vitamin E) 400 units PO DAILY [facility] Last Admin: 07/26/17 08:12 Dose: 400 units Discontinued Medications Cephalexin (Keflex) 500 mg PO Q12H [facility] Last Admin: 07/22/17 23:04 Dose: Not Given Enoxaparin Sodium (Lovenox) 30 mg SUBCUT DAILY [facility] Furosemide (Lasix) 40 mg IVPUSH NOW ONE Stop: 07/22/17 17:05 Last Admin: 07/22/17 17:30 Dose: 40 mg Furosemide (Lasix) 40 mg IVPUSH BIDDIURETIC [facility] Last Admin: 07/24/17 07:24 Dose: 40 mg Furosemide (Lasix) 40 mg IVPUSH NOW ONE Stop: 07/24/17 17:54 Last Admin: 07/24/17 18:03 Dose: 40 mg Sodium Chloride (Normal Saline) 1,000 mls @ 125 mls/hr IV STAT [facility] Last Admin: 07/21/17 20:08 Dose: 125 mls/hr Sodium Chloride (Sodium Chloride 0.45%) 1,000 mls @ 75 mls/hr IV ASDIRECTED NADINE Ceftriaxone Sodium/Dextrose 1 (gm/ Premix) 50 mls @ 100 mls/hr IV Q24H [facility] Last Admin: 07/23/17 17:30 Dose: 100 mls/hr Magnesium Sulfate 4 gm/ Premix 100 mls @ 50 mls/hr IV ONETIME ONE Stop: 07/25/17 09:47 Last Admin: 07/25/17 08:03 Dose: 50 mls/hr Magnesium Sulfate 2 gm/ Premix 50 mls @ 50 mls/hr IV ONETIME ONE Stop: 07/26/17 08:33 Last Admin: 07/26/17 08:06 Dose: 50 mls/hr Insulin Aspart (Novolog) 0 unit SUBCUT TIDAC [facility] PRN Reason: Protocol Last Admin: 07/22/17 17:08 Dose: Not Given Loperamide HCl (Imodium) 4 mg PO ONETIME ONE Stop: 07/22/17 11:16 Last Admin: 07/22/17 12:13 Dose: 4 mg Morphine Sulfate (Morphine) 2 mg IVPUSH Q2H PRN PRN Reason: Pain (severe 7-10) Stop: 07/22/17 23:17 Potassium Chloride (Klor-Con M20) 40 meq PO Q6H [facility] Stop: 07/24/17 07:46 Last Admin: 07/24/17 07:24 Dose: 40 meq Potassium Chloride (Klor-Con M20) 40 meq PO ONETIME ONE Stop: 07/26/17 07:34 Last Admin: 07/26/17 08:12 Dose: 40 meq Sodium Chloride (Saline Flush) 10 ml FLUSH ASDIRECTED PRN PRN Reason: Keep Vein Open Last Admin: 07/21/17 20:07 Dose: 10 ml Sodium Chloride (Saline Flush) 2.5 ml FLUSH ASDIRECTED PRN PRN Reason: Keep Vein Open Last Admin: 07/21/17 20:07 Dose: 2.5 ml Vitamin E (Vitamin E) 250 units PO DAILY [facility] Last Admin: 07/22/17 12:27 Dose: Not Given - Exam Quality Assessment: Denies: Supplemental Oxygen General: Reports: Alert, Oriented, Cooperative, No Acute Distress Lungs: Reports: Clear to Auscultation, Normal Respiratory Effort Cardiovascular: Reports: Regular Rate, Regular Rhythm GI/Abdominal Exam: Normal Bowel Sounds, Soft, Non-Tender, No Organomegaly, No Distention, No Abnormal Bruit, No Mass, Pelvis Stable Back Exam: Reports: Normal Inspection, Full Range of Motion Extremities: Normal Inspection, Normal Range of Motion, Pedal Edema (+1-2 pitting, wrinkling noted, much improved since admission. ) Skin: Reports: Warm, Dry Neurological: Reports: No New Focal Deficit Psy/Mental Status: Reports: Alert, Normal Affect, Normal Mood *Q Meaningful Use (DIS) - VTE *Q VTE Criteria *Q: - Stroke *Q Stroke Criteria *Q: - AMI *Q AMI Criteria *Q:
== END 2017-07-26 14:19 | DRG 948 ==
LOC: MW.ED 19:50 → MW.MS 21:29 → OBSVTOIN 07-22 16:59 → MW.MS 07-22 17:07
PROVIDERS: ADMIT Internal Medicine; ATTEND Internal Medicine
DX: R53.1 Weakness (principal); N39.0 Urinary tract infection, site not specified; R60.9 Edema, unspecified; R19.7 Diarrhea, unspecified; I50.9 Heart failure, unspecified; E11.9 Type 2 diabetes mellitus without complications; E78.00 Pure hypercholesterolemia, unspecified; R01.1 Cardiac murmur, unspecified; I10 Essential (primary) hypertension; Z87.891 Personal history of nicotine dependence; I49.9 Cardiac arrhythmia, unspecified; I25.10 Atherosclerotic heart disease of native coronary artery without angina pectoris; Z95.1 Presence of aortocoronary bypass graft; Z87.19 Personal history of other diseases of the digestive system; Z79.899 Other long term (current) drug therapy; Z88.0 Allergy status to penicillin
CPT/HCPCS: 36415 ×2; 70450; 71010; 80048; 80053; 81001; 82040; 82140; 82962 ×4; 83605; 83880; 84155; 84450; 84460; 84484; 85025; 85027; 85610; 87040 ×2; 87046; 87086; 87324; 87804 ×2; 87899 ×3; 93005; 96360; 96361; 97161; 99285; A9270 ×7; J7040; 83735; 96365; 99283; G0378; J0696; J1644; J1815-GY; J1940; J3475

== ENCOUNTER 2017-10-13 09:10 | Inpatient (IN) | payer MEDICARE, BC, OTHER ==
--- NOTE | 2017-10-13 09:14 | EDM.PDOC ---
ED HPI GENERAL MEDICAL PROBLEM - General Stated Complaint: WEAKNESS Time Seen by Provider: 10/13/17 09:13 Source of Information: Reports: Patient - History of Present Illness INITIAL COMMENTS - FREE TEXT/NARRATIVE: HISTORY AND PHYSICAL: History of present illness: Patient presents with home with generalized weakness He arrives via EMS there initial glucose reading was 59 Recheck here in the emergency room was in the low 30s, patient lethargic D50 was provided from the crash cart after IV access obtained Patient later had episodic hypotension 80s over 50s he remained alert in no distress during this period, recheck several minutes later blood pressure was 100 over 60s However lactate blood cultures were added along with Zosyn although due to allergy conflict Levaquin was substituted [] Review of systems: As per history of present illness and below otherwise all systems reviewed and negative. Past medical history: As per history of present illness and as reviewed below otherwise noncontributory. Surgical history: As per history of present illness and as reviewed below otherwise noncontributory. Social history: No reported history of drug or alcohol abuse. Family history: As per history of present illness and as reviewed below otherwise noncontributory. Physical exam: HEENT: Atraumatic, normocephalic, pupils reactive, negative for conjunctival pallor or scleral icterus, mucous membranes moist, throat clear, neck supple, nontender, trachea midline. Lungs: Clear to auscultation, breath sounds equal bilaterally, chest nontender. Heart: S1S2, regular, negative for clicks, rubs, or JVD. Abdomen: Soft, nondistended, nontender. Negative for masses or hepatosplenomegaly. Negative for costovertebral tenderness. Pelvis: Stable nontender. Genitourinary: Deferred. Rectal: Deferred. Extremities: Atraumatic, negative for cords or calf pain. Neurovascular unremarkable. Neuro: Awake, alert, oriented. Cranial nerves II through XII unremarkable. Cerebellum unremarkable. Motor and sensory unremarkable throughout. Exam nonfocal. Diagnostics: [CBC CMP UA troponin chest 1 view EKG ] Therapeutics: [1 amp D50 from the crash cart yields a glucose of 108 after 20 minutes D 5 1/2 normal at 1 25 mL per hour 500 mL bolus followed by D5 LR with 20 mEq of potassium at 1 25 mL per hour Levaquin 500 mg IV ] Impression: [Hypoglycemia Hypokalemia Episodic hypotension Chronic history of baseline ] Definitive disposition and diagnosis as appropriate pending reevaluation and review of above. - Related Data Allergies Allergy/AdvReac Type Severity Reaction Status Date / Time Penicillins Allergy Hives Verified 10/13/17 09:22 Home Meds: Home Meds Acetaminophen [Tylenol] 650 mg PO Q6HR PRN 06/29/17 [History] Ascorbic Acid [Vitamin C] 500 mg PO DAILY 06/29/17 [History] Aspirin 325 mg PO DAILY 06/29/17 [History] Hydrochlorothiazide 25 mg PO DAILY 06/29/17 [History] Losartan [Cozaar] 25 mg PO DAILY 06/29/17 [History] Metoprolol Succinate [Toprol XL] 50 mg PO BID 06/29/17 [History] Oxybutynin 5 mg PO DAILY 06/29/17 [History] Simvastatin [Zocor] 40 mg PO BEDTIME 06/29/17 [History] Vitamin E Mixed [Vitamin E] 250 units PO DAILY 06/29/17 [History] glipiZIDE [Glucotrol XL] 5 mg PO BID 06/29/17 [History] metFORMIN [Glucophage] 500 mg PO BID 06/29/17 [History] Ibuprofen 200 mg PO TID PRN #30 07/26/17 [Rx] Past Medical History HEENT History: Reports: Cataract Cardiovascular History: Reports: Angina, Arrhythmia, Bypass, CAD, Heart Failure , Heart Murmur, High Cholesterol, Hypertension Respiratory History: Reports: None Gastrointestinal History: Reports: None Other Gastrointestinal History: diverticulitis Genitourinary History: Reports: None Musculoskeletal History: Reports: Arthritis Endocrine/Metabolic History: Reports: Diabetes, Type II Hematologic History: Reports: Anemia - Infectious Disease History Infectious Disease History: Reports: Chicken Pox, Mumps - Past Surgical History Male Surgical History: Reports: Prostatectomy Social & Family History - Family History Family Medical History: Noncontributory - Tobacco Use Smoking Status *Q: Former Smoker Used Tobacco, but Quit: Yes Month Tobacco Last Used: 30 years ago Second Hand Smoke Exposure: No - Caffeine Use Caffeine Use: Reports: Coffee - Recreational Drug Use Recreational Drug Use: No ED ROS GENERAL - Review of Systems Review Of Systems: ROS reveals no pertinent complaints other than HPI. ED EXAM, GENERAL - Physical Exam Exam: See Below Course - Vital Signs Last Recorded V/S: Last Vital Signs Temp 97.9 F 10/13/17 09:15 Pulse 70 10/13/17 09:15 Resp 18 10/13/17 09:15 BP 115/75 10/13/17 09:15 Pulse Ox 97 10/13/17 09:15 - Orders/Labs/Meds Orders: Active Orders 24 hr Category Date Time Status EKG Documentation Completion [RC] STAT Care 10/13/17 09:12 Active CULTURE BLOOD [BC] Stat Lab 10/13/17 10:08 Ordered CULTURE BLOOD [BC] Stat Lab 10/13/17 10:37 Results LACTIC ACID,WHOLE BLOOD [BG] Stat Lab 10/13/17 10:37 Received Dextrose 5%-0.45% NaCl [Dextrose 5%-1/2 NS] 1,000 ml Med 10/13/17 09:15 Active IV ASDIRECTED Dextrose 5%-Lact Ringers w/KCl [D5 LR with 20 mEq KCl] Med 10/13/17 10:15 Active 1,000 ml IV ASDIRECTED Blood Culture x2 Reflex Set [OM.PC] Stat Oth 10/13/17 10:08 Ordered Medication Orders Dextrose/Sodium Chloride (Dextrose 5%-1/2 Ns) 1,000 mls @ 125 mls/hr IV ASDIRECTED NADINE Last Infusion: 10/13/17 10:00 Dose: 999 mls/hr Admin: 10/13/17 09:20 Dose: 125 mls/hr Potassium Cl/Dextrose/Lact Ringer's (D5 Lr With 20 Meq Kcl) 1,000 mls @ 125 mls /hr IV ASDIRECTED NADINE Last Infusion: 10/13/17 10:00 Dose: 999 mls/hr Admin: 10/13/17 09:20 Dose: 125 mls/hr Labs: Laboratory Tests 10/13/17 10/13/17 10/13/17 Range/Units 09:15 09:15 09:37 WBC 6.01 (4.0-11.0) K/uL RBC 4.62 (4.50-5.90) M/uL Hgb 11.6 L (13.0-17.0) g/dL Hct 35.8 L (38.0-50.0) % MCV 77.5 L (80.0-98.0) fL MCH 25.1 L (27.0-32.0) pg MCHC 32.4 (31.0-37.0) g/dL RDW Std Deviation 46.2 (28.0-62.0) fl RDW Coeff of [place] 16 H (11.0-15.0) % Plt Count 329 (150-400) K/uL MPV 8.60 (7.40-12.00) fL Neut % (Auto) 83.3 H (48.0-80.0) % Lymph % (Auto) 12.0 L (16.0-40.0) % [place] % (Auto) 4.5 (0.0-15.0) % Eos % (Auto) 0.2 (0.0-7.0) % Baso % (Auto) 0.0 (0.0-1.5) % Neut # (Auto) 5.0 (1.4-5.7) K/uL Lymph # (Auto) 0.7 (0.6-2.4) K/uL [place] # (Auto) 0.3 (0.0-0.8) K/uL Eos # (Auto) 0.0 (0.0-0.7) K/uL Baso # (Auto) 0.0 (0.0-0.1) K/uL Nucleated RBC % 0.0 /100WBC Nucleated RBCs # 0 K/uL Sodium 137 (136-146) mmol/L Potassium 2.6 L (3.5-5.1) mmol/L Chloride 99 (98-110) mmol/L Carbon Dioxide 28 (21-31) mmol/L BUN 15 (6.0-23.0) mg/dL Creatinine 0.7 (0.6-1.5) mg/dL Est Cr Clr Drug Dosing TNP Estimated GFR (MDRD) > 60.0 ml/min Glucose 49 L (60-110) mg/dL POC Glucose 108 (60-110) mg/dL Calcium 8.4 L (8.8-10.8) mg/dL Total Bilirubin 0.5 (0.1-1.5) mg/dL AST 12 (5-40) IU/L ALT 11 (8-54) IU/L Alkaline Phosphatase 109 (40-150) Troponin I < 0.10 (0.0-0.29) NG/ML Total Protein 6.3 (6.0-8.0) g/dL Albumin 2.6 L (3.4-4.8) g/dL Globulin 3.7 H (2.0-3.5) g/dL Albumin/Globulin Ratio 0.7 L (1.3-2.8) Amylase (10-90) U/L Lipase (7-80) U/L Urine Color Urine Appearance Urine pH (5.0-8.0) Ur Specific [place] (1.001-1.035) Urine Protein (NEGATIVE) mg/dL Urine Glucose (UA) (NEGATIVE) mg/dL Urine Ketones (NEGATIVE) mg/dL Urine Occult Blood (NEGATIVE) Urine Nitrite (NEGATIVE) Urine Bilirubin (NEGATIVE) Urine Urobilinogen (<2.0) EU/dL Ur Leukocyte Esterase (NEGATIVE) Urine RBC (0-2/HPF) Urine WBC (0-5/HPF) Ur Epithelial Cells (NONE-FEW) Amorphous Sediment (NEGATIVE) Urine Bacteria (NEGATIVE) 10/13/17 10/13/17 10/13/17 Range/Units 09:40 09:41 10:06 WBC (4.0-11.0) K/uL RBC (4.50-5.90) M/uL Hgb (13.0-17.0) g/dL Hct (38.0-50.0) % MCV (80.0-98.0) fL MCH (27.0-32.0) pg MCHC (31.0-37.0) g/dL RDW Std Deviation (28.0-62.0) fl RDW Coeff of [place] (11.0-15.0) % Plt Count (150-400) K/uL MPV (7.40-12.00) fL Neut % (Auto) (48.0-80.0) % Lymph % (Auto) (16.0-40.0) % [place] % (Auto) (0.0-15.0) % Eos % (Auto) (0.0-7.0) % Baso % (Auto) (0.0-1.5) % Neut # (Auto) (1.4-5.7) K/uL Lymph # (Auto) (0.6-2.4) K/uL [place] # (Auto) (0.0-0.8) K/uL Eos # (Auto) (0.0-0.7) K/uL Baso # (Auto) (0.0-0.1) K/uL Nucleated RBC % /100WBC Nucleated RBCs # K/uL Sodium (136-146) mmol/L Potassium (3.5-5.1) mmol/L Chloride (98-110) mmol/L Carbon Dioxide (21-31) mmol/L BUN (6.0-23.0) mg/dL Creatinine (0.6-1.5) mg/dL Est Cr Clr Drug Dosing Estimated GFR (MDRD) ml/min Glucose (60-110) mg/dL POC Glucose 128 H (60-110) mg/dL Calcium (8.8-10.8) mg/dL Total Bilirubin (0.1-1.5) mg/dL AST (5-40) IU/L ALT (8-54) IU/L Alkaline Phosphatase (40-150) Troponin I (0.0-0.29) NG/ML Total Protein (6.0-8.0) g/dL Albumin (3.4-4.8) g/dL Globulin (2.0-3.5) g/dL Albumin/Globulin Ratio (1.3-2.8) Amylase 36 (10-90) U/L Lipase 14 (7-80) U/L Urine Color YELLOW Urine Appearance CLEAR Urine pH 6.0 (5.0-8.0) Ur Specific [place] 1.010 (1.001-1.035) Urine Protein NEGATIVE (NEGATIVE) mg/dL Urine Glucose (UA) NEGATIVE (NEGATIVE) mg/dL Urine Ketones NEGATIVE (NEGATIVE) mg/dL Urine Occult Blood NEGATIVE (NEGATIVE) Urine Nitrite NEGATIVE (NEGATIVE) Urine Bilirubin NEGATIVE (NEGATIVE) Urine Urobilinogen 0.2 (<2.0) EU/dL Ur Leukocyte Esterase NEGATIVE (NEGATIVE) Urine RBC NONE SEEN (0-2/HPF) Urine WBC 0-1 (0-5/HPF) Ur Epithelial Cells RARE (NONE-FEW) Amorphous Sediment RARE (NEGATIVE) Urine Bacteria RARE (NEGATIVE) 10/13/17 Range/Units 10:36 WBC (4.0-11.0) K/uL RBC (4.50-5.90) M/uL Hgb (13.0-17.0) g/dL Hct (38.0-50.0) % MCV (80.0-98.0) fL MCH (27.0-32.0) pg MCHC (31.0-37.0) g/dL RDW Std Deviation (28.0-62.0) fl RDW Coeff of [place] (11.0-15.0) % Plt Count (150-400) K/uL MPV (7.40-12.00) fL Neut % (Auto) (48.0-80.0) % Lymph % (Auto) (16.0-40.0) % [place] % (Auto) (0.0-15.0) % Eos % (Auto) (0.0-7.0) % Baso % (Auto) (0.0-1.5) % Neut # (Auto) (1.4-5.7) K/uL Lymph # (Auto) (0.6-2.4) K/uL [place] # (Auto) (0.0-0.8) K/uL Eos # (Auto) (0.0-0.7) K/uL Baso # (Auto) (0.0-0.1) K/uL Nucleated RBC % /100WBC Nucleated RBCs # K/uL Sodium (136-146) mmol/L Potassium (3.5-5.1) mmol/L Chloride (98-110) mmol/L Carbon Dioxide (21-31) mmol/L BUN (6.0-23.0) mg/dL Creatinine (0.6-1.5) mg/dL Est Cr Clr Drug Dosing Estimated GFR (MDRD) ml/min Glucose (60-110) mg/dL POC Glucose 213 H (60-110) mg/dL Calcium (8.8-10.8) mg/dL Total Bilirubin (0.1-1.5) mg/dL AST (5-40) IU/L ALT (8-54) IU/L Alkaline Phosphatase (40-150) Troponin I (0.0-0.29) NG/ML Total Protein (6.0-8.0) g/dL Albumin (3.4-4.8) g/dL Globulin (2.0-3.5) g/dL Albumin/Globulin Ratio (1.3-2.8) Amylase (10-90) U/L Lipase (7-80) U/L Urine Color Urine Appearance Urine pH (5.0-8.0) Ur Specific [place] (1.001-1.035) Urine Protein (NEGATIVE) mg/dL Urine Glucose (UA) (NEGATIVE) mg/dL Urine Ketones (NEGATIVE) mg/dL Urine Occult Blood (NEGATIVE) Urine Nitrite (NEGATIVE) Urine Bilirubin (NEGATIVE) Urine Urobilinogen (<2.0) EU/dL Ur Leukocyte Esterase (NEGATIVE) Urine RBC (0-2/HPF) Urine WBC (0-5/HPF) Ur Epithelial Cells (NONE-FEW) Amorphous Sediment (NEGATIVE) Urine Bacteria (NEGATIVE) Meds: Medications Generic Name Dose Route Start Last Admin Trade Name Freq PRN Reason Stop Dose Admin Dextrose/Sodium Chloride 1,000 mls @ 125 mls/hr 10/13/17 09:15 10/13/17 10:00 Dextrose 5%-1/2 Ns IV 999 mls/hr ASDIRECTED NADINE Infusion Potassium Cl/Dextrose/Lact Ringer's 1,000 mls @ 125 mls/hr 10/13/17 10:15 10:00 D5 Lr With 20 Meq Kcl IV 999 mls/hr ASDIRECTED NADINE Infusion Discontinued Medications Generic Name Dose Route Start Last Admin Trade Name Freq PRN Reason Stop Dose Admin Dextrose/Water 50 ml 10/13/17 09:15 10/13/17 09:15 Dextrose 50% In Water IVPUSH 10/13/17 09:16 50 ml ONETIME ONE Administration Levofloxacin/Dextrose 500 mg/ 100 mls @ 100 mls/hr 10/13/17 10:13 Premix IV 10/13/17 11:12 ONETIME ONE Departure - Departure Time of Disposition: 11:15 Disposition: Refer to Observation Condition: Poor Clinical Impression: Hypoglycemia, Hypokalemia, Hypotension, General weakness - Discharge Information Referrals: PCP,None [Primary Care Provider] - - My Orders Last 24 Hours: My Active Orders 10/13/17 09:12 EKG Documentation Completion [RC] STAT 10/13/17 09:15 Dextrose 5%-0.45% NaCl [Dextrose 5%-1/2 NS] 1,000 ml IV ASDIRECTED 10/13/17 10:08 CULTURE BLOOD [BC] Stat Blood Culture x2 Reflex Set [OM.PC] Stat 10/13/17 10:15 Dextrose 5%-Lact Ringers w/KCl [D5 LR with 20 mEq KCl] 1,000 ml IV ASDIRECTED 10/13/17 10:37 CULTURE BLOOD [BC] Stat LACTIC ACID,WHOLE BLOOD [BG] Stat - Assessment/Plan Last 24 Hours: My Active Orders 10/13/17 09:12 EKG Documentation Completion [RC] STAT 10/13/17 09:15 Dextrose 5%-0.45% NaCl [Dextrose 5%-1/2 NS] 1,000 ml IV ASDIRECTED 10/13/17 10:08 CULTURE BLOOD [BC] Stat Blood Culture x2 Reflex Set [OM.PC] Stat 10/13/17 10:15 Dextrose 5%-Lact Ringers w/KCl [D5 LR with 20 mEq KCl] 1,000 ml IV ASDIRECTED 10/13/17 10:37 CULTURE BLOOD [BC] Stat LACTIC ACID,WHOLE BLOOD [BG] Stat
[2017-10-13] MEDS ORDERED: 50% Dextrose in Water 50 ML Syringe IVPUSH ONE (09:15)
[2017-10-13] MEDS ORDERED: Dextrose 5%-0.45% NaCl 1,000 ML IV SCH (09:15)
[2017-10-13 09:55] LABS: CHLORIDE,CL 99 mmol/L (98-110); SODIUM,NA 137 mmol/L (136-146)
[2017-10-13] MEDS ORDERED: Levofloxacin/Dextrose 5%-Water 500 MG in Premix Bag 1 BAG IV ONE (10:13)
[2017-10-13] MEDS ORDERED: Dextrose 5%-Lact Ringers w/KCl 1,000 ML IV SCH (10:15)
--- NOTE | 2017-10-13 10:32 | CR ---
EXAMINATION: Portable chest radiograph. HISTORY: Shortness of breath. FINDINGS: The trachea is midline. The cardiomediastinal silhouette is within normal limits. No pulmonary infilt rates, effusions or pneumothorax. Median sternotomy wires are noted. Mild chronic interstitial promin ence. Osseous structures appear unremarkable. IMPRESSION: No acute cardiopulmonary process.
[2017-10-13] MEDS ORDERED: Potassium Chloride 20 MEQ Tab.ER PO ONE ×3 (11:55→22:00)
[2017-10-13] MEDS ORDERED: Acetaminophen 325 MG Tab PO PRN (11:55)
[2017-10-13] MEDS ORDERED: Ondansetron 4 MG/2 ML SDV IVPUSH PRN (11:55)
[2017-10-13] MEDS ORDERED: Magnesium Sulfate/Water 4 GM in Premix Bag 1 BAG IV ONE (12:50)
--- NOTE | 2017-10-13 13:05 | PCM.HP ---
H&P History of Present Illness - General Date of Service: 10/13/17 Admit Problem/Dx: Admission Diagnosis/Problem Admission Diagnosis/Problem Hypoglycemia Source of Information: Patient, Family (Daughter Snow at bedside) History Limitations: Reports: No Limitations - History of Present Illness Initial Comments - Free Text/Narative: This 86 year old male with pmh of CABG x 5, HTN, CHF, DM typ 2, and irregular heart rhythm presented to the ED today via EMS with concerns of generalized weakness and lethargy. He reports yesterday he was up ambulating well per self with walker in his home. His daughter came yesterday to stay with him for a week or so due to family having concerns with him not eating and becoming more weak. He reports he ate well during the day yesterday, but ate very little supper and took evening medications per normal, which includes glipizide. He reports he woke up around 3 am unable to get up and feeling very weak everywhere. He had to urinate badly and yelled for his daughter but she had not heard it. She came to his room this morning and he continued to be unable to get up due to weakness. She then called EMS. Massiel denies having diaphoresis, chest pain, or palpitations during the weakness this morning in bed. He denies nausea dizziness or lightheadedness. His daughter reports slurred speech at times this morning, but once blood sugar improved this went away. He currently denies any chest pain, SOB or palpitations. No abdominal pain, urinary symptoms or focal neurological deficits. he reports feeling just overall weak and tired. In the ED WBC 6,010m Hgb 11.6, lactate 2.0, K+ 2.6, CXR negative and UA negative. BS initially with EMS was in the 50s, on arrival BS in 30s, he was lethargic and given ampule of D50. and D51/2 NS IVF were started, BS elevated to 230s. He did have one episode of hypotension, but BP improved with some fluids and correction of hypoglycemia. He was admitted inpatient for hypoglycemia, electrolyte abnormalities, and generalized weakness. Massiel reports he has not been eating much and since a fall with admission in June 2017, he has lost 25-35 lbs, which is noticeable. He is requesting to be back in [place], because he does live alone and feels he is unable to care for himself appropriately anymore and last night scared him. - Related Data Allergies/Adverse Reactions: Allergies Allergy/AdvReac Type Severity Reaction Status Date / Time Penicillins Allergy Hives Verified 10/13/17 09:22 Home Medications: Home Meds Acetaminophen [Tylenol] 650 mg PO Q6HR PRN 06/29/17 [History] Ascorbic Acid [Vitamin C] 500 mg PO DAILY 06/29/17 [History] Aspirin 325 mg PO DAILY 06/29/17 [History] Hydrochlorothiazide 25 mg PO DAILY 06/29/17 [History] Losartan [Cozaar] 25 mg PO DAILY 06/29/17 [History] Oxybutynin 5 mg PO DAILY 06/29/17 [History] Vitamin E Mixed [Vitamin E] 250 units PO DAILY 06/29/17 [History] glipiZIDE [Glucotrol XL] 5 mg PO BID 06/29/17 [History] metFORMIN [Glucophage] 1,000 mg PO DAILY 06/29/17 [History] Ibuprofen 200 mg PO TID PRN #30 07/26/17 [Rx] Ferrous Sulfate 325 mg PO TID 10/13/17 [History] Metoprolol Succinate [Toprol XL] 100 mg PO DAILY 10/13/17 [History] Mirtazapine 15 mg PO BEDTIME 10/13/17 [History] Potassium Chloride [Klor-Con M20] 10 meq PO BID 10/13/17 [History] Simvastatin [Zocor] 40 mg PO BEDTIME 10/13/17 [History] diphenhydrAMINE HCl [Diphenhydramine HCl] 25 mg PO BEDTIME PRN 10/13/17 [History ] Past Medical History HEENT History: Reports: Cataract Cardiovascular History: Reports: Angina, Arrhythmia, Bypass, CAD, Heart Failure , Heart Murmur, High Cholesterol, Hypertension Respiratory History: Reports: SOB (with exertion). Denies: COPD, PE Gastrointestinal History: Reports: Diverticulosis. Denies: GERD, GI Bleed Genitourinary History: Reports: None Musculoskeletal History: Reports: Arthritis Neurological History: Reports: None. Denies: CVA, TIA Endocrine/Metabolic History: Reports: Diabetes, Type II. Denies: Hypothyroidism Hematologic History: Reports: Anemia - Infectious Disease History Infectious Disease History: Reports: Chicken Pox, Mumps - Past Surgical History Cardiovascular Surgical History: Reports: Coronary Artery Bypass (x4 in 2002) Male Surgical History: Reports: Prostatectomy Social & Family History - Family History Family Medical History: Noncontributory - Tobacco Use Smoking Status *Q: Former Smoker Used Tobacco, but Quit: Yes Month Tobacco Last Used: 30 years ago Second Hand Smoke Exposure: No - Caffeine Use Caffeine Use: Reports: Coffee - Alcohol Use Alcohol Use History: No - Recreational Drug Use Recreational Drug Use: No - Living Situation & Occupation Living situation: Reports: Alone Occupation: Retired H&P Review of Systems - Review of Systems: Review Of Systems: See Below General: Reports: Weakness, Decreased Appetite. Denies: Fever, Chills HEENT: Reports: No Symptoms. Denies: Headaches, Hearing Changes, Sinus Congestion, Vertigo Pulmonary: Reports: No Symptoms. Denies: Shortness of Breath, Wheezing, Cough, Sputum, Hemoptysis Cardiovascular: Reports: Edema (BLE, but at baseline, no worsening.). Denies: Chest Pain, Palpitations, Lightheadedness Gastrointestinal: Reports: Diarrhea (takes Immodium BID to help with diarrhea), Flatus. Denies: Black Stool, Bloody Stool, Distension, Nausea, Vomiting Genitourinary: Reports: No Symptoms. Denies: Dysuria, Frequency, Burning, Pain Musculoskeletal: Reports: No Symptoms. Denies: Neck Pain, Joint Pain Skin: Reports: No Symptoms Psychiatric: Reports: No Symptoms Neurological: Reports: Weakness (generalized.). Denies: Confusion Hematologic/Lymphatic: Reports: No Symptoms. Denies: Easy Bleeding Immunologic: Reports: No Symptoms Exam - Exam Exam: See Below - Vital Signs Vital Signs: Last Vital Signs Temp 97.9 F 10/13/17 09:15 Pulse 70 10/13/17 09:15 Resp 18 10/13/17 09:15 BP 115/75 10/13/17 09:15 Pulse Ox 97 10/13/17 09:15 Weight: 83 kg - Exam Quality Assessment: DVT Prophylaxis General: Alert, Oriented, Cooperative HEENT: Conjunctiva Clear, Mucosa Moist & [place], Nares Patent, Posterior Pharynx Clear, Pupils Equal Neck: Supple, Trachea Midline, Full Range of Motion Lungs: Clear to Auscultation, Normal Respiratory Effort Cardiovascular: Regular Rate, Regular Rhythm, Normal S1, Normal S2 GI/Abdominal Exam: Normal Bowel Sounds, Soft, Non-Tender, No Organomegaly, No Distention, No Abnormal Bruit, No Mass, Pelvis Stable Back Exam: Normal Inspection, Full Range of Motion, NT Extremities: Pedal Edema (+3 pitting edema to LLE and +1-2 to RLE, reports L is always worse, they harvested veins for bypass from this leg.) Neurological: Cranial Nerves Intact, Reflexes Equal Bilateral, Strength Equal Bilateral, Normal Speech, Normal Tone. No: Normal Gait (very weak and unable to sit up without extreme effort.) Neuro Extensive - Mental Status: Alert, Oriented x3, Normal Mood/Affect, Normal Cognition, Memory Intact Psychiatric: Alert, Normal Affect, Normal Mood - Patient Data Lab Results Last 24 hrs: Laboratory Results - last 24 hr 10/13/17 Range/Units 12:44 POC Glucose 133 H (60-110) mg/dL Result Diagrams: 10/13/17 09:15 10/13/17 09:15 EKG INTERPRETATION EKG Date: 10/13/17 Rhythm: NSR P-Wave: Present QRS: Wide ST-T: Normal Comparison: No Change EKG Interpretation Comments: Similiar to previous EKGs, with PVCs. *Q Meaningful Use (ADM) - VTE *Q VTE Criteria *Q: - Stroke *Q Stroke Criteria *Q: - AMI *Q AMI Criteria *Q: - Problem List (1) Hypoglycemia SNOMED Code(s): 666545331 ICD Code: E16.2 - HYPOGLYCEMIA, UNSPECIFIED Status: Acute Current Visit: Yes (2) Generalized weakness SNOMED Code(s): 61801325 ICD Code: R53.1 - WEAKNESS Status: Acute Current Visit: Yes (3) Hypomagnesemia SNOMED Code(s): 899515965 ICD Code: E83.42 - HYPOMAGNESEMIA Status: Acute Current Visit: Yes (4) Hypokalemia SNOMED Code(s): 86084849 ICD Code: E87.6 - HYPOKALEMIA Status: Acute Current Visit: Yes (5) Failure to thrive in adult SNOMED Code(s): 044623557 ICD Code: R62.7 - ADULT FAILURE TO THRIVE Status: Acute Current Visit: Yes (6) Protein malnutrition SNOMED Code(s): 310744812 ICD Code: E46 - UNSPECIFIED PROTEIN-CALORIE MALNUTRITION Status: Acute Current Visit: Yes (7) Dependent edema SNOMED Code(s): 772138193 ICD Code: R60.9 - EDEMA, UNSPECIFIED Status: Chronic Current Visit: No (8) DM type 2 (diabetes mellitus, type 2) SNOMED Code(s): 14606371 ICD Code: E11.9 - TYPE 2 DIABETES MELLITUS WITHOUT COMPLICATIONS Status: Chronic Current Visit: No Qualifiers: Diabetes mellitus complication status: without complication Diabetes mellitus parts counterman insulin use: without parts counterman use Qualified Code(s): E11.9 - Type 2 diabetes mellitus without complications (9) HTN (hypertension) SNOMED Code(s): 41560014 ICD Code: I10 - ESSENTIAL (PRIMARY) HYPERTENSION Status: Chronic Current Visit: No Qualifiers: Hypertension type: essential hypertension Qualified Code(s): I10 - Essential (primary) hypertension (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 SNOMED Code(s): 296757395 ICD Code: Z95.1 - PRESENCE OF AORTOCORONARY BYPASS GRAFT Status: Chronic Current Visit: No (11) Hx of diverticulitis of colon SNOMED Code(s): 593735066888659 ICD Code: Z87.19 - PERSONAL HISTORY OF OTHER DISEASES OF THE DIGESTIVE SYSTEM Status: Chronic Current Visit: No (12) Irregular cardiac rhythm SNOMED Code(s): 869309701, 791066088 ICD Code: I49.9 - CARDIAC ARRHYTHMIA, UNSPECIFIED Status: Chronic Current Visit: No (13) CHF (congestive heart failure) SNOMED Code(s): 48848451 ICD Code: I50.9 - HEART FAILURE, UNSPECIFIED Status: Chronic Current Visit: Yes Qualifiers: Heart failure type: unspecified Heart failure chronicity: chronic Qualified Code(s): I50.9 - Heart failure, unspecified Problem List Initiated/Reviewed/Updated: Yes Orders Last 24hrs: Active Orders 24 hr Category Date Time Status Patient Status [ADT] Stat ADT 10/13/17 12:51 Ordered Blood Glucose Check, Bedside [RC] Q2H Care 10/13/17 11:55 Active Intake and Output [RC] QSHIFT Care 10/13/17 11:55 Active Oxygen Therapy [RC] PRN Care 10/13/17 11:55 Active Telemetry Monitoring [Cardiac Monitoring] [RC] Q8H Care 10/13/17 11:57 Active Up With Assistance [RC] ASDIRECTED Care 10/13/17 11:55 Active VTE/DVT Education [RC] PER UNIT ROUTINE Care 10/13/17 11:55 Active Vital Signs [RC] Q4H Care 10/13/17 11:55 Active Consult to Physical Therapy [PT Evaluation and Cons 10/14/17 08:00 Ordered Treatment] [CONS] Routine [employer] Diet [DIET] Diet 10/13/17 Lunch Active BASIC METABOLIC PANEL,BMP [CHEM] AM Lab 10/14/17 05:11 Ordered BMP [BASIC METABOLIC PANEL,BMP] [CHEM] Timed Lab 10/13/17 18:00 Ordered CBC WITH AUTO DIFF [HEME] AM Lab 10/14/17 05:11 Ordered MAGNESIUM [CHEM] Timed Lab 10/13/17 18:00 Ordered Acetaminophen [Tylenol] Med 10/13/17 11:55 Active 650 mg PO Q4H PRN Loperamide [Imodium] Med 10/13/17 13:00 Ordered 2 mg PO BID Magnesium Sulfate/Water [Magnesium Sulfate 4 GM in Med 10/13/17 12:50 Ordered Water 100 ML] 4 gm Premix Bag 1 bag IV ONETIME Ondansetron [Zofran] Med 10/13/17 11:55 Active 4 mg IVPUSH Q4H PRN Medication Orders Acetaminophen (Tylenol) 650 mg PO Q4H PRN PRN Reason: Pain (mild 1-3) Magnesium Sulfate 4 gm/ Premix 100 mls @ 50 mls/hr IV ONETIME ONE Stop: 10/13/17 14:49 Loperamide HCl (Imodium) 2 mg PO BID NADINE Ondansetron HCl (Zofran) 4 mg IVPUSH Q4H PRN PRN Reason: Nausea Assessment/Plan Comment:: This 86 year old male admitted with hypoglycemia, electrolyte abnormalities, failure to thrive and generalized weakness. 1. Hypoglycemia: Improving. Will hold IVFs for now due to CHF. BS on admission to Med/surg 133 and lunch ordered. Will hold diabetic medications, Metformin and Glipizide for now. Monitor BS q 2 hr until stable. ADA diet. 2. Electrolyte abnormalities: Monitor on telemetry. Magnesium 0.9, 4 gm IV to be given now and PO potassium. Will recheck this evening. and supplement as needed. Was just seen at [facility] on Tuesday and Potassium noted to be 3.1, PO supplementation ordered. Phosphorus 2.2, will replace orally. and recheck all in am. 3. Failure to thrive: Losing weight and not eating much at home. Does have meals on wheels but daughter has noticed many of them half eaten or thrown away. Massiel notes he is feeling very depressed and lonely at home with he decline since fall in June, feels [place] is the best place for him because he has not been doing well alone at home recently. Protein low and weight loss noted. Will consult dietary. 4. Generalized weakness: Will have PT evaluate and treat in am. Arrange [place] placement. 5. Hx CHF: Stable. Monitor daily weights and strict I/O. Compression stockings to lower legs during the day and off at night due to BLE edema. 6. HTN: Monitor BP today, hold BP meds today. Likely restart in am. No sign of acute infection. Will hold off on antibiotics for now, recheck labwork in am. 7. DM type 2: See above hypoglycemia. Holding PO meds for now. 8. CAD: Stable continue ASA and statin daily. Monitor VTE prophylaxis: Heparin Q12h Dispo: Pending [place] placement, likely Tuesday.
[2017-10-13] MEDS: Loperamide 2 MG Cap PO SCH ×2 (13:21→20:09)
[2017-10-13] MEDS ORDERED: diphenhydrAMINE 25 MG Cap PO PRN (14:31)
[2017-10-13] MEDS: Phosphorus #1 250 MG Tab PO SCH (17:52)
[2017-10-13] MEDS: Ferrous Sulfate 325 MG Tab PO SCH (17:52)
[2017-10-13 18:35] LABS: CHLORIDE,CL 99 mmol/L (98-110); SODIUM,NA 135 mmol/L (136-146)
[2017-10-13] MEDS ORDERED: Magnesium Sulfate/Water 2 GM in Premix Bag 1 BAG IV ONE (19:43)
[2017-10-13] MEDS: Simvastatin 40 MG Tab PO SCH (20:09)
[2017-10-13] MEDS: Mirtazapine 15 MG Tab PO SCH ×2 (20:10→20:15)
[2017-10-13] MEDS: Heparin Sodium 5,000 Units/ML Vial SUBCUT SCH (20:11)
[2017-10-13] MEDS ORDERED: Ferrous Sulfate 325 MG Tab PO SCH (22:00)
[2017-10-14] MEDS: Phosphorus #1 250 MG Tab PO SCH ×5 (00:01→23:22)
[2017-10-14 05:27] LABS: CHLORIDE,CL 103 mmol/L (98-110); SODIUM,NA 135 mmol/L (136-146)
[2017-10-14] MEDS ORDERED: 50% Dextrose in Water 50 ML Syringe ONE (06:00)
[2017-10-14] MEDS ORDERED: Magnesium Sulfate/Water 2 GM in Premix Bag 1 BAG IV ONE (07:48)
[2017-10-14] MEDS ORDERED: Potassium Chloride 20 MEQ Tab.ER PO ONE (07:48)
--- NOTE | 2017-10-14 07:52 | PCM.PN ---
- General Info Date of Service: 10/14/17 Admission Dx/Problem (Free Text): Admission Diagnosis/Problem Admission Diagnosis/Problem Hypoglycemia Subjective Update: Sitting up in the chair just finished eating breakfast. Feeling generally weak still, but better than yesterday. No chest pain or SOB. Reports swelling to both feet is at is normal. Functional Status: Reports: Pain Controlled, Tolerating Diet, Urinating - Review of Systems General: Reports: Weakness (generalized) HEENT: Reports: No Symptoms. Denies: Headaches, Sore Throat, Visual Changes Pulmonary: Reports: No Symptoms. Denies: Shortness of Breath, Cough, Sputum Cardiovascular: Reports: No Symptoms, Edema (at baseline.). Denies: Chest Pain Gastrointestinal: Reports: No Symptoms. Denies: Abdominal Pain, Diarrhea, Nausea, Vomiting Genitourinary: Reports: No Symptoms. Denies: Dysuria, Frequency, Burning Neurological: Reports: No Symptoms. Denies: Confusion Psychiatric: Reports: No Symptoms. Denies: Confusion - Patient Data Vitals - Most Recent: Last Vital Signs Temp 98 F 10/14/17 03:56 Pulse 62 10/14/17 03:56 Resp 16 10/14/17 03:56 BP 105/66 10/14/17 03:56 Pulse Ox 97 10/14/17 03:56 Weight - Most Recent: 81 kg I&O - Last 24 Hours: Intake & Output 10/13/17 10/14/17 10/14/17 22:59 06:59 14:59 Intake Total 940 400 Output Total 940 390 Balance 0 10 Lab Results Last 24 Hours: Laboratory Results - last 24 hr 10/13/17 10/13/17 10/13/17 Range/Units 13:58 16:15 18:05 WBC (4.0-11.0) K/uL RBC (4.50-5.90) M/uL Hgb (13.0-17.0) g/dL Hct (38.0-50.0) % MCV (80.0-98.0) fL MCH (27.0-32.0) pg MCHC (31.0-37.0) g/dL RDW Std Deviation (28.0-62.0) fl RDW Coeff of Damion (11.0-15.0) % Plt Count (150-400) K/uL MPV (7.40-12.00) fL Add Manual Diff Neutrophils % (Manual) (48.0-80.0) % Band Neutrophils % % Lymphocytes % (Manual) (16.0-40.0) % Monocytes % (Manual) (0.0-15.0) % Nucleated RBC % /100WBC Absolute Seg Neuts (1.4-5.7) Band Neutrophils # Lymphocytes # (Manual) (0.6-2.4) Monocytes # (Manual) (0.0-0.8) Nucleated RBCs # K/uL Sodium 135 L (136-146) mmol/L Potassium 3.2 L (3.5-5.1) mmol/L Chloride 99 (98-110) mmol/L Carbon Dioxide 28 (21-31) mmol/L BUN 12 (6.0-23.0) mg/dL Creatinine 0.6 (0.6-1.5) mg/dL Est Cr Clr Drug Dosing 97.61 mL/min Estimated GFR (MDRD) > 60.0 ml/min Glucose 62 (60-110) mg/dL POC Glucose 98 109 (60-110) mg/dL Calcium 7.7 L (8.8-10.8) mg/dL Phosphorus (2.4-4.7) mg/dL Magnesium 1.4 L (1.5-2.3) mEq/L 10/13/17 10/14/17 10/14/17 Range/Units 21:35 00:04 03:51 WBC (4.0-11.0) K/uL RBC (4.50-5.90) M/uL Hgb (13.0-17.0) g/dL Hct (38.0-50.0) % MCV (80.0-98.0) fL MCH (27.0-32.0) pg MCHC (31.0-37.0) g/dL RDW Std Deviation (28.0-62.0) fl RDW Coeff of Damion (11.0-15.0) % Plt Count (150-400) K/uL MPV (7.40-12.00) fL Add Manual Diff Neutrophils % (Manual) (48.0-80.0) % Band Neutrophils % % Lymphocytes % (Manual) (16.0-40.0) % Monocytes % (Manual) (0.0-15.0) % Nucleated RBC % /100WBC Absolute Seg Neuts (1.4-5.7) Band Neutrophils # Lymphocytes # (Manual) (0.6-2.4) Monocytes # (Manual) (0.0-0.8) Nucleated RBCs # K/uL Sodium (136-146) mmol/L Potassium (3.5-5.1) mmol/L Chloride (98-110) mmol/L Carbon Dioxide (21-31) mmol/L BUN (6.0-23.0) mg/dL Creatinine (0.6-1.5) mg/dL Est Cr Clr Drug Dosing mL/min Estimated GFR (MDRD) ml/min Glucose (60-110) mg/dL POC Glucose 106 101 99 (60-110) mg/dL Calcium (8.8-10.8) mg/dL Phosphorus (2.4-4.7) mg/dL Magnesium (1.5-2.3) mEq/L 10/14/17 10/14/17 Range/Units 04:40 04:40 WBC 4.78 (4.0-11.0) K/uL RBC 4.03 L (4.50-5.90) M/uL Hgb 10.0 L (13.0-17.0) g/dL Hct 31.3 L (38.0-50.0) % MCV 77.7 L (80.0-98.0) fL MCH 24.8 L (27.0-32.0) pg MCHC 31.9 (31.0-37.0) g/dL RDW Std Deviation 45.7 (28.0-62.0) fl RDW Coeff of Damion 16 H (11.0-15.0) % Plt Count 271 (150-400) K/uL MPV 8.40 (7.40-12.00) fL Add Manual Diff YES Neutrophils % (Manual) 64 (48.0-80.0) % Band Neutrophils % 16 % Lymphocytes % (Manual) 18 (16.0-40.0) % Monocytes % (Manual) 2 (0.0-15.0) % Nucleated RBC % 0.0 /100WBC Absolute Seg Neuts 3.1 (1.4-5.7) Band Neutrophils # 0.8 Lymphocytes # (Manual) 0.9 (0.6-2.4) Monocytes # (Manual) 0.1 (0.0-0.8) Nucleated RBCs # 0 K/uL Sodium 135 L (136-146) mmol/L Potassium 3.7 (3.5-5.1) mmol/L Chloride 103 (98-110) mmol/L Carbon Dioxide 27 (21-31) mmol/L BUN 12 (6.0-23.0) mg/dL Creatinine 0.6 (0.6-1.5) mg/dL Est Cr Clr Drug Dosing 97.61 mL/min Estimated GFR (MDRD) > 60.0 ml/min Glucose 93 (60-110) mg/dL POC Glucose (60-110) mg/dL Calcium 7.3 L (8.8-10.8) mg/dL Phosphorus 2.5 (2.4-4.7) mg/dL Magnesium 1.5 (1.5-2.3) mEq/L Med Orders - Current: Current Medications Acetaminophen (Tylenol) 650 mg PO Q4H PRN PRN Reason: Pain (mild 1-3) Ascorbic Acid (Vitamin C) 500 mg PO DAILY [facility] Aspirin (Aspirin) 325 mg PO DAILY [facility] Calcium Carbonate/Glycine (Tums) 1,000 mg PO BID [facility] Stop: 10/15/17 09:01 Diphenhydramine HCl (Benadryl) 25 mg PO BEDTIME PRN PRN Reason: Allergies Ferrous Sulfate (Ferrous Sulfate) 325 mg PO TIDMEALS [facility] Last Admin: 10/13/17 17:52 Dose: 325 mg Heparin Sodium (Porcine) (Heparin Sodium) 5,000 units SUBCUT Q12HR [facility] Last Admin: 10/13/17 20:11 Dose: 5,000 units Magnesium Sulfate 2 gm/ Premix 50 mls @ 50 mls/hr IV ONETIME ONE Stop: 10/14/17 08:47 Loperamide HCl (Imodium) 2 mg PO BID [facility] Last Admin: 10/13/17 20:09 Dose: 2 mg Mirtazapine (Remeron) 15 mg PO BEDTIME [facility] Last Admin: 10/13/17 20:15 Dose: Not Given Non-Formulary Medication (Metoprolol Succinate [Toprol Xl]) 100 mg PO DAILY [facility] Ondansetron HCl (Zofran) 4 mg IVPUSH Q4H PRN PRN Reason: Nausea Oxybutynin Chloride (Oxybutynin) 5 mg PO DAILY [facility] Potassium Chloride (Klor-Con M20) 40 meq PO ONETIME ONE Stop: 10/14/17 07:49 Simvastatin (Zocor) 40 mg PO BEDTIME [facility] Last Admin: 10/13/17 20:09 Dose: 40 mg Sodium Phosphate (Neutra-Phos) 250 mg PO QID [facility] Last Admin: 10/14/17 06:24 Dose: 250 mg Vitamin E (Vitamin E) 400 units PO DAILY [facility] Discontinued Medications Dextrose/Water (Dextrose 50% In Water) 50 ml IVPUSH ONETIME ONE Stop: 10/13/17 09:16 Last Admin: 10/13/17 09:15 Dose: 50 ml Ferrous Sulfate (Ferrous Sulfate) 325 mg PO TID [facility] Dextrose/Sodium Chloride (Dextrose 5%-1/2 Ns) 1,000 mls @ 125 mls/hr IV ASDIRECTED [facility] Last Infusion: 10/13/17 10:25 Dose: 125 mls/hr Potassium Cl/Dextrose/Lact Ringer's (D5 Lr With 20 Meq Kcl) 1,000 mls @ 125 mls /hr IV ASDIRECTED [facility] Last Infusion: 10/13/17 10:00 Dose: 999 mls/hr Levofloxacin/Dextrose 500 mg/ (Premix) 100 mls @ 100 mls/hr IV ONETIME ONE Stop: 10/13/17 11:12 Last Admin: 10/13/17 11:16 Dose: 100 mls/hr Magnesium Sulfate 4 gm/ Premix 100 mls @ 50 mls/hr IV ONETIME ONE Stop: 10/13/17 14:49 Last Admin: 10/13/17 13:22 Dose: 50 mls/hr Magnesium Sulfate 2 gm/ Premix 50 mls @ 50 mls/hr IV ONETIME ONE Stop: 10/13/17 20:42 Last Admin: 10/13/17 20:10 Dose: 50 mls/hr Potassium Chloride (Klor-Con M20) 40 meq PO ONETIME ONE Stop: 10/13/17 11:56 Last Admin: 10/13/17 13:21 Dose: 40 meq Potassium Chloride (Klor-Con M20) 40 meq PO ONETIME ONE Stop: 10/13/17 17:01 Last Admin: 10/13/17 17:52 Dose: 40 meq Potassium Chloride (Klor-Con M20) 40 meq PO ONETIME ONE Stop: 10/13/17 22:01 Last Admin: 10/13/17 21:30 Dose: 40 meq - Exam General: Alert, Oriented, Cooperative, No Acute Distress Neck: Supple Lungs: Clear to Auscultation, Normal Respiratory Effort Cardiovascular: Regular Rate, Regular Rhythm GI/Abdominal Exam: Normal Bowel Sounds, Soft, Non-Tender, No Organomegaly, No Distention, No Abnormal Bruit, No Mass, Pelvis Stable Extremities: Normal Inspection, Normal Range of Motion, Non-Tender, Normal Capillary Refill, Pedal Edema (+3 to L and +2 to R, patient reports at baseline , compression stockings in place.) Neurological: No New Focal Deficit Psy/Mental Status: Alert, Normal Affect, Normal Mood - Problem List & Annotations (1) Hypoglycemia SNOMED Code(s): 792648817 Code(s): E16.2 - HYPOGLYCEMIA, UNSPECIFIED Status: Acute Current Visit: Yes (2) Generalized weakness SNOMED Code(s): 39021243 Code(s): R53.1 - WEAKNESS Status: Acute Current Visit: Yes (3) Hypomagnesemia SNOMED Code(s): 851389701 Code(s): E83.42 - HYPOMAGNESEMIA Status: Acute Current Visit: Yes (4) Hypokalemia SNOMED Code(s): 12743856 Code(s): E87.6 - HYPOKALEMIA Status: Acute Current Visit: Yes (5) Failure to thrive in adult SNOMED Code(s): 920912033 Code(s): R62.7 - ADULT FAILURE TO THRIVE Status: Acute Current Visit: Yes (6) Protein malnutrition SNOMED Code(s): 720722349 Code(s): E46 - UNSPECIFIED PROTEIN-CALORIE MALNUTRITION Status: Acute Current Visit: Yes (7) Dependent edema SNOMED Code(s): 902087532 Code(s): R60.9 - EDEMA, UNSPECIFIED Status: Chronic Current Visit: No (8) DM type 2 (diabetes mellitus, type 2) SNOMED Code(s): 45375167 Code(s): E11.9 - TYPE 2 DIABETES MELLITUS WITHOUT COMPLICATIONS Status: Chronic Current Visit: No Qualifiers: Diabetes mellitus complication status: without complication Diabetes mellitus halfway insulin use: without physician/internist use Qualified Code(s): E11.9 - Type 2 diabetes mellitus without complications (9) HTN (hypertension) SNOMED Code(s): 76705269 Code(s): I10 - ESSENTIAL (PRIMARY) HYPERTENSION Status: Chronic Current Visit: No Qualifiers: Hypertension type: essential hypertension Qualified Code(s): I10 - Essential (primary) hypertension (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 SNOMED Code(s): 009662081 Code(s): Z95.1 - PRESENCE OF AORTOCORONARY BYPASS GRAFT Status: Chronic Current Visit: No (11) Hx of diverticulitis of colon SNOMED Code(s): 388964236518260 Code(s): Z87.19 - PERSONAL HISTORY OF OTHER DISEASES OF THE DIGESTIVE SYSTEM Status: Chronic Current Visit: No (12) Irregular cardiac rhythm SNOMED Code(s): 046416585, 392102334 Code(s): I49.9 - CARDIAC ARRHYTHMIA, UNSPECIFIED Status: Chronic Current Visit: No (13) CHF (congestive heart failure) SNOMED Code(s): 69971998 Code(s): I50.9 - HEART FAILURE, UNSPECIFIED Status: Chronic Current Visit : Yes Qualifiers: Heart failure type: unspecified Heart failure chronicity: chronic Qualified Code(s): I50.9 - Heart failure, unspecified - Problem List Review Problem List Initiated/Reviewed/Updated: Yes - My Orders Last 24 Hours: My Active Orders 10/13/17 13:10 EDDI Hose [Antiembolic Hose] [OM.PC] Routine 10/13/17 13:20 Resuscitation Status Routine 10/13/17 13:37 Consult to Outside Parts Salesman [CONS] Routine 10/13/17 13:39 Height and Weight [RC] DAILY Intake and Output Strict [RC] ASDIRECTED 10/13/17 14:31 diphenhydrAMINE [Benadryl] 25 mg PO BEDTIME PRN 10/13/17 16:26 Communication Order [RC] PRN 10/13/17 17:30 Ferrous Sulfate 325 mg PO TIDMEALS 10/13/17 18:00 Phosphorus #1 [Neutra-Phos] 250 mg PO QID 10/13/17 21:00 Heparin Sodium 5,000 units SUBCUT Q12HR Mirtazapine [Remeron] 15 mg PO BEDTIME Simvastatin [Zocor] 40 mg PO BEDTIME 10/14/17 07:48 Magnesium Sulfate/Water [Magnesium Sulfate 2 GM in Water 50 ML] 2 gm Premix Bag 1 bag IV ONETIME Potassium Chloride [Klor-Con M20] 40 meq PO ONETIME ONE 10/14/17 07:49 GLYCOSYLATED HEMOGLOBIN,HGBA1C [CHEM] Routine 10/14/17 08:00 Consult to Physical Therapy [PT Evaluation and Treatment] [CONS] Routine 10/14/17 09:00 Ascorbic Acid [Vitamin C] 500 mg PO DAILY Aspirin 325 mg PO DAILY Calcium Carbonate [Tums] 1,000 mg PO BID Metoprolol Succinate [Toprol XL] 100 mg PO DAILY Oxybutynin 5 mg PO DAILY Vitamin E (dl, acetate) [Vitamin E] 400 units PO DAILY 10/15/17 05:11 MAGNESIUM [CHEM] AM PHOSPHORUS [CHEM] AM 10/16/17 05:11 MAGNESIUM [CHEM] AM PHOSPHORUS [CHEM] AM 10/17/17 05:11 MAGNESIUM [CHEM] AM PHOSPHORUS [CHEM] AM - Plan Plan:: This 86 year old male admitted with hypoglycemia, electrolyte abnormalities, failure to thrive and generalized weakness. 1. Hypoglycemia: Resolved. Holding diabetic medications, Metformin and Glipizide. Will discontinue Glipizide and then decrease Metformin dosing. Monitor BS with meals. ADA diet. A1c 6.2. 2. Electrolyte abnormalities: Improving. Monitor on telemetry. Magnesium 1.5, 2 gm IV given this morning. K+ 3.7 40 meq PO potassium this am. Phosphorus 2.5, replace orally QID. recheck all in am. 3. Failure to thrive: Eating since meals are provided. Losing weight and not eating much at home. Protein low and weight loss noted. Will consult dietary. 4. Generalized weakness: Improving. PT evaluate and treat. Arrange [place] placement. 5. Hx CHF: Stable. Monitor daily weights and strict I/O. Compression stockings to lower legs during the day and off at night due to BLE edema. 6. HTN: Stable, on the lower side. Continue to hold PO medications. But will restart Metoprolol due to irregular heart rhythm. 7. DM type 2: A1c 6.2, his last was 7.4. Likely improved due to weight loss. Holding PO meds for now. 8. CAD: Stable continue ASA and statin daily. Monitor VTE prophylaxis: Heparin Q12h Dispo: Pending Nam placement, likely Tuesday.
[2017-10-14] MEDS: Ferrous Sulfate 325 MG Tab PO SCH ×3 (08:05→17:51)
[2017-10-14] MEDS: Calcium Carbonate 500 MG Tab.Chew PO SCH ×2 (08:05→20:12)
[2017-10-14] MEDS: Oxybutynin 5 MG Tab PO SCH (08:05)
[2017-10-14] MEDS: Vitamin E (dl-alpha-tocopherol acetate) 400 Unit Cap PO SCH (08:05)
[2017-10-14] MEDS: Aspirin 325 MG Tab PO SCH (08:05)
[2017-10-14] MEDS: Ascorbic Acid 500 MG Tab PO SCH (08:05)
[2017-10-14] MEDS: Heparin Sodium 5,000 Units/ML Vial SUBCUT SCH ×2 (08:07→20:11)
[2017-10-14] MEDS: Loperamide 2 MG Cap PO SCH ×2 (09:09→20:14)
[2017-10-14] MEDS: Metoprolol Succinate 100 MG Tab.ER PO SCH (09:12)
[2017-10-14] MEDS ORDERED: Calcium Carbonate 500 MG Tab.Chew PO PRN (19:33)
[2017-10-14] MEDS: Simvastatin 40 MG Tab PO SCH (20:12)
[2017-10-14] MEDS: Mirtazapine 15 MG Tab PO SCH (20:13)
[2017-10-15] MEDS: Phosphorus #1 250 MG Tab PO SCH ×4 (05:58→23:52)
[2017-10-15 06:43] LABS: CHLORIDE,CL 103 mmol/L (98-110); SODIUM,NA 135 mmol/L (136-146)
[2017-10-15] MEDS: Heparin Sodium 5,000 Units/ML Vial SUBCUT SCH ×2 (09:01→20:40)
[2017-10-15] MEDS: Ferrous Sulfate 325 MG Tab PO SCH ×3 (09:02→18:22)
[2017-10-15] MEDS: Calcium Carbonate 500 MG Tab.Chew PO SCH (09:02)
[2017-10-15] MEDS: Metoprolol Succinate 100 MG Tab.ER PO SCH (09:03)
[2017-10-15] MEDS: Vitamin E (dl-alpha-tocopherol acetate) 400 Unit Cap PO SCH (09:03)
[2017-10-15] MEDS: Ascorbic Acid 500 MG Tab PO SCH (09:03)
[2017-10-15] MEDS: Oxybutynin 5 MG Tab PO SCH (09:03)
[2017-10-15] MEDS: Loperamide 2 MG Cap PO SCH ×2 (09:03→20:41)
[2017-10-15] MEDS: Aspirin 325 MG Tab PO SCH (09:03)
[2017-10-15] MEDS ORDERED: Magnesium Sulfate/Water 4 GM in Premix Bag 1 BAG IV ONE (09:08)
[2017-10-15] MEDS ORDERED: Phosphorus #1 250 MG Tab PO ONE (09:12)
[2017-10-15] MEDS ORDERED: Phosphorus #1 250 MG Tab PO SCH (12:00)
--- NOTE | 2017-10-15 13:11 | PCM.PN ---
- General Info Date of Service: 10/15/17 Subjective Update: Patient is doing better, gaining more strength, eating well, glucose has stabilized. Patient does not have any diarrhea or constipation. Patient does not have any fevers chills or signs of infection. - Review of Systems General: Reports: Weakness - Patient Data Vitals - Most Recent: Last Vital Signs Temp 36.8 C 10/15/17 12:00 Pulse 84 10/15/17 12:00 Resp 16 10/15/17 12:00 BP 109/58 L 10/15/17 12:00 Pulse Ox 97 10/15/17 12:00 Weight - Most Recent: 80.5 kg I&O - Last 24 Hours: Intake & Output 10/14/17 10/15/17 10/15/17 22:59 06:59 14:59 Intake Total 340 100 Output Total 450 Balance 340 -350 Lab Results Last 24 Hours: Laboratory Results - last 24 hr 10/14/17 10/15/17 10/15/17 Range/Units 17:09 06:04 06:04 WBC 4.81 (4.0-11.0) K/uL RBC 3.81 L (4.50-5.90) M/uL Hgb 9.3 L (13.0-17.0) g/dL Hct 29.9 L (38.0-50.0) % MCV 78.5 L (80.0-98.0) fL MCH 24.4 L (27.0-32.0) pg MCHC 31.1 (31.0-37.0) g/dL RDW Std Deviation 46.9 (28.0-62.0) fl RDW Coeff of Damion 17 H (11.0-15.0) % Plt Count 254 (150-400) K/uL MPV 8.50 (7.40-12.00) fL Neut % (Auto) 64.7 (48.0-80.0) % Lymph % (Auto) 29.5 (16.0-40.0) % Bertie % (Auto) 5.2 (0.0-15.0) % Eos % (Auto) 0.6 (0.0-7.0) % Baso % (Auto) 0.0 (0.0-1.5) % Neut # (Auto) 3.1 (1.4-5.7) K/uL Lymph # (Auto) 1.4 (0.6-2.4) K/uL Bertie # (Auto) 0.3 (0.0-0.8) K/uL Eos # (Auto) 0.0 (0.0-0.7) K/uL Baso # (Auto) 0.0 (0.0-0.1) K/uL Nucleated RBC % 0.0 /100WBC Nucleated RBCs # 0 K/uL Sodium 135 L (136-146) mmol/L Potassium 3.8 (3.5-5.1) mmol/L Chloride 103 (98-110) mmol/L Carbon Dioxide 25 (21-31) mmol/L BUN 10 (6.0-23.0) mg/dL Creatinine 0.6 (0.6-1.5) mg/dL Est Cr Clr Drug Dosing 97.61 mL/min Estimated GFR (MDRD) > 60.0 ml/min Glucose 93 (60-110) mg/dL POC Glucose 154 H (60-110) mg/dL Calcium 7.2 L (8.8-10.8) mg/dL Phosphorus 2.3 L (2.4-4.7) mg/dL Magnesium 1.2 L (1.5-2.3) mEq/L Med Orders - Current: Current Medications Acetaminophen (Tylenol) 650 mg PO Q4H PRN PRN Reason: Pain (mild 1-3) Ascorbic Acid (Vitamin C) 500 mg PO DAILY [facility] Last Admin: 10/15/17 09:03 Dose: 500 mg Aspirin (Aspirin) 325 mg PO DAILY [facility] Last Admin: 10/15/17 09:03 Dose: 325 mg Calcium Carbonate/Glycine (Tums) 1,000 mg PO TID PRN PRN Reason: Indigestion Diphenhydramine HCl (Benadryl) 25 mg PO BEDTIME PRN PRN Reason: Allergies Ferrous Sulfate (Ferrous Sulfate) 325 mg PO TIDMEALS [facility] Last Admin: 10/15/17 12:13 Dose: 325 mg Heparin Sodium (Porcine) (Heparin Sodium) 5,000 units SUBCUT Q12HR [facility] Last Admin: 10/15/17 09:01 Dose: 5,000 units Magnesium Sulfate 4 gm/ Premix 100 mls @ 25 mls/hr IV ONETIME ONE Stop: 10/15/17 13:07 Last Admin: 10/15/17 09:53 Dose: 25 mls/hr Loperamide HCl (Imodium) 2 mg PO BID [facility] Last Admin: 10/15/17 09:03 Dose: 2 mg Metoprolol Succinate (Toprol Xl) 100 mg PO DAILY [facility] Last Admin: 10/15/17 09:03 Dose: 100 mg Mirtazapine (Remeron) 15 mg PO BEDTIME [facility] Last Admin: 10/14/17 20:13 Dose: 15 mg Ondansetron HCl (Zofran) 4 mg IVPUSH Q4H PRN PRN Reason: Nausea Oxybutynin Chloride (Oxybutynin) 5 mg PO DAILY [facility] Last Admin: 10/15/17 09:03 Dose: 5 mg Simvastatin (Zocor) 40 mg PO BEDTIME [facility] Last Admin: 10/14/17 20:12 Dose: 40 mg Sodium Phosphate (Neutra-Phos) 250 mg PO QID [facility] Last Admin: 10/15/17 12:12 Dose: 250 mg Vitamin E (Vitamin E) 400 units PO DAILY [facility] Last Admin: 10/15/17 09:03 Dose: 400 units Discontinued Medications Calcium Carbonate/Glycine (Tums) 1,000 mg PO BID [facility] Stop: 10/15/17 09:01 Last Admin: 10/15/17 09:02 Dose: 1,000 mg Dextrose/Water (Dextrose 50% In Water) 50 ml IVPUSH ONETIME ONE Stop: 10/13/17 09:16 Last Admin: 10/13/17 09:15 Dose: 50 ml Ferrous Sulfate (Ferrous Sulfate) 325 mg PO TID [facility] Dextrose/Sodium Chloride (Dextrose 5%-1/2 Ns) 1,000 mls @ 125 mls/hr IV ASDIRECTED [facility] Last Infusion: 10/13/17 10:25 Dose: 125 mls/hr Potassium Cl/Dextrose/Lact Ringer's (D5 Lr With 20 Meq Kcl) 1,000 mls @ 125 mls /hr IV ASDIRECTED [facility] Last Infusion: 10/13/17 10:00 Dose: 999 mls/hr Levofloxacin/Dextrose 500 mg/ (Premix) 100 mls @ 100 mls/hr IV ONETIME ONE Stop: 10/13/17 11:12 Last Admin: 10/13/17 11:16 Dose: 100 mls/hr Magnesium Sulfate 4 gm/ Premix 100 mls @ 50 mls/hr IV ONETIME ONE Stop: 10/13/17 14:49 Last Admin: 10/13/17 13:22 Dose: 50 mls/hr Magnesium Sulfate 2 gm/ Premix 50 mls @ 50 mls/hr IV ONETIME ONE Stop: 10/13/17 20:42 Last Admin: 10/13/17 20:10 Dose: 50 mls/hr Magnesium Sulfate 2 gm/ Premix 50 mls @ 50 mls/hr IV ONETIME ONE Stop: 10/14/17 08:47 Last Admin: 10/14/17 08:07 Dose: 50 mls/hr Potassium Chloride (Klor-Con M20) 40 meq PO ONETIME ONE Stop: 10/13/17 11:56 Last Admin: 10/13/17 13:21 Dose: 40 meq Potassium Chloride (Klor-Con M20) 40 meq PO ONETIME ONE Stop: 10/13/17 17:01 Last Admin: 10/13/17 17:52 Dose: 40 meq Potassium Chloride (Klor-Con M20) 40 meq PO ONETIME ONE Stop: 10/13/17 22:01 Last Admin: 10/13/17 21:30 Dose: 40 meq Potassium Chloride (Klor-Con M20) 40 meq PO ONETIME ONE Stop: 10/14/17 07:49 Last Admin: 10/14/17 09:12 Dose: 40 meq Sodium Phosphate (Neutra-Phos) 250 mg PO QID [facility] Sodium Phosphate (Neutra-Phos) 250 mg PO DAILY ONE Stop: 10/15/17 09:13 Last Admin: 10/15/17 09:53 Dose: 250 mg - Exam General: Alert, Oriented, Cooperative Lungs: Clear to Auscultation, Normal Respiratory Effort Cardiovascular: Regular Rate, Regular Rhythm GI/Abdominal Exam: Normal Bowel Sounds, Soft Extremities: Pedal Edema - Problem List Review Problem List Initiated/Reviewed/Updated: Yes - My Orders Last 24 Hours: My Active Orders 10/15/17 09:08 Magnesium Sulfate/Water [Magnesium Sulfate 4 GM in Water 100 ML] 4 gm Premix Bag 1 bag IV ONETIME - Plan Plan:: This 86 year old male admitted with hypoglycemia, electrolyte abnormalities, failure to thrive and generalized weakness. 1. Hypoglycemia: Resolved. Holding diabetic medications, Metformin and Glipizide. Will discontinue Glipizide and then decrease Metformin dosing. Monitor BS with meals. ADA diet. A1c 6.2. 2. Electrolyte abnormalities: Monitor on telemetry. Patient had hypomagnesemia, was given 4 g of magnesium IV, potassium is stable, Phosphorus at 2.3 phosphorus being replaced orally 250 mg tablet recheck all in am. 3. Failure to thrive: Eating since meals are provided. Losing weight and not eating much at home. Protein low and weight loss noted. 4. Generalized weakness: Improving. PT evaluate and treat. Nam placement on Tuesday 5. Hx CHF: Stable. Monitor daily weights and strict I/O. Compression stockings to lower legs during the day and off at night due to BLE edema. 6. HTN: Stable, on the lower side. Continue to hold PO medications. But will restart Metoprolol due to irregular heart rhythm. 7. DM type 2: A1c 6.2, his last was 7.4. Likely improved due to weight loss. Holding PO meds for now. 8. CAD: Stable continue ASA and statin daily. Monitor VTE prophylaxis: Heparin Q12h Dispo: Pending [place] placement, likely Tuesday.
[2017-10-15] MEDS: Simvastatin 40 MG Tab PO SCH (20:41)
[2017-10-15] MEDS: Mirtazapine 15 MG Tab PO SCH (20:41)
[2017-10-16] MEDS: Phosphorus #1 250 MG Tab PO SCH ×3 (06:17→18:19)
[2017-10-16 06:34] LABS: CHLORIDE,CL 101 mmol/L (98-110); SODIUM,NA 136 mmol/L (136-146)
[2017-10-16] MEDS: Aspirin 325 MG Tab PO SCH (09:24)
[2017-10-16] MEDS: Vitamin E (dl-alpha-tocopherol acetate) 400 Unit Cap PO SCH (09:24)
[2017-10-16] MEDS: Ascorbic Acid 500 MG Tab PO SCH (09:24)
[2017-10-16] MEDS: Oxybutynin 5 MG Tab PO SCH (09:24)
[2017-10-16] MEDS: Metoprolol Succinate 100 MG Tab.ER PO SCH (09:24)
[2017-10-16] MEDS: Ferrous Sulfate 325 MG Tab PO SCH ×3 (09:24→18:19)
[2017-10-16] MEDS: Loperamide 2 MG Cap PO SCH ×2 (09:24→20:10)
[2017-10-16] MEDS: Heparin Sodium 5,000 Units/ML Vial SUBCUT SCH ×2 (09:24→20:10)
--- NOTE | 2017-10-16 12:38 | PCM.PN ---
- Review of Systems Systems Review Comment:: feeling better, apatite improving - Patient Data Vitals - Most Recent: Last Vital Signs Temp 36.7 C 10/16/17 08:00 Pulse 96 10/16/17 09:24 Resp 16 10/16/17 08:00 BP 106/53 L 10/16/17 09:24 Pulse Ox 93 L 10/16/17 08:00 Weight - Most Recent: 82.508 kg I&O - Last 24 Hours: Intake & Output 10/15/17 10/16/17 10/16/17 22:59 06:59 14:59 Intake Total 840 600 Balance 840 600 Lab Results Last 24 Hours: Laboratory Results - last 24 hr 10/15/17 10/15/17 10/15/17 Range/Units 06:00 10:54 17:34 WBC (4.0-11.0) K/uL RBC (4.50-5.90) M/uL Hgb (13.0-17.0) g/dL Hct (38.0-50.0) % MCV (80.0-98.0) fL MCH (27.0-32.0) pg MCHC (31.0-37.0) g/dL RDW Std Deviation (28.0-62.0) fl RDW Coeff of Damion (11.0-15.0) % Plt Count (150-400) K/uL MPV (7.40-12.00) fL Neut % (Auto) (48.0-80.0) % Lymph % (Auto) (16.0-40.0) % [place] % (Auto) (0.0-15.0) % Eos % (Auto) (0.0-7.0) % Baso % (Auto) (0.0-1.5) % Neut # (Auto) (1.4-5.7) K/uL Lymph # (Auto) (0.6-2.4) K/uL [place] # (Auto) (0.0-0.8) K/uL Eos # (Auto) (0.0-0.7) K/uL Baso # (Auto) (0.0-0.1) K/uL Nucleated RBC % /100WBC Nucleated RBCs # K/uL Sodium (136-146) mmol/L Potassium (3.5-5.1) mmol/L Chloride (98-110) mmol/L Carbon Dioxide (21-31) mmol/L BUN (6.0-23.0) mg/dL Creatinine (0.6-1.5) mg/dL Est Cr Clr Drug Dosing mL/min Estimated GFR (MDRD) ml/min Glucose (60-110) mg/dL POC Glucose 84 207 H 222 H (60-110) mg/dL Calcium (8.8-10.8) mg/dL Phosphorus (2.4-4.7) mg/dL Magnesium (1.5-2.3) mEq/L 10/16/17 10/16/17 10/16/17 Range/Units 05:45 05:45 06:14 WBC 4.35 (4.0-11.0) K/uL RBC 3.77 L (4.50-5.90) M/uL Hgb 9.3 L (13.0-17.0) g/dL Hct 29.5 L (38.0-50.0) % MCV 78.2 L (80.0-98.0) fL MCH 24.7 L (27.0-32.0) pg MCHC 31.5 (31.0-37.0) g/dL RDW Std Deviation 47.0 (28.0-62.0) fl RDW Coeff of Damion 17 H (11.0-15.0) % Plt Count 261 (150-400) K/uL MPV 8.60 (7.40-12.00) fL Neut % (Auto) 72.4 (48.0-80.0) % Lymph % (Auto) 20.9 (16.0-40.0) % [place] % (Auto) 6.2 (0.0-15.0) % Eos % (Auto) 0.5 (0.0-7.0) % Baso % (Auto) 0.0 (0.0-1.5) % Neut # (Auto) 3.2 (1.4-5.7) K/uL Lymph # (Auto) 0.9 (0.6-2.4) K/uL [place] # (Auto) 0.3 (0.0-0.8) K/uL Eos # (Auto) 0.0 (0.0-0.7) K/uL Baso # (Auto) 0.0 (0.0-0.1) K/uL Nucleated RBC % 0.0 /100WBC Nucleated RBCs # 0 K/uL Sodium 136 (136-146) mmol/L Potassium 3.6 (3.5-5.1) mmol/L Chloride 101 (98-110) mmol/L Carbon Dioxide 28 (21-31) mmol/L BUN 10 (6.0-23.0) mg/dL Creatinine 0.6 (0.6-1.5) mg/dL Est Cr Clr Drug Dosing 97.21 mL/min Estimated GFR (MDRD) > 60.0 ml/min Glucose 114 H (60-110) mg/dL POC Glucose 105 (60-110) mg/dL Calcium 7.2 L (8.8-10.8) mg/dL Phosphorus 2.7 (2.4-4.7) mg/dL Magnesium 1.5 (1.5-2.3) mEq/L 10/16/17 Range/Units 11:48 WBC (4.0-11.0) K/uL RBC (4.50-5.90) M/uL Hgb (13.0-17.0) g/dL Hct (38.0-50.0) % MCV (80.0-98.0) fL MCH (27.0-32.0) pg MCHC (31.0-37.0) g/dL RDW Std Deviation (28.0-62.0) fl RDW Coeff of Damion (11.0-15.0) % Plt Count (150-400) K/uL MPV (7.40-12.00) fL Neut % (Auto) (48.0-80.0) % Lymph % (Auto) (16.0-40.0) % [place] % (Auto) (0.0-15.0) % Eos % (Auto) (0.0-7.0) % Baso % (Auto) (0.0-1.5) % Neut # (Auto) (1.4-5.7) K/uL Lymph # (Auto) (0.6-2.4) K/uL [place] # (Auto) (0.0-0.8) K/uL Eos # (Auto) (0.0-0.7) K/uL Baso # (Auto) (0.0-0.1) K/uL Nucleated RBC % /100WBC Nucleated RBCs # K/uL Sodium (136-146) mmol/L Potassium (3.5-5.1) mmol/L Chloride (98-110) mmol/L Carbon Dioxide (21-31) mmol/L BUN (6.0-23.0) mg/dL Creatinine (0.6-1.5) mg/dL Est Cr Clr Drug Dosing mL/min Estimated GFR (MDRD) ml/min Glucose (60-110) mg/dL POC Glucose 161 H (60-110) mg/dL Calcium (8.8-10.8) mg/dL Phosphorus (2.4-4.7) mg/dL Magnesium (1.5-2.3) mEq/L Med Orders - Current: Current Medications Acetaminophen (Tylenol) 650 mg PO Q4H PRN PRN Reason: Pain (mild 1-3) Ascorbic Acid (Vitamin C) 500 mg PO DAILY [facility] Last Admin: 10/16/17 09:24 Dose: 500 mg Aspirin (Aspirin) 325 mg PO DAILY [facility] Last Admin: 10/16/17 09:24 Dose: 325 mg Calcium Carbonate/Glycine (Tums) 1,000 mg PO TID PRN PRN Reason: Indigestion Last Admin: 10/15/17 20:48 Dose: 1,000 mg Diphenhydramine HCl (Benadryl) 25 mg PO BEDTIME PRN PRN Reason: Allergies Ferrous Sulfate (Ferrous Sulfate) 325 mg PO TIDMEALS [facility] Last Admin: 10/16/17 12:23 Dose: 325 mg Heparin Sodium (Porcine) (Heparin Sodium) 5,000 units SUBCUT Q12HR [facility] Last Admin: 10/16/17 09:24 Dose: 5,000 units Loperamide HCl (Imodium) 2 mg PO BID [facility] Last Admin: 10/16/17 09:24 Dose: 2 mg Metoprolol Succinate (Toprol Xl) 100 mg PO DAILY [facility] Last Admin: 10/16/17 09:24 Dose: 100 mg Mirtazapine (Remeron) 15 mg PO BEDTIME [facility] Last Admin: 10/15/17 20:41 Dose: 15 mg Ondansetron HCl (Zofran) 4 mg IVPUSH Q4H PRN PRN Reason: Nausea Oxybutynin Chloride (Oxybutynin) 5 mg PO DAILY [facility] Last Admin: 10/16/17 09:24 Dose: 5 mg Simvastatin (Zocor) 40 mg PO BEDTIME [facility] Last Admin: 10/15/17 20:41 Dose: 40 mg Sodium Phosphate (Neutra-Phos) 250 mg PO QID [facility] Last Admin: 10/16/17 12:23 Dose: 250 mg Vitamin E (Vitamin E) 400 units PO DAILY [facility] Last Admin: 10/16/17 09:24 Dose: 400 units Discontinued Medications Calcium Carbonate/Glycine (Tums) 1,000 mg PO BID NADINE Stop: 10/15/17 09:01 Last Admin: 10/15/17 09:02 Dose: 1,000 mg Dextrose/Water (Dextrose 50% In Water) 50 ml IVPUSH ONETIME ONE Stop: 10/13/17 09:16 Last Admin: 10/13/17 09:15 Dose: 50 ml Dextrose/Water (Dextrose 50% In Water) 50 ml .ROUTE .STK-MED ONE Stop: 10/14/17 06:01 Ferrous Sulfate (Ferrous Sulfate) 325 mg PO TID [facility] Dextrose/Sodium Chloride (Dextrose 5%-1/2 Ns) 1,000 mls @ 125 mls/hr IV ASDIRECTED [facility] Last Infusion: 10/13/17 10:25 Dose: 125 mls/hr Potassium Cl/Dextrose/Lact Ringer's (D5 Lr With 20 Meq Kcl) 1,000 mls @ 125 mls /hr IV ASDIRECTED [facility] Last Infusion: 10/13/17 10:00 Dose: 999 mls/hr Levofloxacin/Dextrose 500 mg/ (Premix) 100 mls @ 100 mls/hr IV ONETIME ONE Stop: 10/13/17 11:12 Last Admin: 10/13/17 11:16 Dose: 100 mls/hr Magnesium Sulfate 4 gm/ Premix 100 mls @ 50 mls/hr IV ONETIME ONE Stop: 10/13/17 14:49 Last Admin: 10/13/17 13:22 Dose: 50 mls/hr Magnesium Sulfate 2 gm/ Premix 50 mls @ 50 mls/hr IV ONETIME ONE Stop: 10/13/17 20:42 Last Admin: 10/13/17 20:10 Dose: 50 mls/hr Magnesium Sulfate 2 gm/ Premix 50 mls @ 50 mls/hr IV ONETIME ONE Stop: 10/14/17 08:47 Last Admin: 10/14/17 08:07 Dose: 50 mls/hr Magnesium Sulfate 4 gm/ Premix 100 mls @ 25 mls/hr IV ONETIME ONE Stop: 10/15/17 13:07 Last Admin: 10/15/17 09:53 Dose: 25 mls/hr Potassium Chloride (Klor-Con M20) 40 meq PO ONETIME ONE Stop: 10/13/17 11:56 Last Admin: 10/13/17 13:21 Dose: 40 meq Potassium Chloride (Klor-Con M20) 40 meq PO ONETIME ONE Stop: 10/13/17 17:01 Last Admin: 10/13/17 17:52 Dose: 40 meq Potassium Chloride (Klor-Con M20) 40 meq PO ONETIME ONE Stop: 10/13/17 22:01 Last Admin: 10/13/17 21:30 Dose: 40 meq Potassium Chloride (Klor-Con M20) 40 meq PO ONETIME ONE Stop: 10/14/17 07:49 Last Admin: 10/14/17 09:12 Dose: 40 meq Sodium Phosphate (Neutra-Phos) 250 mg PO QID NADINE Sodium Phosphate (Neutra-Phos) 250 mg PO DAILY ONE Stop: 10/15/17 09:13 Last Admin: 10/15/17 09:53 Dose: 250 mg - Exam General: Alert, Cooperative Neck: Supple Lungs: Clear to Auscultation, Normal Respiratory Effort Cardiovascular: Regular Rate, Regular Rhythm GI/Abdominal Exam: Soft, Non-Tender Extremities: Pedal Edema (+1 ) - Problem List Review Problem List Initiated/Reviewed/Updated: Yes - Plan Plan:: This 86 year old male admitted with hypoglycemia, electrolyte abnormalities, failure to thrive and generalized weakness. clinically improving, plan is for discharge to [facility] tomorrow.
[2017-10-16] MEDS: Insulin Aspart 100 Units/ML 3 ML Pen SUBCUT SCH (18:20)
[2017-10-16] MEDS: Mirtazapine 15 MG Tab PO SCH (20:10)
[2017-10-16] MEDS: Simvastatin 40 MG Tab PO SCH (20:10)
[2017-10-17] MEDS: Phosphorus #1 250 MG Tab PO SCH ×2 (00:11→05:24)
[2017-10-17] MEDS: Insulin Aspart 100 Units/ML 3 ML Pen SUBCUT SCH (06:30)
[2017-10-17] MEDS: Ferrous Sulfate 325 MG Tab PO SCH (07:54)
[2017-10-17] MEDS: Aspirin 325 MG Tab PO SCH (08:02)
[2017-10-17] MEDS: Loperamide 2 MG Cap PO SCH (08:02)
[2017-10-17] MEDS: Metoprolol Succinate 100 MG Tab.ER PO SCH (08:02)
[2017-10-17] MEDS: Oxybutynin 5 MG Tab PO SCH (08:02)
[2017-10-17] MEDS: Ascorbic Acid 500 MG Tab PO SCH (08:02)
[2017-10-17] MEDS: Vitamin E (dl-alpha-tocopherol acetate) 400 Unit Cap PO SCH (08:02)
[2017-10-17] MEDS: Heparin Sodium 5,000 Units/ML Vial SUBCUT SCH (08:03)
--- NOTE | 2017-10-17 08:46 | PCM.DCSUM1 ---
Discharge Summary - Hospital Course Brief History: This 86 year old male with pmh of CABG x 5, HTN, CHF, DM typ 2, and irregular heart rhythm presented to the ED today via EMS with concerns of generalized weakness and lethargy. He reports yesterday he was up ambulating well per self with walker in his home. His daughter came yesterday to stay with him for a week or so due to family having concerns with him not eating and becoming more weak. He reports he ate well during the day yesterday, but ate very little supper and took evening medications per normal, which includes glipizide. He reports he woke up around 3 am unable to get up and feeling very weak everywhere. He had to urinate badly and yelled for his daughter but she had not heard it. She came to his room this morning and he continued to be unable to get up due to weakness. She then called EMS. Massiel denies having diaphoresis, chest pain, or palpitations during the weakness this morning in bed. He denies nausea dizziness or lightheadedness. His daughter reports slurred speech at times this morning, but once blood sugar improved this went away. He currently denies any chest pain, SOB or palpitations. No abdominal pain , urinary symptoms or focal neurological deficits. he reports feeling just overall weak and tired. In the ED WBC 6,010m Hgb 11.6, lactate 2.0, K+ 2.6, CXR negative and UA negative. BS initially with EMS was in the 50s, on arrival BS in 30s, he was lethargic and given ampule of D50. and D51/2 NS IVF were started, BS elevated to 230s. He did have one episode of hypotension, but BP improved with some fluids and correction of hypoglycemia. He was admitted inpatient for hypoglycemia, electrolyte abnormalities, and generalized weakness. Massiel reports he has not been eating much and since a fall with admission in June 2017, he has lost 25-35 lbs, which is noticeable. He is requesting to be back in [place], because he does live alone and feels he is unable to care for himself appropriately anymore and last night scared him. - Discharge Data Discharge Date: 10/17/17 Discharge Disposition: DC/Tfer to SNF 03 Condition: Good - Discharge Diagnosis/Problem(s) (1) Hypoglycemia SNOMED Code(s): 910664349 ICD Code: E16.2 - HYPOGLYCEMIA, UNSPECIFIED Status: Resolved Current Visit: Yes (2) Generalized weakness SNOMED Code(s): 43269789 ICD Code: R53.1 - WEAKNESS Status: Acute Current Visit: Yes (3) Hypomagnesemia SNOMED Code(s): 818420790 ICD Code: E83.42 - HYPOMAGNESEMIA Status: Resolved Current Visit: Yes (4) Hypokalemia SNOMED Code(s): 84380410 ICD Code: E87.6 - HYPOKALEMIA Status: Resolved Current Visit: Yes (5) Failure to thrive in adult SNOMED Code(s): 301202863 ICD Code: R62.7 - ADULT FAILURE TO THRIVE Status: Acute Current Visit: Yes (6) Protein malnutrition SNOMED Code(s): 710957425 ICD Code: E46 - UNSPECIFIED PROTEIN-CALORIE MALNUTRITION Status: Acute Current Visit: Yes (7) Dependent edema SNOMED Code(s): 313598467 ICD Code: R60.9 - EDEMA, UNSPECIFIED Status: Chronic Current Visit: No (8) DM type 2 (diabetes mellitus, type 2) SNOMED Code(s): 17021876 ICD Code: E11.9 - TYPE 2 DIABETES MELLITUS WITHOUT COMPLICATIONS Status: Chronic Current Visit: No Qualifiers: Diabetes mellitus complication status: without complication Diabetes mellitus senior living insulin use: without middle or intermediate school principal use Qualified Code(s): E11.9 - Type 2 diabetes mellitus without complications (9) HTN (hypertension) SNOMED Code(s): 25924811 ICD Code: I10 - ESSENTIAL (PRIMARY) HYPERTENSION Status: Chronic Current Visit: No Qualifiers: Hypertension type: essential hypertension Qualified Code(s): I10 - Essential (primary) hypertension (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 SNOMED Code(s): 617664857 ICD Code: Z95.1 - PRESENCE OF AORTOCORONARY BYPASS GRAFT Status: Chronic Current Visit: No (11) Hx of diverticulitis of colon SNOMED Code(s): 172059988070722 ICD Code: Z87.19 - PERSONAL HISTORY OF OTHER DISEASES OF THE DIGESTIVE SYSTEM Status: Chronic Current Visit: No (12) Irregular cardiac rhythm SNOMED Code(s): 673812652, 133078401 ICD Code: I49.9 - CARDIAC ARRHYTHMIA, UNSPECIFIED Status: Chronic Current Visit: No (13) CHF (congestive heart failure) SNOMED Code(s): 73779148 ICD Code: I50.9 - HEART FAILURE, UNSPECIFIED Status: Chronic Current Visit: Yes Qualifiers: Heart failure type: unspecified Heart failure chronicity: chronic Qualified Code(s): I50.9 - Heart failure, unspecified - Patient Summary/Data Consults: Consultations 10/13/17 13:37 Consult to [employer] [CONS] Routine 10/14/17 08:00 Consult to Physical Therapy [PT Evaluation and Treatment] [CONS] Routine - Patient Instructions Diet: Heart Healthy Diet, Diabetic Diet Activity: As Tolerated Showering/Bathing: December Shower Notify Provider of: Fever, Increased Pain, Swelling and Redness, Drainage, Nausea and/or Vomiting Other/Special Instructions: PT/OT/ST to evaluate and treat. Compression stockings on in the morning and off in the evening for bilateral lower leg edema - Discharge Plan Prescriptions/Med Rec: Acetaminophen [Tylenol] 650 mg PO Q4H PRN #60 tablet PRN Reason: Pain (Mild 1-3) Mirtazapine 15 mg PO BEDTIME #15 tablet Home Medications: Home Meds Acetaminophen [Tylenol] 650 mg PO Q6HR PRN 06/29/17 [History] Ascorbic Acid [Vitamin C] 500 mg PO DAILY 06/29/17 [History] Aspirin 325 mg PO DAILY 06/29/17 [History] Hydrochlorothiazide 25 mg PO DAILY 06/29/17 [History] Losartan [Cozaar] 25 mg PO DAILY 06/29/17 [History] Oxybutynin 5 mg PO DAILY 06/29/17 [History] Vitamin E Mixed [Vitamin E] 250 units PO DAILY 06/29/17 [History] metFORMIN [Glucophage] 1,000 mg PO DAILY 06/29/17 [History] Ibuprofen 200 mg PO TID PRN #30 07/26/17 [Rx] Ferrous Sulfate 325 mg PO TID 10/13/17 [History] Metoprolol Succinate [Toprol XL] 100 mg PO DAILY 10/13/17 [History] Potassium Chloride [Klor-Con M20] 10 meq PO BID 10/13/17 [History] Simvastatin [Zocor] 40 mg PO BEDTIME 10/13/17 [History] diphenhydrAMINE HCl [Diphenhydramine HCl] 25 mg PO BEDTIME PRN 10/13/17 [History ] Acetaminophen [Tylenol] 650 mg PO Q4H PRN #60 tablet 10/17/17 [Rx] Mirtazapine 15 mg PO BEDTIME #15 tablet 10/17/17 [Rx] Patient Handouts: Mirtazapine tablets, Acetaminophen tablets or caplets, Hypoglycemia, [id number] Referrals: Eliel Trent MD [Physician] - - Discharge Summary/Plan Comment DC Time >30 min.: No Discharge Summary/Plan Comment: Discharge Diagnoses: Generalized weakness Failure to thrive Protein malnutrition dependent edema Hx CHF HTN DM type 2- A1C 6.2 Irregular heart rhythm Hx diverticulosis Hx CABG in 2001 Massiel was admitted and monitored for hypoglycemia and electrolyte abnormalities. Hypoglycemia resolved and BS were decently controlled with no medications. Will plan on discontinuing Glipizide and continuing Metformin daily for now. His hypokalemia, hypomagnesemia, and hypophosphatemia were corrected as well. He continues to feel generally weak and feels he needs more help than he has at home. He is going to be discharged today to [facility]. I have spoken with Dr Trent, who has gladly accepted patient for transfer to [place] upon discharge. Massiel has no complaints today and is doing well. He is to return to ED or clinic if concerns should arise. - General Info Date of Service: 10/17/17 Admission Dx/Problem (Free Text: Admission Diagnosis/Problem Admission Diagnosis/Problem Hypoglycemia Subjective Update: Massiel is doing well this morning. Reports he has no pain, ate breakfast and is now lying in bed. He denies chest pain, SOB or abdominal pain. Functional Status: Reports: Pain Controlled, Tolerating Diet, Ambulating, Urinating - Review of Systems General: Reports: Weakness (generalized). Denies: Fever HEENT: Reports: No Symptoms. Denies: Headaches, Sore Throat, Visual Changes Pulmonary: Reports: No Symptoms. Denies: Shortness of Breath, Cough Cardiovascular: Reports: Edema (BLE, but at baseline.). Denies: Chest Pain, Palpitations Gastrointestinal: Reports: No Symptoms, Flatus. Denies: Abdominal Pain, Nausea , Vomiting Musculoskeletal: Reports: No Symptoms. Denies: Neck Pain Neurological: Reports: No Symptoms. Denies: Confusion Psychiatric: Reports: No Symptoms. Denies: Confusion - Patient Data Vitals - Most Recent: Last Vital Signs Temp 98.5 F 10/17/17 08:00 Pulse 69 10/17/17 08:02 Resp 18 10/17/17 08:00 BP 123/55 L 10/17/17 08:02 Pulse Ox 97 10/17/17 08:00 Weight - Most Recent: 81 kg I&O - Last 24 hours: Intake & Output 10/16/17 10/17/17 10/17/17 22:59 06:59 14:59 Intake Total 800 50 Output Total 450 Balance 800 -400 Lab Results - Last 24 hrs: Laboratory Results - last 24 hr 10/16/17 10/16/17 10/16/17 Range/Units 06:14 11:48 15:59 POC Glucose 105 161 H 240 H (60-110) mg/dL 10/17/17 Range/Units 05:27 POC Glucose 100 (60-110) mg/dL Med Orders - Current: Current Medications Acetaminophen (Tylenol) 650 mg PO Q4H PRN PRN Reason: Pain (mild 1-3) Ascorbic Acid (Vitamin C) 500 mg PO DAILY [facility] Last Admin: 10/17/17 08:02 Dose: 500 mg Aspirin (Aspirin) 325 mg PO DAILY [facility] Last Admin: 10/17/17 08:02 Dose: 325 mg Calcium Carbonate/Glycine (Tums) 1,000 mg PO TID PRN PRN Reason: Indigestion Last Admin: 10/15/17 20:48 Dose: 1,000 mg Diphenhydramine HCl (Benadryl) 25 mg PO BEDTIME PRN PRN Reason: Allergies Ferrous Sulfate (Ferrous Sulfate) 325 mg PO TIDMEALS [facility] Last Admin: 10/17/17 07:54 Dose: 325 mg Heparin Sodium (Porcine) (Heparin Sodium) 5,000 units SUBCUT Q12HR [facility] Last Admin: 10/17/17 08:03 Dose: 5,000 units Insulin Aspart (Novolog) 0 unit SUBCUT TIDAC [facility] PRN Reason: Protocol Last Admin: 10/17/17 06:30 Dose: Not Given Loperamide HCl (Imodium) 2 mg PO BID [facility] Last Admin: 10/17/17 08:02 Dose: 2 mg Metoprolol Succinate (Toprol Xl) 100 mg PO DAILY [facility] Last Admin: 10/17/17 08:02 Dose: 100 mg Mirtazapine (Remeron) 15 mg PO BEDTIME [facility] Last Admin: 10/16/17 20:10 Dose: 15 mg Ondansetron HCl (Zofran) 4 mg IVPUSH Q4H PRN PRN Reason: Nausea Oxybutynin Chloride (Oxybutynin) 5 mg PO DAILY [facility] Last Admin: 10/17/17 08:02 Dose: 5 mg Simvastatin (Zocor) 40 mg PO BEDTIME [facility] Last Admin: 10/16/17 20:10 Dose: 40 mg Sodium Phosphate (Neutra-Phos) 250 mg PO QID [facility] Last Admin: 10/17/17 05:24 Dose: 250 mg Vitamin E (Vitamin E) 400 units PO DAILY [facility] Last Admin: 10/17/17 08:02 Dose: 400 units Discontinued Medications Calcium Carbonate/Glycine (Tums) 1,000 mg PO BID [facility] Stop: 10/15/17 09:01 Last Admin: 10/15/17 09:02 Dose: 1,000 mg Dextrose/Water (Dextrose 50% In Water) 50 ml IVPUSH ONETIME ONE Stop: 10/13/17 09:16 Last Admin: 10/13/17 09:15 Dose: 50 ml Dextrose/Water (Dextrose 50% In Water) 50 ml .ROUTE .STK-MED ONE Stop: 10/14/17 06:01 Ferrous Sulfate (Ferrous Sulfate) 325 mg PO TID [facility] Dextrose/Sodium Chloride (Dextrose 5%-1/2 Ns) 1,000 mls @ 125 mls/hr IV ASDIRECTED [facility] Last Infusion: 10/13/17 10:25 Dose: 125 mls/hr Potassium Cl/Dextrose/Lact Ringer's (D5 Lr With 20 Meq Kcl) 1,000 mls @ 125 mls /hr IV ASDIRECTED [facility] Last Infusion: 10/13/17 10:00 Dose: 999 mls/hr Levofloxacin/Dextrose 500 mg/ (Premix) 100 mls @ 100 mls/hr IV ONETIME ONE Stop: 10/13/17 11:12 Last Admin: 10/13/17 11:16 Dose: 100 mls/hr Magnesium Sulfate 4 gm/ Premix 100 mls @ 50 mls/hr IV ONETIME ONE Stop: 10/13/17 14:49 Last Admin: 10/13/17 13:22 Dose: 50 mls/hr Magnesium Sulfate 2 gm/ Premix 50 mls @ 50 mls/hr IV ONETIME ONE Stop: 10/13/17 20:42 Last Admin: 10/13/17 20:10 Dose: 50 mls/hr Magnesium Sulfate 2 gm/ Premix 50 mls @ 50 mls/hr IV ONETIME ONE Stop: 10/14/17 08:47 Last Admin: 10/14/17 08:07 Dose: 50 mls/hr Magnesium Sulfate 4 gm/ Premix 100 mls @ 25 mls/hr IV ONETIME ONE Stop: 10/15/17 13:07 Last Admin: 10/15/17 09:53 Dose: 25 mls/hr Potassium Chloride (Klor-Con M20) 40 meq PO ONETIME ONE Stop: 10/13/17 11:56 Last Admin: 10/13/17 13:21 Dose: 40 meq Potassium Chloride (Klor-Con M20) 40 meq PO ONETIME ONE Stop: 10/13/17 17:01 Last Admin: 10/13/17 17:52 Dose: 40 meq Potassium Chloride (Klor-Con M20) 40 meq PO ONETIME ONE Stop: 10/13/17 22:01 Last Admin: 10/13/17 21:30 Dose: 40 meq Potassium Chloride (Klor-Con M20) 40 meq PO ONETIME ONE Stop: 10/14/17 07:49 Last Admin: 10/14/17 09:12 Dose: 40 meq Sodium Phosphate (Neutra-Phos) 250 mg PO QID NADINE Sodium Phosphate (Neutra-Phos) 250 mg PO DAILY ONE Stop: 10/15/17 09:13 Last Admin: 10/15/17 09:53 Dose: 250 mg - Exam General: Reports: Alert, Oriented, Cooperative, No Acute Distress HEENT: Reports: Pupils Equal, Pupils Reactive, EOMI, Mucous Membr. Moist/Portia Lungs: Reports: Clear to Auscultation, Normal Respiratory Effort Cardiovascular: Reports: Regular Rate, Regular Rhythm GI/Abdominal Exam: Normal Bowel Sounds, Soft, Non-Tender, No Organomegaly, No Distention, No Abnormal Bruit, No Mass, Pelvis Stable Back Exam: Reports: Normal Inspection, Full Range of Motion Skin: Reports: Warm, Dry Neurological: Reports: No New Focal Deficit Psy/Mental Status: Reports: Alert, Normal Affect, Normal Mood *Q Meaningful Use (DIS) - VTE *Q VTE Criteria *Q: - Stroke *Q Stroke Criteria *Q: - AMI *Q AMI Criteria *Q:
== END 2017-10-17 11:00 | DRG 638 ==
LOC: MW.ED 09:10 → MW.MS 11:18 → OBSVTOIN 12:51 → MW.MS 12:56
PROVIDERS: ADMIT Internal Medicine; ATTEND Internal Medicine
DX: E11.649 Type 2 diabetes mellitus with hypoglycemia without coma (principal); E46 Unspecified protein-calorie malnutrition; I95.9 Hypotension, unspecified; R53.1 Weakness; E83.42 Hypomagnesemia; E87.6 Hypokalemia; R01.1 Cardiac murmur, unspecified; E78.00 Pure hypercholesterolemia, unspecified; R62.7 Adult failure to thrive; R60.9 Edema, unspecified; Z87.891 Personal history of nicotine dependence; I10 Essential (primary) hypertension; I25.10 Atherosclerotic heart disease of native coronary artery without angina pectoris; I49.9 Cardiac arrhythmia, unspecified; I50.9 Heart failure, unspecified; Z95.1 Presence of aortocoronary bypass graft; Z87.19 Personal history of other diseases of the digestive system; Z79.84 Long term (current) use of oral hypoglycemic drugs; Z79.899 Other long term (current) drug therapy; Z88.0 Allergy status to penicillin
CPT/HCPCS: 36415; 71045; 80053; 81001; 82150; 82962 ×4; 83605; 83690; 83735; 84100; 84484; 85025; 87040 ×2; 93005; 96365; 96366; 96368; 96375; 99285; J1956; J3480; J7042; J7060; 80048; 83036; 97161-GP; 99284; A9270-GY; J1644; J1815-GY; J2405; J3475